=== PATIENT | male | born 1965 | race Caucasian/White ===

== ENCOUNTER 2017-12-15 12:46 | Inpatient (IN) | payer BC, OTHER ==
[~2017-12-15] VITALS: Ht 175.3 cm; Wt 80.5 kg
[2017-12-15] MEDS ORDERED: normal saline 1000ML IV soln IVB ONE (12:55)
[2017-12-15 13:22] LABS: BASOPHILS % (AUTO) 0.3 % (0-1); EOSINOPHILS # (AUTO) 0.1 X10'3 (0-0.9); EOSINOPHILS % (AUTO) 0.4 % (0-6); HEMATOCRIT 28.4 % (42.0-52.0); HEMOGLOBIN 8.7 g/dl (14.0-17.9); LYMPHOCYTES # (AUTO) 1.5 X10'3 (1.1-4.8); LYMPHOCYTES % (AUTO) 10.7 % (21-51); MEAN CORPUSCULAR HEMOGLOBIN 21.9 PG (27.0-31.0); MEAN CORPUSCULAR HGB CONC 30.7 % (33.0-36.5); MEAN CORPUSCULAR VOLUME 71.3 FL (78-98); MEAN PLATELET VOLUME 7.3 FL (7.4-10.4); MONOCYTES # (AUTO) 1.6 X10'3 (0-0.9); MONOCYTES % (AUTO) 10.9 % (2-12); NEUTROPHILS # (AUTO) 11.2 X10'3 (1.8-7.7); NEUTROPHILS % (AUTO) 77.7 % (42-75); PLATELET COUNT 629 X10'3 (140-440); RED BLOOD COUNT 3.97 X10'6 (4.70-6.10); RED CELL DISTRIBUTION WIDTH 18.8 % (11.5-14.5); WHITE BLOOD COUNT 14.4 X10'3 (4.5-11.0)
[2017-12-15 13:37] LABS: ANION GAP 10 (8-16); BLOOD UREA NITROGEN 12 MG/DL (7-18); BUN/CREATININE RATIO 13.2 (5.4-32.0); CHLORIDE 100 MMOL/L (99-107); CREATININE 0.91 MG/DL (0.60-1.10); D-DIMER 1.39 MG/L FEU (0-0.50); GLUCOSE 118 MG/DL (70-104); POTASSIUM 3.6 MMOL/L (3.5-5.1); SODIUM 135 MMOL/L (135-145); TOTAL CARBON DIOXIDE 25.3 MMOL/L (24-32)
[2017-12-15 13:38] LABS: ALANINE AMINOTRANSFERASE 16 U/L (12-78); ALBUMIN 2.3 G/DL (3.4-5.0); ALBUMIN/GLOBULIN RATIO 0.5 (1.1-1.5); ALKALINE PHOSPHATASE 87 IU/L (46-116); ASPARTATE AMINO TRANSFERASE 18 U/L (10-37); BILIRUBIN,TOTAL 0.4 MG/DL (0.1-1.0); CALCIUM 8.7 MG/DL (8.5-10.1); LIPASE 109 U/L (73-393); TOTAL PROTEIN 6.9 G/DL (6.4-8.2); eGFR 87 ML/MIN
[2017-12-15 13:54] LABS: CLARITY,URINE SLIGHTLY CLOUDY (Clear); COLOR,URINE YELLOW (Yellow); GLUCOSE, URINE NEGATIVE (Neg); KETONES,URINE TRACE mg/dl (Neg); LEUKOCYTE ESTERASE ,URINE NEGATIVE (Neg); NITRITES, URINE NEGATIVE (Neg); OCCULT BLOOD,URINE SMALL (Neg); PROTEIN,URINE TRACE mg/dl (Neg); UROBILINOGEN,URINE 0.2 E.U/dL (0.2-1.0)
[2017-12-15 13:59] LABS: UA COLLECTION TYPE CLN CATCH MIDSTREAM
[2017-12-15 14:00] LABS: AMORPHOUS URATES 1+; BACTERIA,URINE NONE SEEN /HPF (Neg); MUCUS STRANDS MODERATE /LPF (Neg); RBC,URINE 0-2 /HPF (0-2); SQUAMOUS EPITHELIAL CELL,UR FEW /LPF (FEW); WBC,URINE 0-4 /HPF (0-4)
[2017-12-15] MEDS ORDERED: morphine 4 MG/ML inj SYRINge IV ONE (14:20)
[2017-12-15] MEDS: MORPHINE 2MG in 2ml NS syringe IV PRN ×3 (14:56→17:28)
[2017-12-15] MEDS ORDERED: levoFLOXACIN-Levaquin 750MG/D5 150 ML IV STA (17:06)
[2017-12-15] MEDS ORDERED: magnesium Cl slow-release 64mg tablet PO PRN (17:10)
[2017-12-15] MEDS ORDERED: HYDROcodone/acetaminophen 5mg/325mg tablet PO PRN (17:10)
[2017-12-15] MEDS ORDERED: potassium Cl 40MEQ/NS 500ml 500 ML IV PRN ×2 (17:10)
[2017-12-15] MEDS ORDERED: morphine 4 MG/ML inj SYRINge IV PRN (17:10)
[2017-12-15] MEDS: K and/or MAG REPLACEMENT MC SCH (17:10)
[2017-12-15] MEDS ORDERED: acetaminophen 325mg tablet PO PRN ×2 (17:10)
[2017-12-15] MEDS ORDERED: magnesium 2GM in 50ml NS 50 ML IV PRN (17:10)
[2017-12-15] MEDS ORDERED: diphenhydrAMINE 50 mg/ml inj IV PRN (17:10)
[2017-12-15] MEDS ORDERED: ondansetron/PF 4mg/2ml inj IV PRN (17:10)
[2017-12-15] MEDS ORDERED: magnesium 4gm in 100ml NS 100 ML IV PRN (17:10)
[2017-12-15] MEDS ORDERED: potassium Cl 20 mEq SR tablet PO PRN (17:10)
[2017-12-15] MEDS ORDERED: mag hydrox/Alum hydrox/simeth 30ml oral suspension PO PRN (17:10)
[2017-12-15] MEDS ORDERED: HYDROcodone/acetaminophen 10/325mg tab PO PRN (17:10)
[2017-12-15] MEDS ORDERED: magnesium hydroxide 30ml (MOM) UD suspension PO PRN (17:10)
[2017-12-15] MEDS: normal saline 1000ml 1,000 ML IV SCH (17:22)
[2017-12-15] MEDS ORDERED: iohexol 350MG/ML 100ml bottle IV ONE (17:25)
[2017-12-15 17:33] LABS: HEMOGLOBIN A1C 5.2 % (4.5-6.2)
[2017-12-15] MEDS ORDERED: heparin 10,000 units/1 ML INJ IV PRN (17:40)
[2017-12-15] MEDS ORDERED: heparin 10,000 units/1 ML INJ IV ONE ×2 (17:40)
[2017-12-15 18:01] LABS: HEMATOCRIT 22.8 % (42.0-52.0); HEMOGLOBIN 7.2 g/dl (14.0-17.9); MEAN CORPUSCULAR HEMOGLOBIN 22.3 PG (27.0-31.0); MEAN CORPUSCULAR HGB CONC 31.4 % (33.0-36.5); MEAN CORPUSCULAR VOLUME 71.2 FL (78-98); PLATELET COUNT 549 X10'3 (140-440); RED CELL DISTRIBUTION WIDTH 18.8 % (11.5-14.5); WHITE BLOOD COUNT 11.8 X10'3 (4.5-11.0)
[2017-12-15 18:02] LABS: BASOPHILS % (AUTO) 0.2 % (0-1); EOSINOPHILS # (AUTO) 0.1 X10'3 (0-0.9); EOSINOPHILS % (AUTO) 1.2 % (0-6); HEMATOCRIT 22.1 % (42.0-52.0); HEMOGLOBIN 7.1 g/dl (14.0-17.9); LYMPHOCYTES # (AUTO) 1.6 X10'3 (1.1-4.8); LYMPHOCYTES % (AUTO) 13.2 % (21-51); MEAN CORPUSCULAR HEMOGLOBIN 22.5 PG (27.0-31.0); MEAN CORPUSCULAR HGB CONC 31.9 % (33.0-36.5); MEAN CORPUSCULAR VOLUME 70.5 FL (78-98); MEAN PLATELET VOLUME 6.8 FL (7.4-10.4); MONOCYTES # (AUTO) 1.4 X10'3 (0-0.9); MONOCYTES % (AUTO) 11.6 % (2-12); NEUTROPHILS # (AUTO) 8.8 X10'3 (1.8-7.7); NEUTROPHILS % (AUTO) 73.8 % (42-75); PLATELET COUNT 528 X10'3 (140-440); RED BLOOD COUNT 3.14 X10'6 (4.70-6.10); RED CELL DISTRIBUTION WIDTH 18.6 % (11.5-14.5); WHITE BLOOD COUNT 11.9 X10'3 (4.5-11.0)
[2017-12-15] MEDS ORDERED: NO HOME MEDS (18:10)
[2017-12-15 18:14] LABS: NEUTROPHILS % (MANUAL) 66 % (42-75); PROTHROMBIN TIME 10.1 SECONDS (9.0-12.0); TOTAL CELLS COUNTED 100
[2017-12-15 18:15] LABS: ANISOCYTOSIS 2+; BANDS% (MANUAL) 10 % (0-10); BASOPHILS % (MANUAL) 1 % (0-1); HYPOCHROMASIA 1+; LYMPHOCYTES % (MANUAL) 17 % (21-51); MONOCYTES % (MANUAL) 6 % (2-12); NUCLEATED RED BLOOD CELLS 3 /100WBC (0-0); PLATELET ESTIMATE INCREASED
[2017-12-15] MEDS: morphine 4 MG/ML inj SYRINge IV PRN ×2 (18:33→22:37)
[2017-12-15] MEDS ORDERED: iohexol 300mg/ml 100ml inj. ONE (19:26)
[2017-12-15] MEDS ORDERED: heparin 1,000 UNITS/NS 500ml 500 ML ONE ×2 (19:30→20:17)
[2017-12-15] MEDS ORDERED: fentaNYL/PF 50MCG/1 ML 2ML syringe IV PRN (19:30)
[2017-12-15] MEDS ORDERED: LIDOcaine 1%/PF (10mg/ml) 5ml vial SQ ONE (19:30)
[2017-12-15] MEDS ORDERED: midazolam 2 mg/2 ml injection ONE (19:30)
[2017-12-15] MEDS ORDERED: fentaNYL/PF 50MCG/1 ML 2ML syringe ONE (19:30)
[2017-12-15] MEDS ORDERED: midazolam 2 mg/2 ml injection IV PRN (19:30)
[2017-12-15] MEDS ORDERED: tPA-cathflo 2mg/2ml IV flush 4 MG in normal saline 100ml IV soln 100 ML ICATH ONE (20:06)
[2017-12-15] MEDS ORDERED: heparin 1,000 UNITS/NS 500ml 500 ML IV SCH (20:10)
[2017-12-15 20:30] VITALS: BP 108/71
[2017-12-15] MEDS ORDERED: heparin 1,000 UNITS/NS 500ml 500 ML IV ONE (20:42)
[2017-12-15 21:00] VITALS: BP 119/74
[2017-12-15] MEDS ORDERED: temazepam 15mg capsule PO PRN (21:00)
[2017-12-15] MEDS: heparin 1,000 UNITS/NS 500ml 500 ML IV SCH (21:17)
[2017-12-15 22:00] VITALS: BP 132/87
[2017-12-15] MEDS: HYDROmorphone/NS 1 mg/ml CADD 50 ML IV SCH (22:11)
[2017-12-15 23:00] VITALS: BP 157/94
[2017-12-16] VITALS (32 sets, daily range): BP systolic 122–174; BP diastolic 80–105
[2017-12-16] MEDS: metroNIDAZOLE-Flagyl 500mg/NS 100 ML IV SCH ×3 (01:55→16:00)
[2017-12-16 02:18] LABS: BASOPHILS % (AUTO) 0 % (0-1); EOSINOPHILS # (AUTO) 0.4 X10'3 (0-0.9); EOSINOPHILS % (AUTO) 1.8 % (0-6); HEMOGLOBIN 7.4 g/dl (14.0-17.9); LYMPHOCYTES # (AUTO) 0.7 X10'3 (1.1-4.8); LYMPHOCYTES % (AUTO) 3.3 % (21-51); MEAN CORPUSCULAR HEMOGLOBIN 22.2 PG (27.0-31.0); MEAN CORPUSCULAR HGB CONC 30.9 % (33.0-36.5); MEAN CORPUSCULAR VOLUME 71.9 FL (78-98); MEAN PLATELET VOLUME 6.9 FL (7.4-10.4); MONOCYTES # (AUTO) 1.9 X10'3 (0-0.9); MONOCYTES % (AUTO) 8.6 % (2-12); NEUTROPHILS # (AUTO) 18.7 X10'3 (1.8-7.7); NEUTROPHILS % (AUTO) 86.3 % (42-75); PLATELET COUNT 494 X10'3 (140-440); RED BLOOD COUNT 3.33 X10'6 (4.70-6.10); RED CELL DISTRIBUTION WIDTH 18.6 % (11.5-14.5); WHITE BLOOD COUNT 21.6 X10'3 (4.5-11.0)
[2017-12-16 02:22] LABS: PROTHROMBIN TIME 10.8 SECONDS (9.0-12.0)
[2017-12-16] MEDS: HYDROmorphone/NS 1 mg/ml CADD 50 ML IV SCH ×4 (02:28→22:07)
[2017-12-16 03:05] LABS: RHEUM FACTOR QUAL REFLEX TITER NEGATIVE (Neg)
[2017-12-16] MEDS: normal saline 1000ml 1,000 ML IV SCH ×3 (03:43→23:06)
[2017-12-16 04:07] LABS: ALANINE AMINOTRANSFERASE 12 U/L (12-78); ALBUMIN 1.9 G/DL (3.4-5.0); ALBUMIN/GLOBULIN RATIO 0.5 (1.1-1.5); ALKALINE PHOSPHATASE 82 IU/L (46-116); ANION GAP 12 (8-16); ASPARTATE AMINO TRANSFERASE 21 U/L (10-37); BILIRUBIN,TOTAL 0.3 MG/DL (0.1-1.0); BLOOD UREA NITROGEN 11 MG/DL (7-18); BUN/CREATININE RATIO 14.3 (5.4-32.0); CHLORIDE 104 MMOL/L (99-107); CHOL/HDL RATIO 2.4 (0.00-4.99); CHOLESTEROL 140 MG/DL (0-200); CREATININE 0.77 MG/DL (0.60-1.10); GLUCOSE 123 MG/DL (70-104); HDL CHOLESTEROL 58 MG/DL (35-60); LDL CHOLESTEROL 62 MG/DL (50-100); PHOSPHORUS 3.5 MG/DL (2.3-4.5); POTASSIUM 3.2 MMOL/L (3.5-5.1); SODIUM 137 MMOL/L (135-145); TOTAL CARBON DIOXIDE 20.9 MMOL/L (24-32); TOTAL PROTEIN 5.9 G/DL (6.4-8.2); TRIGLYCERIDES 60 MG/DL (20-135); eGFR > 90 ML/MIN
[2017-12-16] MEDS: potassium Cl 20 mEq SR tablet PO PRN (04:58)
[2017-12-16] MEDS: K and/or MAG REPLACEMENT MC SCH (08:00)
[2017-12-16] MEDS ORDERED: tPA-cathflo 2mg/2ml IV flush 4 MG in normal saline 100ml IV soln 100 ML ICATH ONE (08:10)
[2017-12-16 08:21] LABS: HEMATOCRIT 24.1 % (42.0-52.0); HEMOGLOBIN 7.5 g/dl (14.0-17.9); MEAN CORPUSCULAR HEMOGLOBIN 22.4 PG (27.0-31.0); MEAN CORPUSCULAR HGB CONC 31.1 % (33.0-36.5); MEAN CORPUSCULAR VOLUME 72.1 FL (78-98); PLATELET COUNT 461 X10'3 (140-440); RED BLOOD COUNT 3.34 X10'6 (4.70-6.10); RED CELL DISTRIBUTION WIDTH 18.3 % (11.5-14.5); WHITE BLOOD COUNT 17.2 X10'3 (4.5-11.0)
[2017-12-16 08:36] LABS: ALANINE AMINOTRANSFERASE 16 U/L (12-78); ALBUMIN 1.9 G/DL (3.4-5.0); ALBUMIN/GLOBULIN RATIO 0.5 (1.1-1.5); ALKALINE PHOSPHATASE 77 IU/L (46-116); ANION GAP 11 (8-16); ASPARTATE AMINO TRANSFERASE 20 U/L (10-37); BILIRUBIN,TOTAL 0.2 MG/DL (0.1-1.0); BLOOD UREA NITROGEN 12 MG/DL (7-18); CALCIUM 8.1 MG/DL (8.5-10.1); CHLORIDE 106 MMOL/L (99-107); GLUCOSE 132 MG/DL (70-104); POTASSIUM 3.5 MMOL/L (3.5-5.1); SODIUM 141 MMOL/L (135-145); TOTAL CARBON DIOXIDE 23.6 MMOL/L (24-32); TOTAL PROTEIN 5.9 G/DL (6.4-8.2); eGFR > 90 ML/MIN
[2017-12-16] MEDS ORDERED: iohexol 300 MG/1 ML 50ml polymer ONE (11:25)
[2017-12-16 11:34] LABS: OCCULT BLOOD STOOL POSITIVE (Neg)
[2017-12-16 11:49] LABS: C DIFF ANTIGEN NEGATIVE (NEGATIVE); C DIFF SPECIMEN=DIARRHEA? ACCEPTABLE; C DIFFICILE TOXINS A&B NEGATIVE (Neg)
[2017-12-16 11:59] LABS: CRYPTOSPORIDIUM AG NEGATIVE (Neg); GIARDIA LAMBLIA AG NEGATIVE (Neg)
[2017-12-16] MEDS ORDERED: ceFAZolin 1000mg inj ONE (12:43)
[2017-12-16] MEDS ORDERED: heparin 10,000 units/1 ML INJ ONE (12:43)
[2017-12-16] MEDS ORDERED: midazolam 2 mg/2 ml injection ONE (13:18)
[2017-12-16] MEDS ORDERED: fentaNYL /PF 50mcg/ml 5ml ampule ONE (13:18)
[2017-12-16] MEDS ORDERED: rocuronium 10mg/ml inj IV ONE (13:20)
[2017-12-16] MEDS ORDERED: propofol inj 20 ML IV ONE (13:20)
[2017-12-16] MEDS ORDERED: sevoflurane 250ml liquid IH ONE (13:28)
[2017-12-16] MEDS ORDERED: dexamethasone sod phosphate 4mg/ml inj. ONE (13:42)
[2017-12-16] MEDS ORDERED: heparin 1,000unit/ml 10ml vial 10 ML ONE (14:40)
[2017-12-16 16:06] LABS: ISTAT ANION GAP 8 (8-12); ISTAT BUN 10 mg/dL (6-19); ISTAT CL 108 mmol/L (99-107); ISTAT CREATININE 0.8 mg/dL (0.8-1.3); ISTAT GLUCOSE 126 mg/dL (70-104); ISTAT HGB 8.5 g/dl (14.0-18.0); ISTAT Hct 25 %PCV (42-52); ISTAT IONIZED CALCIUM 1.16 mmol/L (1.03-1.32); ISTAT K 3.7 mmol/L (3.5-5.1); ISTAT NA 138 mmol/L (135-145); ISTAT TOTAL CO2 22 mmol/L (24-32); ISTAT eGFR > 90 ML/MIN; POC BUN/CREATININE RATIO 12.5 (5.4-32.0)
[2017-12-16] MEDS ORDERED: glycopyrrolate 0.2mg/ml inj ONE (16:54)
[2017-12-16] MEDS ORDERED: ondansetron/PF 4mg/2ml inj ONE (16:54)
[2017-12-16] MEDS ORDERED: neostigmine methylsulfate 1 MG/ML 10ml vial ONE (16:54)
[2017-12-16] MEDS ORDERED: morphine 10mg/ml inj. ONE (16:55)
[2017-12-16 17:42] LABS: BASOPHILS % (AUTO) 0.1 % (0-1); EOSINOPHILS % (AUTO) 0 % (0-6); HEMATOCRIT 28.8 % (42.0-52.0); HEMOGLOBIN 9.2 g/dl (14.0-17.9); LYMPHOCYTES # (AUTO) 0.7 X10'3 (1.1-4.8); LYMPHOCYTES % (AUTO) 4.4 % (21-51); MEAN CORPUSCULAR HEMOGLOBIN 24.3 PG (27.0-31.0); MEAN CORPUSCULAR HGB CONC 31.9 % (33.0-36.5); MEAN CORPUSCULAR VOLUME 76.2 FL (78-98); MEAN PLATELET VOLUME 6.9 FL (7.4-10.4); MONOCYTES # (AUTO) 0.9 X10'3 (0-0.9); MONOCYTES % (AUTO) 5.6 % (2-12); NEUTROPHILS # (AUTO) 14.1 X10'3 (1.8-7.7); NEUTROPHILS % (AUTO) 89.9 % (42-75); PLATELET COUNT 377 X10'3 (140-440); RED BLOOD COUNT 3.78 X10'6 (4.70-6.10); RED CELL DISTRIBUTION WIDTH 19.2 % (11.5-14.5); WHITE BLOOD COUNT 15.7 X10'3 (4.5-11.0)
[2017-12-16 17:59] LABS: ALANINE AMINOTRANSFERASE 36 U/L (12-78); ALBUMIN 1.6 G/DL (3.4-5.0); ALBUMIN/GLOBULIN RATIO 0.5 (1.1-1.5); ALKALINE PHOSPHATASE 69 IU/L (46-116); ANION GAP 9 (8-16); ASPARTATE AMINO TRANSFERASE 137 U/L (10-37); BILIRUBIN,TOTAL 0.6 MG/DL (0.1-1.0); BLOOD UREA NITROGEN 10 MG/DL (7-18); CALCIUM 7.4 MG/DL (8.5-10.1); CHLORIDE 111 MMOL/L (99-107); CREATININE 0.77 MG/DL (0.60-1.10); GLUCOSE 154 MG/DL (70-104); SODIUM 141 MMOL/L (135-145); TOTAL CARBON DIOXIDE 21.4 MMOL/L (24-32); TOTAL PROTEIN 5.1 G/DL (6.4-8.2); eGFR > 90 ML/MIN
[2017-12-16] MEDS: heparin 1,000 UNITS/NS 500ml 500 ML IV SCH (22:17)
[2017-12-16 22:56] LABS: HEMATOCRIT 27.4 % (42.0-52.0); HEMOGLOBIN 8.9 g/dl (14.0-17.9); MEAN CORPUSCULAR HEMOGLOBIN 24.5 PG (27.0-31.0); MEAN CORPUSCULAR HGB CONC 32.4 % (33.0-36.5); MEAN CORPUSCULAR VOLUME 75.8 FL (78-98); MEAN PLATELET VOLUME 7.3 FL (7.4-10.4); PLATELET COUNT 383 X10'3 (140-440); RED BLOOD COUNT 3.62 X10'6 (4.70-6.10); RED CELL DISTRIBUTION WIDTH 19.3 % (11.5-14.5)
[2017-12-17] VITALS (24 sets, daily range): BP systolic 103–160; BP diastolic 77–98
[2017-12-17] MEDS: metroNIDAZOLE-Flagyl 500mg/NS 100 ML IV SCH ×4 (00:12→23:46)
[2017-12-17 02:22] LABS: BASOPHILS % (AUTO) 0.1 % (0-1); EOSINOPHILS % (AUTO) 0.1 % (0-6); HEMATOCRIT 26.3 % (42.0-52.0); HEMOGLOBIN 8.5 g/dl (14.0-17.9); LYMPHOCYTES # (AUTO) 0.8 X10'3 (1.1-4.8); MEAN CORPUSCULAR HEMOGLOBIN 24.6 PG (27.0-31.0); MEAN CORPUSCULAR HGB CONC 32.2 % (33.0-36.5); MEAN CORPUSCULAR VOLUME 76.4 FL (78-98); MEAN PLATELET VOLUME 7.4 FL (7.4-10.4); MONOCYTES # (AUTO) 1.6 X10'3 (0-0.9); MONOCYTES % (AUTO) 10.4 % (2-12); NEUTROPHILS # (AUTO) 12.9 X10'3 (1.8-7.7); NEUTROPHILS % (AUTO) 84.4 % (42-75); PLATELET COUNT 390 X10'3 (140-440); RED BLOOD COUNT 3.44 X10'6 (4.70-6.10); RED CELL DISTRIBUTION WIDTH 19.6 % (11.5-14.5); WHITE BLOOD COUNT 15.3 X10'3 (4.5-11.0)
[2017-12-17 02:42] LABS: ALANINE AMINOTRANSFERASE 45 U/L (12-78); ALBUMIN 1.6 G/DL (3.4-5.0); ALBUMIN/GLOBULIN RATIO 0.5 (1.1-1.5); ALKALINE PHOSPHATASE 70 IU/L (46-116); ANION GAP 9 (8-16); ASPARTATE AMINO TRANSFERASE 156 U/L (10-37); BILIRUBIN,TOTAL 0.4 MG/DL (0.1-1.0); BLOOD UREA NITROGEN 9 MG/DL (7-18); BUN/CREATININE RATIO 12.7 (5.4-32.0); CALCIUM 7.6 MG/DL (8.5-10.1); CHLORIDE 104 MMOL/L (99-107); CREATININE 0.71 MG/DL (0.60-1.10); GLUCOSE 131 MG/DL (70-104); SODIUM 135 MMOL/L (135-145); TOTAL CARBON DIOXIDE 22.4 MMOL/L (24-32); eGFR > 90 ML/MIN
[2017-12-17] MEDS: HYDROmorphone/NS 1 mg/ml CADD 50 ML IV SCH ×7 (03:01→22:56)
[2017-12-17] MEDS: normal saline 1000ml 1,000 ML IV SCH ×3 (03:07→19:06)
[2017-12-17] MEDS: K and/or MAG REPLACEMENT MC SCH (08:23)
[2017-12-17] MEDS: heparin 1,000 UNITS/NS 500ml 500 ML IV SCH (10:33)
[2017-12-17] MEDS: apixaban 5mg tablet PO SCH ×2 (16:34→19:58)
[2017-12-17 19:41] LABS: RED BLOOD COUNT 3.44 X10'6 (4.70-6.10); WHITE BLOOD COUNT 15.3 X10'3 (4.5-11.0)
[2017-12-17 19:42] LABS: HEMATOCRIT 25.9 % (42.0-52.0); HEMOGLOBIN 8.4 g/dl (14.0-17.9); MEAN CORPUSCULAR HEMOGLOBIN 24.4 PG (27.0-31.0); MEAN CORPUSCULAR HGB CONC 32.4 % (33.0-36.5); MEAN CORPUSCULAR VOLUME 75.3 FL (78-98); MEAN PLATELET VOLUME 7.9 FL (7.4-10.4); PLATELET COUNT 403 X10'3 (140-440); RED CELL DISTRIBUTION WIDTH 19.1 % (11.5-14.5)
[2017-12-17] MEDS: CADD PCA waste documentation MC SCH (22:57)
[2017-12-18] VITALS (16 sets, daily range): BP systolic 118–140; BP diastolic 74–92
[2017-12-18] MEDS: HYDROmorphone/NS 1 mg/ml CADD 50 ML IV SCH ×6 (02:49→23:00)
[2017-12-18] MEDS: normal saline 1000ml 1,000 ML IV SCH ×2 (05:06→16:19)
[2017-12-18 05:13] LABS: BASOPHILS % (AUTO) 0.2 % (0-1); EOSINOPHILS # (AUTO) 0.2 X10'3 (0-0.9); EOSINOPHILS % (AUTO) 1.4 % (0-6); HEMATOCRIT 26.5 % (42.0-52.0); HEMOGLOBIN 8.5 g/dl (14.0-17.9); LYMPHOCYTES # (AUTO) 1.5 X10'3 (1.1-4.8); LYMPHOCYTES % (AUTO) 11.2 % (21-51); MEAN CORPUSCULAR HEMOGLOBIN 24.4 PG (27.0-31.0); MEAN CORPUSCULAR HGB CONC 32.1 % (33.0-36.5); MEAN PLATELET VOLUME 7.4 FL (7.4-10.4); MONOCYTES # (AUTO) 1.9 X10'3 (0-0.9); MONOCYTES % (AUTO) 13.9 % (2-12); NEUTROPHILS # (AUTO) 10.1 X10'3 (1.8-7.7); NEUTROPHILS % (AUTO) 73.3 % (42-75); PLATELET COUNT 431 X10'3 (140-440); RED BLOOD COUNT 3.49 X10'6 (4.70-6.10); RED CELL DISTRIBUTION WIDTH 19.9 % (11.5-14.5); WHITE BLOOD COUNT 13.8 X10'3 (4.5-11.0)
[2017-12-18 05:51] LABS: ALANINE AMINOTRANSFERASE 69 U/L (12-78); ALBUMIN 1.7 G/DL (3.4-5.0); ALBUMIN/GLOBULIN RATIO 0.4 (1.1-1.5); ALKALINE PHOSPHATASE 104 IU/L (46-116); ANION GAP 9 (8-16); ASPARTATE AMINO TRANSFERASE 187 U/L (10-37); BILIRUBIN,TOTAL 0.4 MG/DL (0.1-1.0); BLOOD UREA NITROGEN 4 MG/DL (7-18); CALCIUM 7.9 MG/DL (8.5-10.1); CHLORIDE 99 MMOL/L (99-107); GLUCOSE 125 MG/DL (70-104); MAGNESIUM 2.2 MG/DL (1.5-2.4); PHOSPHORUS 2.2 MG/DL (2.3-4.5); POTASSIUM 3.3 MMOL/L (3.5-5.1); SODIUM 133 MMOL/L (135-145); TOTAL CARBON DIOXIDE 24.8 MMOL/L (24-32); TOTAL PROTEIN 5.6 G/DL (6.4-8.2); eGFR > 90 ML/MIN
[2017-12-18 06:00] LABS: ANISOCYTOSIS 2+; BANDS% (MANUAL) 15 % (0-10); BASOPHILS % (MANUAL) 2 % (0-1); EOSINOPHILS % (MANUAL) 1 % (0-6); LYMPHOCYTES % (MANUAL) 11 % (21-51); MONOCYTES % (MANUAL) 8 % (2-12); NEUTROPHILS % (MANUAL) 63 % (42-75); PLATELET ESTIMATE NORMAL; TOTAL CELLS COUNTED 100
[2017-12-18 06:01] LABS: HYPOCHROMASIA 1+; POLYCHROMASIA 1+
[2017-12-18] MEDS ORDERED: sodium phosphate inj. 30 MMOL in dextrose 5%-water 250 ML IV PRN (06:46)
[2017-12-18] MEDS ORDERED: sodium phosphate inj. 15 MMOL in dextrose 5%-water 150 ML IV PRN (06:46)
[2017-12-18] MEDS: metroNIDAZOLE-Flagyl 500mg/NS 100 ML IV SCH (07:58)
[2017-12-18] MEDS: potassium Cl 20 mEq SR tablet PO PRN ×3 (07:59→19:49)
[2017-12-18] MEDS: apixaban 5mg tablet PO SCH ×2 (07:59→19:49)
[2017-12-18] MEDS: Neutra Phos packet PO PRN ×2 (07:59→12:35)
[2017-12-18] MEDS: K and/or MAG REPLACEMENT MC SCH (08:12)
[2017-12-18] MEDS ORDERED: heparin 10,000 units/1 ML INJ IV PRN (09:25)
[2017-12-18] MEDS: metroNIDAZOLE 500mg tablet PO SCH (16:19)
[2017-12-18] MEDS ORDERED: potassium Cl 20 mEq SR tablet PO PRN (19:15)
[2017-12-18] MEDS ORDERED: potassium Cl 40MEQ/NS 500ml 500 ML IV PRN ×2 (19:15)
[2017-12-19] VITALS: BP 121/75
[2017-12-19] MEDS: metroNIDAZOLE 500mg tablet PO SCH ×3 (00:09→15:19)
[2017-12-19] MEDS: HYDROmorphone/NS 1 mg/ml CADD 50 ML IV SCH ×12 (01:00→23:00)
[2017-12-19 05:41] LABS: BASOPHILS % (AUTO) 0.2 % (0-1); EOSINOPHILS # (AUTO) 0.1 X10'3 (0-0.9); EOSINOPHILS % (AUTO) 0.5 % (0-6); HEMATOCRIT 22.9 % (42.0-52.0); HEMOGLOBIN 7.4 g/dl (14.0-17.9); LYMPHOCYTES % (AUTO) 8.5 % (21-51); MEAN CORPUSCULAR HEMOGLOBIN 24.4 PG (27.0-31.0); MEAN CORPUSCULAR HGB CONC 32.1 % (33.0-36.5); MEAN CORPUSCULAR VOLUME 76.1 FL (78-98); MEAN PLATELET VOLUME 7.7 FL (7.4-10.4); MONOCYTES # (AUTO) 2.1 X10'3 (0-0.9); NEUTROPHILS # (AUTO) 8.6 X10'3 (1.8-7.7); NEUTROPHILS % (AUTO) 72.8 % (42-75); PLATELET COUNT 394 X10'3 (140-440); RED BLOOD COUNT 3.01 X10'6 (4.70-6.10); RED CELL DISTRIBUTION WIDTH 20.2 % (11.5-14.5); WHITE BLOOD COUNT 11.8 X10'3 (4.5-11.0)
[2017-12-19 06:15] LABS: ALANINE AMINOTRANSFERASE 68 U/L (12-78); ALBUMIN 1.4 G/DL (3.4-5.0); ALBUMIN/GLOBULIN RATIO 0.4 (1.1-1.5); ALKALINE PHOSPHATASE 118 IU/L (46-116); ANION GAP 5 (8-16); ASPARTATE AMINO TRANSFERASE 127 U/L (10-37); BILIRUBIN,TOTAL 0.3 MG/DL (0.1-1.0); BLOOD UREA NITROGEN 5 MG/DL (7-18); BUN/CREATININE RATIO 7.9 (5.4-32.0); CALCIUM 7.7 MG/DL (8.5-10.1); CHLORIDE 99 MMOL/L (99-107); CREATININE 0.63 MG/DL (0.60-1.10); GLUCOSE 113 MG/DL (70-104); PHOSPHORUS 1.9 MG/DL (2.3-4.5); POTASSIUM 3.5 MMOL/L (3.5-5.1); SODIUM 134 MMOL/L (135-145); TOTAL CARBON DIOXIDE 30.3 MMOL/L (24-32); eGFR > 90 ML/MIN
[2017-12-19 06:16] LABS: CREATINE KINASE 2769 U/L (39-308)
[2017-12-19 06:48] LABS: TOTAL CELLS COUNTED 100
[2017-12-19 06:49] LABS: ANISOCYTOSIS 2+; HYPOCHROMASIA 1+; PLATELET ESTIMATE NORMAL
[2017-12-19 07:25] VITALS: BP 127/80
[2017-12-19] MEDS: apixaban 5mg tablet PO SCH ×2 (07:35→20:00)
[2017-12-19] MEDS: pantoprazole 40mg Tablet.DR PO SCH (07:35)
[2017-12-19] MEDS: K and/or MAG REPLACEMENT MC SCH (08:00)
[2017-12-19 11:22] VITALS: BP 123/76
[2017-12-19] MEDS: normal saline 1000ml 1,000 ML IV SCH ×2 (11:33→18:19)
[2017-12-19 12:13] VITALS: BP 118/80
[2017-12-19] MEDS: CADD PCA waste documentation MC SCH (18:01)
[2017-12-19 20:00] VITALS: BP 129/81
[2017-12-20] VITALS (18 sets, daily range): BP systolic 104–160; BP diastolic 54–107
[2017-12-20] MEDS: HYDROmorphone/NS 1 mg/ml CADD 50 ML IV SCH ×13 (01:00→23:00)
[2017-12-20 05:22] LABS: HEMATOCRIT 24.1 % (42.0-52.0); HEMOGLOBIN 7.6 g/dl (14.0-17.9); MEAN CORPUSCULAR HEMOGLOBIN 24.1 PG (27.0-31.0); MEAN CORPUSCULAR HGB CONC 31.4 % (33.0-36.5); MEAN CORPUSCULAR VOLUME 76.6 FL (78-98); MEAN PLATELET VOLUME 7.7 FL (7.4-10.4); PLATELET COUNT 490 X10'3 (140-440); RED BLOOD COUNT 3.15 X10'6 (4.70-6.10); RED CELL DISTRIBUTION WIDTH 20.8 % (11.5-14.5); WHITE BLOOD COUNT 13.8 X10'3 (4.5-11.0)
[2017-12-20 06:06] LABS: ALANINE AMINOTRANSFERASE 64 U/L (12-78); ALBUMIN 1.3 G/DL (3.4-5.0); ALBUMIN/GLOBULIN RATIO 0.3 (1.1-1.5); ALKALINE PHOSPHATASE 119 IU/L (46-116); ANION GAP 6 (8-16); ASPARTATE AMINO TRANSFERASE 114 U/L (10-37); BILIRUBIN,TOTAL 0.3 MG/DL (0.1-1.0); BLOOD UREA NITROGEN 5 MG/DL (7-18); BUN/CREATININE RATIO 8.5 (5.4-32.0); CALCIUM 7.9 MG/DL (8.5-10.1); CHLORIDE 98 MMOL/L (99-107); CREATININE 0.59 MG/DL (0.60-1.10); GLUCOSE 97 MG/DL (70-104); PHOSPHORUS 2.5 MG/DL (2.3-4.5); POTASSIUM 3.1 MMOL/L (3.5-5.1); SODIUM 134 MMOL/L (135-145); TOTAL CARBON DIOXIDE 30.1 MMOL/L (24-32); TOTAL PROTEIN 5.3 G/DL (6.4-8.2); eGFR > 90 ML/MIN
[2017-12-20 06:12] LABS: TOTAL CELLS COUNTED 100
[2017-12-20 06:13] LABS: ANISOCYTOSIS 3+; PLATELET ESTIMATE INCREASED; POLYCHROMASIA 1+
[2017-12-20 06:14] LABS: HYPOCHROMASIA 1+; LARGE PLATELETS FEW
[2017-12-20] MEDS: apixaban 5mg tablet PO SCH ×2 (06:51→20:14)
[2017-12-20] MEDS: metroNIDAZOLE 500mg tablet PO SCH ×3 (06:59→16:10)
[2017-12-20] MEDS: pantoprazole 40mg Tablet.DR PO SCH (06:59)
[2017-12-20] MEDS: potassium Cl 20 mEq SR tablet PO PRN (07:00)
[2017-12-20] MEDS: K and/or MAG REPLACEMENT MC SCH (08:00)
[2017-12-20 09:49] LABS: PROTHROMBIN TIME 10.7 SECONDS (9.0-12.0)
[2017-12-20] MEDS ORDERED: ceFAZolin 1000mg inj ONE (10:18)
[2017-12-20] MEDS ORDERED: bacitracin 15gm ointment TP ONE (10:19)
[2017-12-20] MEDS ORDERED: midazolam 2 mg/2 ml injection ONE ×2 (11:01→13:33)
[2017-12-20] MEDS ORDERED: sevoflurane 250ml liquid IH ONE (11:02)
[2017-12-20] MEDS ORDERED: LIDOcaine 2% (20mg/ml) 5ml vial ONE (11:11)
[2017-12-20] MEDS ORDERED: fentaNYL /PF 50mcg/ml 5ml ampule ONE (11:11)
[2017-12-20] MEDS ORDERED: propofol inj 20 ML IV ONE (11:11)
[2017-12-20] MEDS ORDERED: ringers solution, lacted 1,000 ML IV SCH (13:31)
[2017-12-20] MEDS ORDERED: meperidine/PF 25mg/ml syringe ONE (13:32)
[2017-12-20] MEDS ORDERED: morphine 4 MG/ML inj SYRINge IV PRN ×2 (13:35)
[2017-12-20] MEDS ORDERED: proCHLORperazine 10 MG/2 ml inj IV PRN (13:35)
[2017-12-20] MEDS ORDERED: ondansetron/PF 4mg/2ml inj IV PRN (13:35)
[2017-12-20] MEDS ORDERED: meperidine/PF 50mg/ml syringe IV PRN ×3 (13:35)
[2017-12-20 15:46] LABS: ISTAT ANION GAP 9 (8-12); ISTAT BUN 4 mg/dL (6-19); ISTAT CL 97 mmol/L (99-107); ISTAT CREATININE 0.6 mg/dL (0.8-1.3); ISTAT GLUCOSE 119 mg/dL (70-104); ISTAT HGB 8.8 g/dl (14.0-18.0); ISTAT Hct 26 %PCV (42-52); ISTAT IONIZED CALCIUM 1.05 mmol/L (1.03-1.32); ISTAT K 3.6 mmol/L (3.5-5.1); ISTAT NA 133 mmol/L (135-145); ISTAT TOTAL CO2 27 mmol/L (24-32); ISTAT eGFR > 90 ML/MIN; POC BUN/CREATININE RATIO 6.7 (5.4-32.0)
[2017-12-20] MEDS: ceFAZolin 1GM/D5W- ADD-VANTAGE 50 ML IV SCH (16:10)
[2017-12-20] MEDS: normal saline 1000ml 1,000 ML IV SCH (20:14)
[2017-12-20] MEDS: vancomycin/NS 1 GM ADD-VANTAGE 250 ML IV SCH (20:14)
[2017-12-20] MEDS: lactobacillus rhamnosus 10,000 MMU CELLS/CAPSULE PO SCH (20:14)
[2017-12-21] MEDS: ceFAZolin 1GM/D5W- ADD-VANTAGE 50 ML IV SCH ×3 (00:08→17:35)
[2017-12-21] MEDS: metroNIDAZOLE 500mg tablet PO SCH ×3 (00:08→17:35)
[2017-12-21] MEDS: HYDROmorphone/NS 1 mg/ml CADD 50 ML IV SCH ×9 (01:00→17:00)
[2017-12-21 02:00] VITALS: BP 108/64
[2017-12-21 06:00] VITALS: BP 116/67
[2017-12-21 06:49] LABS: BASOPHILS % (AUTO) 0.2 % (0-1); EOSINOPHILS # (AUTO) 0.1 X10'3 (0-0.9); EOSINOPHILS % (AUTO) 0.9 % (0-6); HEMATOCRIT 23.9 % (42.0-52.0); HEMOGLOBIN 7.9 g/dl (14.0-17.9); LYMPHOCYTES % (AUTO) 8.3 % (21-51); MEAN CORPUSCULAR HEMOGLOBIN 25.3 PG (27.0-31.0); MEAN CORPUSCULAR HGB CONC 33.2 % (33.0-36.5); MEAN CORPUSCULAR VOLUME 76.4 FL (78-98); MEAN PLATELET VOLUME 7.5 FL (7.4-10.4); MONOCYTES # (AUTO) 2.2 X10'3 (0-0.9); MONOCYTES % (AUTO) 18.1 % (2-12); NEUTROPHILS # (AUTO) 8.8 X10'3 (1.8-7.7); NEUTROPHILS % (AUTO) 72.5 % (42-75); PLATELET COUNT 498 X10'3 (140-440); RED BLOOD COUNT 3.12 X10'6 (4.70-6.10); RED CELL DISTRIBUTION WIDTH 20.9 % (11.5-14.5); WHITE BLOOD COUNT 12.2 X10'3 (4.5-11.0)
[2017-12-21 07:12] LABS: % IRON SATURATION 6 % (11-46); IRON 8 UG/DL (53-167); TOTAL IRON BINDING CAPACITY 144 UG/DL (259-388)
[2017-12-21 07:27] LABS: TOTAL CELLS COUNTED 100
[2017-12-21 07:28] LABS: ANISOCYTOSIS 3+; BANDS% (MANUAL) 12 % (0-10); HYPOCHROMASIA 1+; LYMPHOCYTES % (MANUAL) 7 % (21-51); MONOCYTES % (MANUAL) 16 % (2-12); NEUTROPHILS % (MANUAL) 65 % (42-75); NUCLEATED RED BLOOD CELLS 1 /100WBC (0-0); PLATELET ESTIMATE INCREASED; POLYCHROMASIA 1+; TARGET CELLS FEW; TOXIC GRANULATION 1+; TOXIC VACUOLATION 1+
[2017-12-21 07:31] LABS: ALANINE AMINOTRANSFERASE 53 U/L (12-78); ALBUMIN 1.2 G/DL (3.4-5.0); ALBUMIN/GLOBULIN RATIO 0.3 (1.1-1.5); ALKALINE PHOSPHATASE 114 IU/L (46-116); ANION GAP 8 (8-16); ASPARTATE AMINO TRANSFERASE 85 U/L (10-37); BILIRUBIN,TOTAL 0.3 MG/DL (0.1-1.0); BLOOD UREA NITROGEN 5 MG/DL (7-18); BUN/CREATININE RATIO 6.9 (5.4-32.0); CALCIUM 7.5 MG/DL (8.5-10.1); CHLORIDE 97 MMOL/L (99-107); CREATININE 0.72 MG/DL (0.60-1.10); GLUCOSE 97 MG/DL (70-104); MAGNESIUM 1.8 MG/DL (1.5-2.4); POTASSIUM 3.5 MMOL/L (3.5-5.1); SODIUM 134 MMOL/L (135-145); TOTAL CARBON DIOXIDE 28.7 MMOL/L (24-32); TOTAL PROTEIN 5.1 G/DL (6.4-8.2); eGFR > 90 ML/MIN
[2017-12-21 07:32] LABS: FERRITIN 40 NG/ML (26-388)
[2017-12-21] MEDS: K and/or MAG REPLACEMENT MC SCH (08:00)
[2017-12-21] MEDS: lactobacillus rhamnosus 10,000 MMU CELLS/CAPSULE PO SCH ×2 (08:24→19:24)
[2017-12-21] MEDS: pantoprazole 40mg Tablet.DR PO SCH (08:24)
[2017-12-21] MEDS: vancomycin/NS 1 GM ADD-VANTAGE 250 ML IV SCH ×2 (08:24→19:24)
[2017-12-21] MEDS: gabapentin 300mg capsule PO SCH ×2 (08:25→17:34)
[2017-12-21] MEDS: apixaban 5mg tablet PO SCH ×2 (08:26→17:34)
[2017-12-21 10:00] VITALS: BP 118/60
[2017-12-21 14:00] VITALS: BP 116/55
[2017-12-21 17:00] VITALS: BP 125/62
[2017-12-21] MEDS: Protein Shake (high protein) 240ml (8oz) cup PO SCH (18:00)
[2017-12-21] MEDS: normal saline 1000ml 1,000 ML IV SCH (19:05)
[2017-12-21] MEDS ORDERED: MORPHINE 2MG in 2ml NS syringe IV PRN (19:20)
[2017-12-21] MEDS ORDERED: morphine 4 MG/ML inj SYRINge IV PRN (19:20)
[2017-12-21] MEDS: oxyCODONE/APAP 10/325mg tablet PO PRN (19:25)
[2017-12-21] MEDS: CADD PCA waste documentation MC SCH (19:38)
[2017-12-21] MEDS: sodium ferric gluc complex inj 125 MG in normal saline 100ml IV soln 100 ML IV SCH (21:38)
[2017-12-21 22:00] VITALS: BP 130/64
[2017-12-22] MEDS: metroNIDAZOLE 500mg tablet PO SCH ×4 (00:22→23:55)
[2017-12-22] MEDS: ceFAZolin 1GM/D5W- ADD-VANTAGE 50 ML IV SCH ×2 (00:22→07:20)
[2017-12-22] MEDS: oxyCODONE/APAP 10/325mg tablet PO PRN ×4 (00:22→22:37)
[2017-12-22] MEDS: gabapentin 300mg capsule PO SCH ×4 (00:22→23:55)
[2017-12-22 06:00] VITALS: BP 104/65
[2017-12-22 07:05] LABS: BASOPHILS # (AUTO) 0.1 X10'3 (0-0.2); BASOPHILS % (AUTO) 0.5 % (0-1); EOSINOPHILS # (AUTO) 0.2 X10'3 (0-0.9); EOSINOPHILS % (AUTO) 1.4 % (0-6); HEMATOCRIT 25.9 % (42.0-52.0); HEMOGLOBIN 8.4 g/dl (14.0-17.9); LYMPHOCYTES # (AUTO) 1.2 X10'3 (1.1-4.8); LYMPHOCYTES % (AUTO) 10.2 % (21-51); MEAN CORPUSCULAR HGB CONC 32.3 % (33.0-36.5); MEAN CORPUSCULAR VOLUME 77.4 FL (78-98); MEAN PLATELET VOLUME 6.9 FL (7.4-10.4); MONOCYTES # (AUTO) 1.8 X10'3 (0-0.9); MONOCYTES % (AUTO) 15.9 % (2-12); NEUTROPHILS # (AUTO) 8.2 X10'3 (1.8-7.7); PLATELET COUNT 608 X10'3 (140-440); RED BLOOD COUNT 3.35 X10'6 (4.70-6.10); RED CELL DISTRIBUTION WIDTH 21.2 % (11.5-14.5); WHITE BLOOD COUNT 11.4 X10'3 (4.5-11.0)
[2017-12-22] MEDS: apixaban 5mg tablet PO SCH ×2 (07:18→19:29)
[2017-12-22] MEDS: lactobacillus rhamnosus 10,000 MMU CELLS/CAPSULE PO SCH ×2 (07:18→19:29)
[2017-12-22] MEDS: pantoprazole 40mg Tablet.DR PO SCH (07:18)
[2017-12-22 07:28] LABS: ALANINE AMINOTRANSFERASE 50 U/L (12-78); ALBUMIN 1.2 G/DL (3.4-5.0); ALBUMIN/GLOBULIN RATIO 0.3 (1.1-1.5); ALKALINE PHOSPHATASE 132 IU/L (46-116); ANION GAP 8 (8-16); ANISOCYTOSIS 3+; ASPARTATE AMINO TRANSFERASE 74 U/L (10-37); BILIRUBIN,TOTAL 0.2 MG/DL (0.1-1.0); BLOOD UREA NITROGEN 5 MG/DL (7-18); BUN/CREATININE RATIO 7.5 (5.4-32.0); CALCIUM 7.9 MG/DL (8.5-10.1); CHLORIDE 101 MMOL/L (99-107); CREATININE 0.67 MG/DL (0.60-1.10); GLUCOSE 107 MG/DL (70-104); MICROCYTOSIS 2+; PLATELET ESTIMATE INCREASED; POTASSIUM 3.2 MMOL/L (3.5-5.1); SODIUM 136 MMOL/L (135-145); TOTAL CARBON DIOXIDE 27.4 MMOL/L (24-32); TOTAL CELLS COUNTED 100; TOTAL PROTEIN 5.7 G/DL (6.4-8.2); eGFR > 90 ML/MIN
[2017-12-22 07:29] LABS: HYPOCHROMASIA 1+; POLYCHROMASIA 1+; TARGET CELLS FEW; TOXIC GRANULATION 1+; TOXIC VACUOLATION 1+
[2017-12-22] MEDS: Protein Shake (high protein) 240ml (8oz) cup PO SCH ×3 (08:00→18:11)
[2017-12-22] MEDS ORDERED: sodium ferric gluc complex inj 125 MG in normal saline 100ml IV soln 100 ML IV SCH (08:00)
[2017-12-22] MEDS: K and/or MAG REPLACEMENT MC SCH (08:00)
[2017-12-22] MEDS: vancomycin/NS 1 GM ADD-VANTAGE 250 ML IV SCH (08:10)
[2017-12-22] MEDS: potassium Cl 20 mEq SR tablet PO PRN ×3 (08:10→19:29)
[2017-12-22 10:08] VITALS: BP 112/77
[2017-12-22] MEDS: sodium ferric gluc complex inj 125 MG in normal saline 100ml IV soln 100 ML IV SCH (10:20)
[2017-12-22 18:00] VITALS: BP 112/57
[2017-12-22] MEDS: normal saline 1000ml 1,000 ML IV SCH (19:33)
[2017-12-22 22:00] VITALS: BP 115/68
[2017-12-23] VITALS (13 sets, daily range): BP systolic 110–136; BP diastolic 61–89
[2017-12-23 06:04] LABS: BASOPHILS % (AUTO) 0.2 % (0-1); EOSINOPHILS # (AUTO) 0.2 X10'3 (0-0.9); EOSINOPHILS % (AUTO) 1.5 % (0-6); HEMATOCRIT 23.9 % (42.0-52.0); HEMOGLOBIN 7.7 g/dl (14.0-17.9); LYMPHOCYTES # (AUTO) 1.1 X10'3 (1.1-4.8); MEAN CORPUSCULAR HEMOGLOBIN 25.2 PG (27.0-31.0); MEAN CORPUSCULAR HGB CONC 32.4 % (33.0-36.5); MEAN CORPUSCULAR VOLUME 77.9 FL (78-98); MEAN PLATELET VOLUME 7.1 FL (7.4-10.4); MONOCYTES # (AUTO) 1.8 X10'3 (0-0.9); MONOCYTES % (AUTO) 16.4 % (2-12); NEUTROPHILS % (AUTO) 71.9 % (42-75); PLATELET COUNT 636 X10'3 (140-440); RED BLOOD COUNT 3.07 X10'6 (4.70-6.10); RED CELL DISTRIBUTION WIDTH 21.6 % (11.5-14.5); WHITE BLOOD COUNT 11.1 X10'3 (4.5-11.0)
[2017-12-23 06:18] LABS: ALANINE AMINOTRANSFERASE 36 U/L (12-78); ALBUMIN 1.1 G/DL (3.4-5.0); ALBUMIN/GLOBULIN RATIO 0.3 (1.1-1.5); ALKALINE PHOSPHATASE 137 IU/L (46-116); ANION GAP 7 (8-16); ASPARTATE AMINO TRANSFERASE 51 U/L (10-37); BILIRUBIN,TOTAL 0.2 MG/DL (0.1-1.0); BLOOD UREA NITROGEN 4 MG/DL (7-18); BUN/CREATININE RATIO 6.8 (5.4-32.0); CALCIUM 7.7 MG/DL (8.5-10.1); CHLORIDE 105 MMOL/L (99-107); CREATININE 0.59 MG/DL (0.60-1.10); GLUCOSE 102 MG/DL (70-104); POTASSIUM 3.2 MMOL/L (3.5-5.1); SODIUM 138 MMOL/L (135-145); TOTAL CARBON DIOXIDE 26.4 MMOL/L (24-32); TOTAL PROTEIN 5.3 G/DL (6.4-8.2); eGFR > 90 ML/MIN
[2017-12-23 07:08] LABS: HYPOCHROMASIA 1+; MICROCYTOSIS 2+; PLATELET ESTIMATE INCREASED; POLYCHROMASIA 2+; TARGET CELLS FEW; TOTAL CELLS COUNTED 100; TOXIC GRANULATION 2+; TOXIC VACUOLATION 1+
[2017-12-23] MEDS: K and/or MAG REPLACEMENT MC SCH (07:10)
[2017-12-23] MEDS: potassium Cl 20 mEq SR tablet PO PRN ×3 (07:17→21:07)
[2017-12-23] MEDS: apixaban 5mg tablet PO SCH ×2 (07:17→21:07)
[2017-12-23] MEDS: pantoprazole 40mg Tablet.DR PO SCH (07:17)
[2017-12-23] MEDS: lactobacillus rhamnosus 10,000 MMU CELLS/CAPSULE PO SCH ×2 (07:17→21:07)
[2017-12-23] MEDS: metroNIDAZOLE 500mg tablet PO SCH (07:17)
[2017-12-23] MEDS: gabapentin 300mg capsule PO SCH ×3 (07:17→23:13)
[2017-12-23] MEDS: Protein Shake (high protein) 240ml (8oz) cup PO SCH ×3 (08:14→21:07)
[2017-12-23] MEDS: sodium ferric gluc complex inj 125 MG in normal saline 100ml IV soln 100 ML IV SCH (08:16)
[2017-12-23] MEDS: oxyCODONE/APAP 10/325mg tablet PO PRN (13:13)
[2017-12-23] MEDS: normal saline 1000ml 1,000 ML IV SCH (17:25)
[2017-12-24] MEDS: normal saline 1000ml 1,000 ML IV SCH (02:42)
[2017-12-24 06:00] VITALS: BP 139/86
[2017-12-24 07:22] LABS: BASOPHILS # (AUTO) 0.1 X10'3 (0-0.2); BASOPHILS % (AUTO) 0.7 % (0-1); EOSINOPHILS # (AUTO) 0.2 X10'3 (0-0.9); EOSINOPHILS % (AUTO) 1.3 % (0-6); HEMATOCRIT 30.8 % (42.0-52.0); LYMPHOCYTES # (AUTO) 1.2 X10'3 (1.1-4.8); MEAN CORPUSCULAR HEMOGLOBIN 26.1 PG (27.0-31.0); MEAN CORPUSCULAR HGB CONC 32.4 % (33.0-36.5); MEAN CORPUSCULAR VOLUME 80.5 FL (78-98); MEAN PLATELET VOLUME 6.9 FL (7.4-10.4); MONOCYTES # (AUTO) 1.1 X10'3 (0-0.9); MONOCYTES % (AUTO) 8.7 % (2-12); NEUTROPHILS # (AUTO) 10.3 X10'3 (1.8-7.7); NEUTROPHILS % (AUTO) 80.3 % (42-75); PLATELET COUNT 664 X10'3 (140-440); RED BLOOD COUNT 3.82 X10'6 (4.70-6.10); RED CELL DISTRIBUTION WIDTH 21.8 % (11.5-14.5); WHITE BLOOD COUNT 12.8 X10'3 (4.5-11.0)
[2017-12-24] MEDS: lactobacillus rhamnosus 10,000 MMU CELLS/CAPSULE PO SCH ×2 (07:28→20:31)
[2017-12-24] MEDS: gabapentin 300mg capsule PO SCH ×3 (07:28→23:33)
[2017-12-24] MEDS: pantoprazole 40mg Tablet.DR PO SCH (07:28)
[2017-12-24] MEDS: apixaban 5mg tablet PO SCH ×2 (07:29→20:31)
[2017-12-24 07:45] LABS: ALANINE AMINOTRANSFERASE 49 U/L (12-78); ALBUMIN 1.1 G/DL (3.4-5.0); ALBUMIN/GLOBULIN RATIO 0.2 (1.1-1.5); ALKALINE PHOSPHATASE 220 IU/L (46-116); ANION GAP 7 (8-16); ASPARTATE AMINO TRANSFERASE 62 U/L (10-37); BILIRUBIN,TOTAL 0.3 MG/DL (0.1-1.0); BLOOD UREA NITROGEN 4 MG/DL (7-18); BUN/CREATININE RATIO 5.6 (5.4-32.0); CALCIUM 7.9 MG/DL (8.5-10.1); CHLORIDE 107 MMOL/L (99-107); CREATININE 0.71 MG/DL (0.60-1.10); GLUCOSE 112 MG/DL (70-104); POTASSIUM 3.6 MMOL/L (3.5-5.1); SODIUM 140 MMOL/L (135-145); TOTAL CARBON DIOXIDE 25.8 MMOL/L (24-32); TOTAL PROTEIN 5.7 G/DL (6.4-8.2); eGFR > 90 ML/MIN
[2017-12-24] MEDS: K and/or MAG REPLACEMENT MC SCH (08:00)
[2017-12-24] MEDS: Protein Shake (high protein) 240ml (8oz) cup PO SCH ×3 (08:06→18:43)
[2017-12-24 10:00] VITALS: BP 125/80
[2017-12-24] MEDS: sodium ferric gluc complex inj 125 MG in normal saline 100ml IV soln 100 ML IV SCH (10:23)
[2017-12-24] MEDS: oxyCODONE/APAP 10/325mg tablet PO PRN ×3 (11:27→23:51)
[2017-12-24 18:00] VITALS: BP 135/85
[2017-12-24 18:06] LABS: C-REACTIVE PROTEIN 6.81 MG/DL (0.0-0.5)
[2017-12-24 22:00] VITALS: BP 128/87
[2017-12-25] MEDS: normal saline 1000ml 1,000 ML IV SCH (03:01)
[2017-12-25] MEDS: oxyCODONE/APAP 10/325mg tablet PO PRN ×4 (05:24→19:42)
[2017-12-25 06:00] VITALS: BP 135/87
[2017-12-25] MEDS: K and/or MAG REPLACEMENT MC SCH (07:37)
[2017-12-25] MEDS: pantoprazole 40mg Tablet.DR PO SCH (07:51)
[2017-12-25] MEDS: lactobacillus rhamnosus 10,000 MMU CELLS/CAPSULE PO SCH ×2 (07:52→19:39)
[2017-12-25] MEDS: sodium ferric gluc complex inj 125 MG in normal saline 100ml IV soln 100 ML IV SCH (07:52)
[2017-12-25] MEDS: apixaban 5mg tablet PO SCH ×2 (07:53→19:40)
[2017-12-25] MEDS: gabapentin 300mg capsule PO SCH ×2 (07:54→16:18)
[2017-12-25] MEDS: Protein Shake (high protein) 240ml (8oz) cup PO SCH ×3 (07:58→18:00)
[2017-12-25 09:04] LABS: BASOPHILS % (AUTO) 0.2 % (0-1); EOSINOPHILS # (AUTO) 0.3 X10'3 (0-0.9); EOSINOPHILS % (AUTO) 1.6 % (0-6); HEMATOCRIT 30.8 % (42.0-52.0); HEMOGLOBIN 9.8 g/dl (14.0-17.9); LYMPHOCYTES # (AUTO) 1.6 X10'3 (1.1-4.8); LYMPHOCYTES % (AUTO) 10.5 % (21-51); MEAN CORPUSCULAR HEMOGLOBIN 26.1 PG (27.0-31.0); MEAN CORPUSCULAR HGB CONC 31.9 % (33.0-36.5); MEAN CORPUSCULAR VOLUME 81.9 FL (78-98); MONOCYTES # (AUTO) 1.5 X10'3 (0-0.9); MONOCYTES % (AUTO) 9.8 % (2-12); NEUTROPHILS # (AUTO) 12.1 X10'3 (1.8-7.7); NEUTROPHILS % (AUTO) 77.9 % (42-75); PLATELET COUNT 708 X10'3 (140-440); RED BLOOD COUNT 3.75 X10'6 (4.70-6.10); RED CELL DISTRIBUTION WIDTH 22.3 % (11.5-14.5); WHITE BLOOD COUNT 15.5 X10'3 (4.5-11.0)
[2017-12-25 09:10] LABS: ALBUMIN 1.3 G/DL (3.4-5.0); ANION GAP 6 (8-16); BLOOD UREA NITROGEN 7 MG/DL (7-18); BUN/CREATININE RATIO 9.7 (5.4-32.0); CALCIUM 8.3 MG/DL (8.5-10.1); CHLORIDE 103 MMOL/L (99-107); CREATININE 0.72 MG/DL (0.60-1.10); GLUCOSE 125 MG/DL (70-104); SODIUM 136 MMOL/L (135-145); TOTAL CARBON DIOXIDE 27.3 MMOL/L (24-32); eGFR > 90 ML/MIN
[2017-12-25 10:00] VITALS: BP 130/81
[2017-12-25 10:00] LABS: C-REACTIVE PROTEIN 3.02 MG/DL (0.0-0.5)
[2017-12-25 18:00] VITALS: BP 113/63
[2017-12-25 22:00] VITALS: BP 125/74
[2017-12-26] MEDS: oxyCODONE/APAP 10/325mg tablet PO PRN ×5 (01:36→16:51)
[2017-12-26] MEDS: normal saline 1000ml 1,000 ML IV SCH (03:37)
[2017-12-26 05:50] LABS: BASOPHILS # (AUTO) 0.1 X10'3 (0-0.2); BASOPHILS % (AUTO) 0.4 % (0-1); EOSINOPHILS # (AUTO) 0.2 X10'3 (0-0.9); EOSINOPHILS % (AUTO) 1.6 % (0-6); HEMATOCRIT 30.3 % (42.0-52.0); HEMOGLOBIN 9.9 g/dl (14.0-17.9); LYMPHOCYTES # (AUTO) 1.7 X10'3 (1.1-4.8); MEAN CORPUSCULAR HEMOGLOBIN 26.9 PG (27.0-31.0); MEAN CORPUSCULAR HGB CONC 32.7 % (33.0-36.5); MEAN CORPUSCULAR VOLUME 82.4 FL (78-98); MEAN PLATELET VOLUME 7.3 FL (7.4-10.4); MONOCYTES # (AUTO) 1.4 X10'3 (0-0.9); MONOCYTES % (AUTO) 8.9 % (2-12); NEUTROPHILS # (AUTO) 12.2 X10'3 (1.8-7.7); NEUTROPHILS % (AUTO) 78.1 % (42-75); PLATELET COUNT 757 X10'3 (140-440); RED BLOOD COUNT 3.68 X10'6 (4.70-6.10); RED CELL DISTRIBUTION WIDTH 23.5 % (11.5-14.5); WHITE BLOOD COUNT 15.6 X10'3 (4.5-11.0)
[2017-12-26 06:00] VITALS: BP 114/70
[2017-12-26 06:21] LABS: ALBUMIN 1.3 G/DL (3.4-5.0); ANION GAP 7 (8-16); BLOOD UREA NITROGEN 8 MG/DL (7-18); BUN/CREATININE RATIO 10.8 (5.4-32.0); CALCIUM 8.3 MG/DL (8.5-10.1); CHLORIDE 100 MMOL/L (99-107); CREATININE 0.74 MG/DL (0.60-1.10); GLUCOSE 91 MG/DL (70-104); MAGNESIUM 2.1 MG/DL (1.5-2.4); PHOSPHORUS 4.3 MG/DL (2.3-4.5); POTASSIUM 4.1 MMOL/L (3.5-5.1); SODIUM 134 MMOL/L (135-145); TOTAL CARBON DIOXIDE 27.3 MMOL/L (24-32); eGFR > 90 ML/MIN
[2017-12-26] MEDS: K and/or MAG REPLACEMENT MC SCH (07:14)
[2017-12-26 07:18] LABS: PLATELET ESTIMATE INCREASED
[2017-12-26 07:19] LABS: ANISOCYTOSIS 3+
[2017-12-26] MEDS: pantoprazole 40mg Tablet.DR PO SCH (07:24)
[2017-12-26] MEDS: lactobacillus rhamnosus 10,000 MMU CELLS/CAPSULE PO SCH ×2 (07:25→20:01)
[2017-12-26] MEDS: apixaban 5mg tablet PO SCH ×2 (07:25→20:01)
[2017-12-26] MEDS: gabapentin 300mg capsule PO SCH ×3 (07:26→16:00)
[2017-12-26] MEDS: Protein Shake (high protein) 240ml (8oz) cup PO SCH ×3 (08:50→18:00)
[2017-12-26] MEDS: sodium ferric gluc complex inj 125 MG in normal saline 100ml IV soln 100 ML IV SCH (09:08)
[2017-12-26 10:00] VITALS: BP 115/72
[2017-12-26 18:00] VITALS: BP 105/68
[2017-12-26 22:00] VITALS: BP 120/72
[2017-12-27] MEDS: normal saline 1000ml 1,000 ML IV SCH (00:34)
[2017-12-27] MEDS: oxyCODONE/APAP 10/325mg tablet PO PRN ×5 (00:35→21:39)
[2017-12-27 05:00] VITALS: BP 96/57
[2017-12-27 06:24] LABS: BASOPHILS # (AUTO) 0.1 X10'3 (0-0.2); BASOPHILS % (AUTO) 0.6 % (0-1); EOSINOPHILS # (AUTO) 0.3 X10'3 (0-0.9); EOSINOPHILS % (AUTO) 1.9 % (0-6); HEMATOCRIT 32.5 % (42.0-52.0); HEMOGLOBIN 10.6 g/dl (14.0-17.9); LYMPHOCYTES # (AUTO) 1.7 X10'3 (1.1-4.8); LYMPHOCYTES % (AUTO) 10.9 % (21-51); MEAN CORPUSCULAR HGB CONC 32.4 % (33.0-36.5); MEAN CORPUSCULAR VOLUME 83.2 FL (78-98); MEAN PLATELET VOLUME 7.4 FL (7.4-10.4); MONOCYTES # (AUTO) 1.1 X10'3 (0-0.9); NEUTROPHILS # (AUTO) 12.6 X10'3 (1.8-7.7); NEUTROPHILS % (AUTO) 79.6 % (42-75); PLATELET COUNT 784 X10'3 (140-440); RED BLOOD COUNT 3.91 X10'6 (4.70-6.10); RED CELL DISTRIBUTION WIDTH 24.9 % (11.5-14.5); WHITE BLOOD COUNT 15.9 X10'3 (4.5-11.0)
[2017-12-27 06:36] LABS: ALBUMIN 1.5 G/DL (3.4-5.0); ANION GAP 8 (8-16); BLOOD UREA NITROGEN 12 MG/DL (7-18); BUN/CREATININE RATIO 15.6 (5.4-32.0); CHLORIDE 100 MMOL/L (99-107); CREATININE 0.77 MG/DL (0.60-1.10); GLUCOSE 109 MG/DL (70-104); MAGNESIUM 2.4 MG/DL (1.5-2.4); PHOSPHORUS 4.6 MG/DL (2.3-4.5); POTASSIUM 4.3 MMOL/L (3.5-5.1); SODIUM 135 MMOL/L (135-145); TOTAL CARBON DIOXIDE 27.5 MMOL/L (24-32); eGFR > 90 ML/MIN
[2017-12-27 06:44] LABS: ANISOCYTOSIS 3+; HYPOCHROMASIA 1+; PLATELET ESTIMATE INCREASED; POLYCHROMASIA 1+
[2017-12-27] MEDS: pantoprazole 40mg Tablet.DR PO SCH (07:12)
[2017-12-27] MEDS: apixaban 5mg tablet PO SCH ×2 (07:12→21:35)
[2017-12-27] MEDS: lactobacillus rhamnosus 10,000 MMU CELLS/CAPSULE PO SCH ×2 (07:12→21:35)
[2017-12-27] MEDS: gabapentin 300mg capsule PO SCH ×3 (07:13→16:23)
[2017-12-27] MEDS: K and/or MAG REPLACEMENT MC SCH (08:00)
[2017-12-27] MEDS: Protein Shake (high protein) 240ml (8oz) cup PO SCH ×3 (08:00→18:00)
[2017-12-27] MEDS: sodium ferric gluc complex inj 125 MG in normal saline 100ml IV soln 100 ML IV SCH (09:26)
[2017-12-27 10:00] VITALS: BP 112/65
[2017-12-27] MEDS: vancomycin/NS 1 GM ADD-VANTAGE 250 ML IV SCH ×2 (10:50→16:23)
[2017-12-27 18:00] VITALS: BP 114/82
[2017-12-27 22:00] VITALS: BP 114/74
[2017-12-28] MEDS: normal saline 1000ml 1,000 ML IV SCH (00:04)
[2017-12-28] MEDS: vancomycin/NS 1 GM ADD-VANTAGE 250 ML IV SCH ×3 (00:04→15:33)
[2017-12-28] MEDS: gabapentin 300mg capsule PO SCH ×2 (00:04→08:12)
[2017-12-28] MEDS: oxyCODONE/APAP 10/325mg tablet PO PRN ×4 (05:15→21:53)
[2017-12-28 06:00] VITALS: BP 108/74
[2017-12-28 06:03] LABS: BASOPHILS # (AUTO) 0.1 X10'3 (0-0.2); BASOPHILS % (AUTO) 0.7 % (0-1); EOSINOPHILS # (AUTO) 0.3 X10'3 (0-0.9); EOSINOPHILS % (AUTO) 2.2 % (0-6); HEMATOCRIT 27.8 % (42.0-52.0); LYMPHOCYTES # (AUTO) 1.4 X10'3 (1.1-4.8); MEAN CORPUSCULAR HEMOGLOBIN 26.9 PG (27.0-31.0); MEAN CORPUSCULAR HGB CONC 32.5 % (33.0-36.5); MEAN CORPUSCULAR VOLUME 82.8 FL (78-98); MEAN PLATELET VOLUME 7.1 FL (7.4-10.4); MONOCYTES # (AUTO) 0.9 X10'3 (0-0.9); MONOCYTES % (AUTO) 7.2 % (2-12); NEUTROPHILS # (AUTO) 9.9 X10'3 (1.8-7.7); NEUTROPHILS % (AUTO) 78.9 % (42-75); PLATELET COUNT 855 X10'3 (140-440); RED BLOOD COUNT 3.35 X10'6 (4.70-6.10); RED CELL DISTRIBUTION WIDTH 25.4 % (11.5-14.5); WHITE BLOOD COUNT 12.6 X10'3 (4.5-11.0)
[2017-12-28 06:55] LABS: ALANINE AMINOTRANSFERASE 30 U/L (12-78); ALBUMIN 1.4 G/DL (3.4-5.0); ALBUMIN/GLOBULIN RATIO 0.3 (1.1-1.5); ALKALINE PHOSPHATASE 208 IU/L (46-116); ANION GAP 8 (8-16); ASPARTATE AMINO TRANSFERASE 28 U/L (10-37); BILIRUBIN,TOTAL 0.2 MG/DL (0.1-1.0); BLOOD UREA NITROGEN 9 MG/DL (7-18); BUN/CREATININE RATIO 12.7 (5.4-32.0); CALCIUM 8.4 MG/DL (8.5-10.1); CHLORIDE 102 MMOL/L (99-107); CREATININE 0.71 MG/DL (0.60-1.10); GLUCOSE 111 MG/DL (70-104); MAGNESIUM 2.3 MG/DL (1.5-2.4); PHOSPHORUS 3.7 MG/DL (2.3-4.5); POTASSIUM 4.4 MMOL/L (3.5-5.1); SODIUM 136 MMOL/L (135-145); TOTAL CARBON DIOXIDE 26.5 MMOL/L (24-32); TOTAL PROTEIN 6.2 G/DL (6.4-8.2); eGFR > 90 ML/MIN
[2017-12-28 06:59] LABS: ANISOCYTOSIS 3+; HYPOCHROMASIA 1+; PLATELET ESTIMATE INCREASED; POLYCHROMASIA 1+; TARGET CELLS FEW
[2017-12-28] MEDS: K and/or MAG REPLACEMENT MC SCH (08:00)
[2017-12-28] MEDS: lactobacillus rhamnosus 10,000 MMU CELLS/CAPSULE PO SCH ×2 (08:11→21:52)
[2017-12-28] MEDS: pantoprazole 40mg Tablet.DR PO SCH (08:11)
[2017-12-28] MEDS: apixaban 5mg tablet PO SCH ×2 (08:11→21:52)
[2017-12-28] MEDS: Protein Shake (high protein) 240ml (8oz) cup PO SCH ×3 (08:11→21:54)
[2017-12-28] MEDS: sodium ferric gluc complex inj 125 MG in normal saline 100ml IV soln 100 ML IV SCH (09:59)
[2017-12-28 10:00] VITALS: BP 133/83
[2017-12-28] MEDS ORDERED: cyclobenzaprine 10mg tablet PO PRN (14:35)
[2017-12-28] MEDS: gabapentin 400mg capsule PO SCH ×2 (14:53→21:52)
[2017-12-28] MEDS ORDERED: VANCOMYCIN LEVEL IV ONE (15:30)
[2017-12-28 18:00] VITALS: BP 114/97
[2017-12-28 22:00] VITALS: BP 114/68
[2017-12-29] MEDS: vancomycin inj 1,250 MG in normal saline 250ml IV soln 250 ML IV SCH ×3 (00:22→15:36)
[2017-12-29] MEDS: normal saline 1000ml 1,000 ML IV SCH (02:01)
[2017-12-29] MEDS: oxyCODONE/APAP 10/325mg tablet PO PRN ×3 (05:19→21:03)
[2017-12-29 06:00] VITALS: BP 116/68
[2017-12-29 06:02] LABS: BASOPHILS # (AUTO) 0.1 X10'3 (0-0.2); BASOPHILS % (AUTO) 0.7 % (0-1); EOSINOPHILS # (AUTO) 0.3 X10'3 (0-0.9); EOSINOPHILS % (AUTO) 2.3 % (0-6); HEMATOCRIT 31.2 % (42.0-52.0); HEMOGLOBIN 10.1 g/dl (14.0-17.9); LYMPHOCYTES # (AUTO) 1.8 X10'3 (1.1-4.8); LYMPHOCYTES % (AUTO) 14.4 % (21-51); MEAN CORPUSCULAR HEMOGLOBIN 26.9 PG (27.0-31.0); MEAN CORPUSCULAR HGB CONC 32.5 % (33.0-36.5); MEAN CORPUSCULAR VOLUME 82.8 FL (78-98); MEAN PLATELET VOLUME 7.2 FL (7.4-10.4); MONOCYTES # (AUTO) 1.1 X10'3 (0-0.9); MONOCYTES % (AUTO) 8.4 % (2-12); NEUTROPHILS # (AUTO) 9.5 X10'3 (1.8-7.7); NEUTROPHILS % (AUTO) 74.2 % (42-75); RED BLOOD COUNT 3.76 X10'6 (4.70-6.10); RED CELL DISTRIBUTION WIDTH 25.8 % (11.5-14.5); WHITE BLOOD COUNT 12.8 X10'3 (4.5-11.0)
[2017-12-29 06:30] LABS: PLATELET COUNT 1064 X10'3 (140-440)
[2017-12-29 06:36] LABS: ALANINE AMINOTRANSFERASE 37 U/L (12-78); ALBUMIN 1.7 G/DL (3.4-5.0); ALBUMIN/GLOBULIN RATIO 0.3 (1.1-1.5); ALKALINE PHOSPHATASE 274 IU/L (46-116); ANION GAP 7 (8-16); ASPARTATE AMINO TRANSFERASE 32 U/L (10-37); BILIRUBIN,TOTAL 0.2 MG/DL (0.1-1.0); BLOOD UREA NITROGEN 12 MG/DL (7-18); BUN/CREATININE RATIO 14.1 (5.4-32.0); CALCIUM 8.8 MG/DL (8.5-10.1); CHLORIDE 101 MMOL/L (99-107); CREATININE 0.85 MG/DL (0.60-1.10); GLUCOSE 112 MG/DL (70-104); MAGNESIUM 2.3 MG/DL (1.5-2.4); PHOSPHORUS 4.3 MG/DL (2.3-4.5); POTASSIUM 4.2 MMOL/L (3.5-5.1); SODIUM 136 MMOL/L (135-145); TOTAL PROTEIN 7.2 G/DL (6.4-8.2); eGFR > 90 ML/MIN
[2017-12-29] MEDS: apixaban 5mg tablet PO SCH ×2 (07:09→21:01)
[2017-12-29] MEDS: lactobacillus rhamnosus 10,000 MMU CELLS/CAPSULE PO SCH ×2 (07:09→21:02)
[2017-12-29] MEDS: pantoprazole 40mg Tablet.DR PO SCH (07:09)
[2017-12-29] MEDS: gabapentin 300mg capsule PO SCH (07:10)
[2017-12-29] MEDS: K and/or MAG REPLACEMENT MC SCH (07:15)
[2017-12-29] MEDS: Protein Shake (high protein) 240ml (8oz) cup PO SCH ×4 (08:06→21:02)
[2017-12-29 08:16] LABS: ANISOCYTOSIS 3+; PLATELET ESTIMATE INCREASED; TOTAL CELLS COUNTED 100
[2017-12-29 08:17] LABS: GIANT PLATELET FEW; HYPOCHROMASIA 1+; LARGE PLATELETS FEW; POLYCHROMASIA FEW; SCHISTOCYTES FEW; TARGET CELLS FEW; TOXIC GRANULATION 1+
[2017-12-29] MEDS: doxycycline hyclate 100mg tablet.DR PO SCH ×2 (09:53→18:29)
[2017-12-29 10:00] VITALS: BP 104/59
[2017-12-29] MEDS ORDERED: aspirin 325mg tablet PO ONE (10:20)
[2017-12-29] MEDS: gabapentin 400mg capsule PO SCH ×2 (12:32→21:07)
[2017-12-29 18:00] VITALS: BP 129/81
[2017-12-29 22:00] VITALS: BP 113/66
[2017-12-29] MEDS ORDERED: VANCOMYCIN LEVEL IV ONE (23:30)
[2017-12-30] MEDS: vancomycin inj 1,250 MG in normal saline 250ml IV soln 250 ML IV SCH (01:15)
[2017-12-30] MEDS: normal saline 1000ml 1,000 ML IV SCH ×2 (01:16→19:34)
[2017-12-30 06:00] VITALS: BP 106/69
[2017-12-30 06:47] LABS: BASOPHILS % (AUTO) 0.4 % (0-1); EOSINOPHILS # (AUTO) 0.1 X10'3 (0-0.9); EOSINOPHILS % (AUTO) 0.6 % (0-6); HEMATOCRIT 29.1 % (42.0-52.0); HEMOGLOBIN 9.6 g/dl (14.0-17.9); LYMPHOCYTES # (AUTO) 0.9 X10'3 (1.1-4.8); LYMPHOCYTES % (AUTO) 9.3 % (21-51); MEAN CORPUSCULAR HEMOGLOBIN 27.1 PG (27.0-31.0); MEAN CORPUSCULAR HGB CONC 32.8 % (33.0-36.5); MEAN CORPUSCULAR VOLUME 82.8 FL (78-98); MEAN PLATELET VOLUME 7.2 FL (7.4-10.4); MONOCYTES # (AUTO) 0.5 X10'3 (0-0.9); MONOCYTES % (AUTO) 5.4 % (2-12); NEUTROPHILS % (AUTO) 84.3 % (42-75); RED BLOOD COUNT 3.52 X10'6 (4.70-6.10); RED CELL DISTRIBUTION WIDTH 25.2 % (11.5-14.5); WHITE BLOOD COUNT 9.5 X10'3 (4.5-11.0)
[2017-12-30 07:00] LABS: PLATELET COUNT 1034 X10'3 (140-440)
[2017-12-30 07:03] LABS: ALANINE AMINOTRANSFERASE 38 U/L (12-78); ALBUMIN 1.5 G/DL (3.4-5.0); ALBUMIN/GLOBULIN RATIO 0.3 (1.1-1.5); ALKALINE PHOSPHATASE 353 IU/L (46-116); ANION GAP 8 (8-16); ASPARTATE AMINO TRANSFERASE 28 U/L (10-37); BILIRUBIN,TOTAL 0.2 MG/DL (0.1-1.0); BLOOD UREA NITROGEN 11 MG/DL (7-18); BUN/CREATININE RATIO 15.1 (5.4-32.0); CALCIUM 8.1 MG/DL (8.5-10.1); CHLORIDE 102 MMOL/L (99-107); CREATININE 0.73 MG/DL (0.60-1.10); GLUCOSE 110 MG/DL (70-104); MAGNESIUM 1.9 MG/DL (1.5-2.4); PHOSPHORUS 3.3 MG/DL (2.3-4.5); POTASSIUM 3.6 MMOL/L (3.5-5.1); SODIUM 135 MMOL/L (135-145); TOTAL CARBON DIOXIDE 24.8 MMOL/L (24-32); TOTAL PROTEIN 6.2 G/DL (6.4-8.2); eGFR > 90 ML/MIN
[2017-12-30 07:19] LABS: TOTAL CELLS COUNTED 100
[2017-12-30 07:21] LABS: ANISOCYTOSIS 3+; HYPOCHROMASIA 1+; PLATELET ESTIMATE INCREASED; POLYCHROMASIA 2+; TARGET CELLS FEW; TOXIC GRANULATION 1+
[2017-12-30 07:22] LABS: LARGE PLATELETS FEW; ROULEAUX 1+
[2017-12-30] MEDS: K and/or MAG REPLACEMENT MC SCH (08:00)
[2017-12-30] MEDS: gabapentin 300mg capsule PO SCH (08:00)
[2017-12-30] MEDS: lactobacillus rhamnosus 10,000 MMU CELLS/CAPSULE PO SCH ×2 (08:05→19:38)
[2017-12-30] MEDS: doxycycline hyclate 100mg tablet.DR PO SCH (08:06)
[2017-12-30] MEDS: apixaban 5mg tablet PO SCH ×2 (08:06→19:38)
[2017-12-30] MEDS: pantoprazole 40mg Tablet.DR PO SCH (08:06)
[2017-12-30] MEDS: Protein Shake (high protein) 240ml (8oz) cup PO SCH ×3 (08:07→18:00)
[2017-12-30] MEDS ORDERED: aspirin 325mg tablet PO SCH (08:30)
[2017-12-30] MEDS: aspirin 81mg tablet.DR PO SCH (08:40)
[2017-12-30 10:00] VITALS: BP 127/78
[2017-12-30] MEDS: gabapentin 400mg capsule PO SCH ×2 (12:14→19:38)
[2017-12-30 18:00] VITALS: BP 120/76
[2017-12-30] MEDS: oxyCODONE/APAP 10/325mg tablet PO PRN (19:38)
[2017-12-30 22:00] VITALS: BP 116/74
[2017-12-31] MEDS: oxyCODONE/APAP 10/325mg tablet PO PRN ×5 (00:11→23:49)
[2017-12-31] MEDS: normal saline 1000ml 1,000 ML IV SCH ×2 (05:08→23:33)
[2017-12-31 06:00] VITALS: BP 104/66
[2017-12-31] MEDS ORDERED: VANCOMYCIN LEVEL IV NR (07:30)
[2017-12-31] MEDS: doxycycline hyclate 100mg tablet.DR PO SCH ×2 (07:35→17:31)
[2017-12-31] MEDS: aspirin 81mg tablet.DR PO SCH (07:36)
[2017-12-31] MEDS: apixaban 5mg tablet PO SCH ×2 (07:36→19:30)
[2017-12-31] MEDS: lactobacillus rhamnosus 10,000 MMU CELLS/CAPSULE PO SCH ×2 (07:36→19:30)
[2017-12-31] MEDS: gabapentin 300mg capsule PO SCH (07:36)
[2017-12-31] MEDS: pantoprazole 40mg Tablet.DR PO SCH (07:36)
[2017-12-31] MEDS: K and/or MAG REPLACEMENT MC SCH (07:39)
[2017-12-31 08:10] LABS: BASOPHILS % (AUTO) 0.4 % (0-1); EOSINOPHILS # (AUTO) 0.2 X10'3 (0-0.9); EOSINOPHILS % (AUTO) 1.8 % (0-6); HEMATOCRIT 30.1 % (42.0-52.0); HEMOGLOBIN 9.6 g/dl (14.0-17.9); LYMPHOCYTES # (AUTO) 1.3 X10'3 (1.1-4.8); LYMPHOCYTES % (AUTO) 13.2 % (21-51); MEAN CORPUSCULAR VOLUME 84.4 FL (78-98); MEAN PLATELET VOLUME 6.9 FL (7.4-10.4); MONOCYTES # (AUTO) 0.7 X10'3 (0-0.9); MONOCYTES % (AUTO) 7.3 % (2-12); NEUTROPHILS # (AUTO) 7.8 X10'3 (1.8-7.7); NEUTROPHILS % (AUTO) 77.3 % (42-75); RED BLOOD COUNT 3.57 X10'6 (4.70-6.10); RED CELL DISTRIBUTION WIDTH 25.4 % (11.5-14.5); WHITE BLOOD COUNT 10.1 X10'3 (4.5-11.0)
[2017-12-31 08:12] LABS: PLATELET COUNT 1177 X10'3 (140-440)
[2017-12-31] MEDS: Protein Shake (high protein) 240ml (8oz) cup PO SCH ×3 (08:23→18:00)
[2017-12-31 08:26] LABS: ANISOCYTOSIS 3+; MICROCYTOSIS 1+; PLATELET ESTIMATE INCREASED
[2017-12-31 08:27] LABS: POIKILOCYTOSIS FEW; POLYCHROMASIA 1+
[2017-12-31 08:34] LABS: ALANINE AMINOTRANSFERASE 45 U/L (12-78); ALBUMIN 1.7 G/DL (3.4-5.0); ALBUMIN/GLOBULIN RATIO 0.3 (1.1-1.5); ALKALINE PHOSPHATASE 292 IU/L (46-116); ANION GAP 8 (8-16); ASPARTATE AMINO TRANSFERASE 33 U/L (10-37); BILIRUBIN,TOTAL 0.2 MG/DL (0.1-1.0); BLOOD UREA NITROGEN 10 MG/DL (7-18); BUN/CREATININE RATIO 13.7 (5.4-32.0); CALCIUM 8.9 MG/DL (8.5-10.1); CHLORIDE 103 MMOL/L (99-107); CREATININE 0.73 MG/DL (0.60-1.10); GLUCOSE 105 MG/DL (70-104); MAGNESIUM 1.9 MG/DL (1.5-2.4); PHOSPHORUS 4.2 MG/DL (2.3-4.5); POTASSIUM 3.9 MMOL/L (3.5-5.1); SODIUM 137 MMOL/L (135-145); TOTAL CARBON DIOXIDE 26.4 MMOL/L (24-32); TOTAL PROTEIN 6.6 G/DL (6.4-8.2); eGFR > 90 ML/MIN
[2017-12-31 11:41] VITALS: BP 102/67
[2017-12-31] MEDS: gabapentin 400mg capsule PO SCH ×2 (13:17→19:30)
[2017-12-31 19:00] VITALS: BP 126/81
[2017-12-31 22:30] VITALS: BP 120/70
[2018-01-01] MEDS: oxyCODONE/APAP 10/325mg tablet PO PRN ×3 (05:58→22:18)
[2018-01-01 06:00] VITALS: BP 120/70
[2018-01-01 07:03] LABS: BASOPHILS # (AUTO) 0.1 X10'3 (0-0.2); BASOPHILS % (AUTO) 0.8 % (0-1); EOSINOPHILS # (AUTO) 0.3 X10'3 (0-0.9); HEMATOCRIT 28.8 % (42.0-52.0); HEMOGLOBIN 9.3 g/dl (14.0-17.9); LYMPHOCYTES # (AUTO) 1.6 X10'3 (1.1-4.8); MEAN CORPUSCULAR HGB CONC 32.1 % (33.0-36.5); MEAN CORPUSCULAR VOLUME 84.2 FL (78-98); MONOCYTES # (AUTO) 0.8 X10'3 (0-0.9); NEUTROPHILS # (AUTO) 6.4 X10'3 (1.8-7.7); NEUTROPHILS % (AUTO) 70.2 % (42-75); RED BLOOD COUNT 3.42 X10'6 (4.70-6.10); RED CELL DISTRIBUTION WIDTH 25.3 % (11.5-14.5); WHITE BLOOD COUNT 9.2 X10'3 (4.5-11.0)
[2018-01-01 07:04] VITALS: BP 120/70
[2018-01-01 07:11] LABS: PLATELET COUNT 1125 X10'3 (140-440)
[2018-01-01 07:21] LABS: ALANINE AMINOTRANSFERASE 44 U/L (12-78); ALBUMIN 1.8 G/DL (3.4-5.0); ALBUMIN/GLOBULIN RATIO 0.4 (1.1-1.5); ALKALINE PHOSPHATASE 282 IU/L (46-116); ANION GAP 9 (8-16); ASPARTATE AMINO TRANSFERASE 35 U/L (10-37); BILIRUBIN,TOTAL 0.2 MG/DL (0.1-1.0); BLOOD UREA NITROGEN 9 MG/DL (7-18); BUN/CREATININE RATIO 14.3 (5.4-32.0); CALCIUM 8.9 MG/DL (8.5-10.1); CHLORIDE 102 MMOL/L (99-107); CREATININE 0.63 MG/DL (0.60-1.10); GLUCOSE 94 MG/DL (70-104); MAGNESIUM 1.8 MG/DL (1.5-2.4); PHOSPHORUS 4.8 MG/DL (2.3-4.5); SODIUM 138 MMOL/L (135-145); TOTAL CARBON DIOXIDE 27.5 MMOL/L (24-32); TOTAL PROTEIN 6.7 G/DL (6.4-8.2); eGFR > 90 ML/MIN
[2018-01-01 07:45] LABS: ANISOCYTOSIS 3+; PLATELET ESTIMATE INCREASED; POLYCHROMASIA 1+
[2018-01-01 07:46] LABS: TARGET CELLS FEW
[2018-01-01] MEDS: K and/or MAG REPLACEMENT MC SCH (08:00)
[2018-01-01] MEDS: gabapentin 300mg capsule PO SCH (08:56)
[2018-01-01] MEDS: lactobacillus rhamnosus 10,000 MMU CELLS/CAPSULE PO SCH ×2 (08:56→19:40)
[2018-01-01] MEDS: apixaban 5mg tablet PO SCH ×2 (08:56→19:40)
[2018-01-01] MEDS: aspirin 81mg tablet.DR PO SCH (08:56)
[2018-01-01] MEDS: Protein Shake (high protein) 240ml (8oz) cup PO SCH ×3 (08:57→19:42)
[2018-01-01] MEDS: pantoprazole 40mg Tablet.DR PO SCH (09:06)
[2018-01-01] MEDS: doxycycline hyclate 100mg tablet.DR PO SCH ×2 (09:07→19:40)
[2018-01-01 10:00] VITALS: BP 107/63
[2018-01-01] MEDS: normal saline 1000ml 1,000 ML IV SCH (13:53)
[2018-01-01] MEDS: gabapentin 400mg capsule PO SCH ×2 (13:53→19:40)
[2018-01-01 18:30] VITALS: BP 125/82
[2018-01-01 22:00] VITALS: BP 117/72
[2018-01-02] MEDS: oxyCODONE/APAP 10/325mg tablet PO PRN ×3 (04:50→14:03)
[2018-01-02 06:00] VITALS: BP 109/72
[2018-01-02 07:10] LABS: BASOPHILS # (AUTO) 0.1 X10'3 (0-0.2); BASOPHILS % (AUTO) 0.6 % (0-1); EOSINOPHILS # (AUTO) 0.3 X10'3 (0-0.9); EOSINOPHILS % (AUTO) 3.1 % (0-6); HEMOGLOBIN 10.1 g/dl (14.0-17.9); LYMPHOCYTES # (AUTO) 1.5 X10'3 (1.1-4.8); LYMPHOCYTES % (AUTO) 14.9 % (21-51); MEAN CORPUSCULAR HEMOGLOBIN 27.5 PG (27.0-31.0); MEAN CORPUSCULAR HGB CONC 32.5 % (33.0-36.5); MEAN CORPUSCULAR VOLUME 84.5 FL (78-98); MEAN PLATELET VOLUME 6.9 FL (7.4-10.4); MONOCYTES # (AUTO) 0.8 X10'3 (0-0.9); MONOCYTES % (AUTO) 7.8 % (2-12); NEUTROPHILS # (AUTO) 7.4 X10'3 (1.8-7.7); NEUTROPHILS % (AUTO) 73.6 % (42-75); RED BLOOD COUNT 3.67 X10'6 (4.70-6.10); RED CELL DISTRIBUTION WIDTH 25.4 % (11.5-14.5); WHITE BLOOD COUNT 10.1 X10'3 (4.5-11.0)
[2018-01-02 07:12] LABS: PLATELET COUNT 1204 X10'3 (140-440)
[2018-01-02 07:27] LABS: ANISOCYTOSIS 3+; PLATELET ESTIMATE INCREASED; POLYCHROMASIA 1+; TARGET CELLS FEW
[2018-01-02] MEDS ORDERED: VANCOMYCIN LEVEL IV NR (07:30)
[2018-01-02] MEDS: K and/or MAG REPLACEMENT MC SCH (08:00)
[2018-01-02] MEDS: doxycycline hyclate 100mg tablet.DR PO SCH (09:53)
[2018-01-02] MEDS: lactobacillus rhamnosus 10,000 MMU CELLS/CAPSULE PO SCH (09:53)
[2018-01-02] MEDS: pantoprazole 40mg Tablet.DR PO SCH (09:53)
[2018-01-02] MEDS: gabapentin 300mg capsule PO SCH (09:53)
[2018-01-02] MEDS: apixaban 5mg tablet PO SCH (09:53)
[2018-01-02] MEDS: aspirin 81mg tablet.DR PO SCH (09:53)
[2018-01-02] MEDS: Protein Shake (high protein) 240ml (8oz) cup PO SCH ×2 (09:54→14:03)
[2018-01-02 10:00] VITALS: BP 106/67
[2018-01-02] MEDS ORDERED: PANT40TA4 PO (12:31)
[2018-01-02] MEDS ORDERED: DOXY-200 PO (12:31)
[2018-01-02] MEDS ORDERED: GABA300C PO (12:31)
[2018-01-02] MEDS ORDERED: GABA-534 PO (12:31)
[2018-01-02] MEDS ORDERED: LACT1CAP26 PO (12:31)
[2018-01-02] MEDS ORDERED: ASPI-1071 PO (12:31)
[2018-01-02] MEDS ORDERED: APIX5TAB3 PO (12:31)
[2018-01-02] MEDS: gabapentin 400mg capsule PO SCH (14:03)
== END 2018-01-02 17:10 | disposition home health service (06) | DRG 240 ==
LOC: ER 12:47 → ED HOLD 17:06 → ICU 2S 20:13 → SUR 3N 12-18 15:15 → ORTHO 4S 12-20 17:00
PROVIDERS: ADMIT Family Medicine; ATTEND Family Medicine
PROC: B32T1ZZ Computerized Tomography (CT Scan) of Left Pulmonary Artery using Low Osmolar Contrast (ICD-10-PCS; 2017-12-15)
PROC: B3201ZZ Computerized Tomography (CT Scan) of Thoracic Aorta using Low Osmolar Contrast (ICD-10-PCS; 2017-12-15)
PROC: B32S1ZZ Computerized Tomography (CT Scan) of Right Pulmonary Artery using Low Osmolar Contrast (ICD-10-PCS; 2017-12-15)
PROC: 06U Lower Veins, Supplement (ICD-10-PCS; 2017-12-16)
PROC: 04CU0ZZ Extirpation of Matter from Left Peroneal Artery, Open Approach (ICD-10-PCS; 2017-12-16)
PROC: 06BQ0ZZ Excision of Left Saphenous Vein, Open Approach (ICD-10-PCS; 2017-12-16)
PROC: 30233N1 Transfusion of Nonautologous Red Blood Cells into Peripheral Vein, Percutaneous Approach (ICD-10-PCS; 2017-12-16)
PROC: 04CS0ZZ Extirpation of Matter from Left Posterior Tibial Artery, Open Approach (ICD-10-PCS; principal; 2017-12-16 13:28)
PROC: 0Y6J0Z1 Detachment at Left Lower Leg, High, Open Approach (ICD-10-PCS; 2017-12-20)
DX: I82.402 Acute embolism and thrombosis of unspecified deep veins of left lower extremity (principal); D68.59 Other primary thrombophilia; R65.10 Systemic inflammatory response syndrome (SIRS) of non-infectious origin without acute organ dysfunction; K51.90 Ulcerative colitis, unspecified, without complications; D50.9 Iron deficiency anemia, unspecified; F12.90 Cannabis use, unspecified, uncomplicated; I77.1 Stricture of artery; I73.9 Peripheral vascular disease, unspecified; Z80.42 Family history of malignant neoplasm of prostate; Z86.718 Personal history of other venous thrombosis and embolism; R00.0 Tachycardia, unspecified; I25.10 Atherosclerotic heart disease of native coronary artery without angina pectoris; Z79.01 Long term (current) use of anticoagulants; Z79.82 Long term (current) use of aspirin; Z79.899 Other long term (current) drug therapy; Z91.19 Patient's noncompliance with other medical treatment and regimen
CPT/HCPCS: 36245; 37211; 93306; 96361; 96374; 99285; Z7506; 36415; 71045; 71275; 73610; 73630; 74176; 75710; 76937; 80047; 80048; 80053; 80061; 80202; 81001; 82272; 82550; 82728; 82948; 83036; 83540; 83550; 83605; 83690; 83735; 84100; 84145; 84443; 84484; 85025; 85027; 85379; 85384; 85610; 85651; 85730; 86022; 86038; 86140; 86430; 86885; 86900; 86901; 86920; 87040; 87045; 87046; 87070; 87324; 87328; 87329; 87336; 87449; 89055; 93005; 93922; 93925; 93970; 97110; 97116; 97162; 97530; 99152; 99153; A4620; A6213; A6219; A6222; A6223; A6258; A6402; A6446; A6449; A7000; C1757; C1758; C1760; C1769; C1894; J0690; J1100; J1170; J1200; J1644; J1956; J2001; J2175; J2250; J2270; J2274; J2405; J2704; J2710; J2916; J2997; J3010; J3370; J3490; J7030; J7060; J7120; P9016; Q9967

== ENCOUNTER 2018-01-05 14:03 | Outpatient (CLI) | payer BC ==
[~2018-01-05 14:03] MED LIST: APIX5TAB3 PO; ASPI-1071 PO; DOXY-200 PO; GABA-534 PO; GABA300C PO; LACT1CAP26 PO; PANT40TA4 PO
[2018-01-05 14:24] VITALS: BP 132/84
== END 2018-01-05 15:28 | disposition home or self-care (01) ==
LOC: ORTHO 14:03
PROVIDERS: ATTEND Nurse Practitioner Family
DX: I73.9 Peripheral vascular disease, unspecified (principal); K51.90 Ulcerative colitis, unspecified, without complications; Z86.718 Personal history of other venous thrombosis and embolism
CPT/HCPCS: 99214; A6446; A6449

== ENCOUNTER 2018-01-23 09:36 | Outpatient (CLI) | payer BC | END 2018-01-23 10:48 | disposition home or self-care (01) | LOC: ORTHO 09:36 | PROVIDERS: ATTEND Nurse Practitioner Family | DX: I73.9 Peripheral vascular disease, unspecified (principal) | CPT/HCPCS: 99214; A6449 ==

== ENCOUNTER 2018-01-26 08:50 | Outpatient (CLI) | payer BC ==
[2018-01-26] MEDS ORDERED: LIDOcaine 2% 5ml jelly ONE (09:37)
== END 2018-01-26 10:31 | disposition home or self-care (01) ==
LOC: WOUND CARE 08:50 → EDSTATUS 09:00 → WOUND CARE 10:31
PROVIDERS: ATTEND Surgery
DX: T87.89 Other complications of amputation stump (principal); I70.248 Atherosclerosis of native arteries of left leg with ulceration of other part of lower leg; L97.821 Non-pressure chronic ulcer of other part of left lower leg limited to breakdown of skin; Z86.718 Personal history of other venous thrombosis and embolism; I25.10 Atherosclerotic heart disease of native coronary artery without angina pectoris; F12.90 Cannabis use, unspecified, uncomplicated; Z79.01 Long term (current) use of anticoagulants; Z79.82 Long term (current) use of aspirin; Z79.899 Other long term (current) drug therapy; Y83.5 Amputation of limb(s) as the cause of abnormal reaction of the patient, or of later complication, without mention of misadventure at the time of the procedure
CPT/HCPCS: 99215; A6196; A6223; A6446

== ENCOUNTER 2018-01-30 09:44 | Day surgery (SDC) | payer BC ==
[~2018-01-30 09:44] MED LIST changes: -DOXY-200 PO; -LACT1CAP26 PO
[2018-01-30] MEDS ORDERED: LIDOcaine 2% 5ml jelly ONE (10:38)
== END 2018-01-30 11:09 | disposition home or self-care (01) ==
LOC: WOUND CARE 09:44
PROVIDERS: ATTEND Surgery
DX: T87.89 Other complications of amputation stump (principal); I70.248 Atherosclerosis of native arteries of left leg with ulceration of other part of lower leg; L97.821 Non-pressure chronic ulcer of other part of left lower leg limited to breakdown of skin; Z86.718 Personal history of other venous thrombosis and embolism; I25.10 Atherosclerotic heart disease of native coronary artery without angina pectoris; F12.90 Cannabis use, unspecified, uncomplicated; Z79.01 Long term (current) use of anticoagulants; Z79.82 Long term (current) use of aspirin; Z79.899 Other long term (current) drug therapy; Y83.5 Amputation of limb(s) as the cause of abnormal reaction of the patient, or of later complication, without mention of misadventure at the time of the procedure
CPT/HCPCS: 97597; A6206; A6446

== ENCOUNTER 2018-02-02 08:50 | Day surgery (SDC) | payer BC ==
[2018-02-02] MEDS ORDERED: LIDOcaine 2% 5ml jelly ONE (09:31)
== END 2018-02-02 10:31 | disposition home or self-care (01) ==
LOC: WOUND CARE 08:50
PROVIDERS: ATTEND Surgery
DX: T87.89 Other complications of amputation stump (principal); I70.248 Atherosclerosis of native arteries of left leg with ulceration of other part of lower leg; L97.821 Non-pressure chronic ulcer of other part of left lower leg limited to breakdown of skin; I25.10 Atherosclerotic heart disease of native coronary artery without angina pectoris; F12.90 Cannabis use, unspecified, uncomplicated; Z86.718 Personal history of other venous thrombosis and embolism; Z79.01 Long term (current) use of anticoagulants; Z79.82 Long term (current) use of aspirin; Z79.899 Other long term (current) drug therapy; Y83.5 Amputation of limb(s) as the cause of abnormal reaction of the patient, or of later complication, without mention of misadventure at the time of the procedure
CPT/HCPCS: 11042; A6021; A6206

== ENCOUNTER 2018-02-09 08:50 | Day surgery (SDC) | payer BC ==
[2018-02-09] MEDS ORDERED: LIDOcaine 2% 5ml jelly ONE ×3 (09:43→09:46)
== END 2018-02-09 10:37 | disposition home or self-care (01) ==
LOC: WOUND CARE 08:50
PROVIDERS: ATTEND Surgery
DX: T87.89 Other complications of amputation stump (principal); I70.248 Atherosclerosis of native arteries of left leg with ulceration of other part of lower leg; L97.821 Non-pressure chronic ulcer of other part of left lower leg limited to breakdown of skin; I25.10 Atherosclerotic heart disease of native coronary artery without angina pectoris; F12.90 Cannabis use, unspecified, uncomplicated; Z86.718 Personal history of other venous thrombosis and embolism; Z79.01 Long term (current) use of anticoagulants; Z79.82 Long term (current) use of aspirin; Z79.899 Other long term (current) drug therapy; Y83.5 Amputation of limb(s) as the cause of abnormal reaction of the patient, or of later complication, without mention of misadventure at the time of the procedure
CPT/HCPCS: 11042; A6021; A6206; A6446

== ENCOUNTER 2018-02-16 08:55 | Outpatient (CLI) | payer BC | END 2018-02-16 09:47 | disposition home or self-care (01) | LOC: WOUND CARE 08:55 → EDSTATUS 09:00 → WOUND CARE 09:47 | PROVIDERS: ATTEND Surgery | DX: T87.89 Other complications of amputation stump (principal); I70.248 Atherosclerosis of native arteries of left leg with ulceration of other part of lower leg; L97.821 Non-pressure chronic ulcer of other part of left lower leg limited to breakdown of skin; I25.10 Atherosclerotic heart disease of native coronary artery without angina pectoris; F12.90 Cannabis use, unspecified, uncomplicated; Z86.718 Personal history of other venous thrombosis and embolism; Z79.01 Long term (current) use of anticoagulants; Z79.82 Long term (current) use of aspirin; Z79.899 Other long term (current) drug therapy; Y83.5 Amputation of limb(s) as the cause of abnormal reaction of the patient, or of later complication, without mention of misadventure at the time of the procedure | CPT/HCPCS: 99211; A6021; A6206; A6212; A6446 ==

== ENCOUNTER 2018-02-23 08:58 | Day surgery (SDC) | payer BC | END 2018-02-23 10:39 | disposition home or self-care (01) | LOC: WOUND CARE 08:58 | PROVIDERS: ATTEND Surgery | DX: T87.89 Other complications of amputation stump (principal); I70.248 Atherosclerosis of native arteries of left leg with ulceration of other part of lower leg; L97.821 Non-pressure chronic ulcer of other part of left lower leg limited to breakdown of skin; I25.10 Atherosclerotic heart disease of native coronary artery without angina pectoris; F12.90 Cannabis use, unspecified, uncomplicated; Z86.718 Personal history of other venous thrombosis and embolism; Z79.01 Long term (current) use of anticoagulants; Z79.82 Long term (current) use of aspirin; Z79.899 Other long term (current) drug therapy; Y83.5 Amputation of limb(s) as the cause of abnormal reaction of the patient, or of later complication, without mention of misadventure at the time of the procedure | CPT/HCPCS: 97597; A6021; A6206; A6446 ==

== ENCOUNTER 2018-03-02 08:58 | Day surgery (SDC) | payer BC ==
[2018-03-02] MEDS ORDERED: LIDOcaine 2% 5ml jelly ONE ×2 (09:53→10:16)
== END 2018-03-02 11:00 | disposition home or self-care (01) ==
LOC: WOUND CARE 08:58
PROVIDERS: ATTEND Surgery
DX: T87.89 Other complications of amputation stump (principal); I70.248 Atherosclerosis of native arteries of left leg with ulceration of other part of lower leg; L97.821 Non-pressure chronic ulcer of other part of left lower leg limited to breakdown of skin; I25.10 Atherosclerotic heart disease of native coronary artery without angina pectoris; F12.90 Cannabis use, unspecified, uncomplicated; Z86.718 Personal history of other venous thrombosis and embolism; Z79.01 Long term (current) use of anticoagulants; Z79.82 Long term (current) use of aspirin; Z79.899 Other long term (current) drug therapy; Y83.5 Amputation of limb(s) as the cause of abnormal reaction of the patient, or of later complication, without mention of misadventure at the time of the procedure
CPT/HCPCS: 11042; A6021; A6206; A6446

== ENCOUNTER 2018-03-09 08:50 | Day surgery (SDC) | payer BC ==
[2018-03-09] MEDS ORDERED: LIDOcaine 2% 5ml jelly ONE (10:03)
[2018-03-09] MEDS ORDERED: Silvasorb gel 45gm tube TP ONE (10:28)
== END 2018-03-09 11:09 | disposition home or self-care (01) ==
LOC: WOUND CARE 08:50
PROVIDERS: ATTEND Surgery
DX: T87.89 Other complications of amputation stump (principal); I70.248 Atherosclerosis of native arteries of left leg with ulceration of other part of lower leg; L97.821 Non-pressure chronic ulcer of other part of left lower leg limited to breakdown of skin; I25.10 Atherosclerotic heart disease of native coronary artery without angina pectoris; F12.90 Cannabis use, unspecified, uncomplicated; Z86.718 Personal history of other venous thrombosis and embolism; Z79.01 Long term (current) use of anticoagulants; Z79.82 Long term (current) use of aspirin; Z79.899 Other long term (current) drug therapy; Y83.5 Amputation of limb(s) as the cause of abnormal reaction of the patient, or of later complication, without mention of misadventure at the time of the procedure
CPT/HCPCS: 97597; A6021; A6206; A6446

== ENCOUNTER 2018-03-16 08:40 | Day surgery (SDC) | payer BC ==
[2018-03-16] MEDS: LIDOcaine 2% 5ml jelly ONE (10:12)
== END 2018-03-16 11:00 | disposition home or self-care (01) ==
LOC: WOUND CARE 08:40
PROVIDERS: ATTEND Surgery
DX: T87.89 Other complications of amputation stump (principal); I70.248 Atherosclerosis of native arteries of left leg with ulceration of other part of lower leg; L97.821 Non-pressure chronic ulcer of other part of left lower leg limited to breakdown of skin; I25.10 Atherosclerotic heart disease of native coronary artery without angina pectoris; F12.90 Cannabis use, unspecified, uncomplicated; Z86.718 Personal history of other venous thrombosis and embolism; Z79.01 Long term (current) use of anticoagulants; Z79.82 Long term (current) use of aspirin; Z79.899 Other long term (current) drug therapy; Y83.5 Amputation of limb(s) as the cause of abnormal reaction of the patient, or of later complication, without mention of misadventure at the time of the procedure
CPT/HCPCS: 11042; A6021

== ENCOUNTER 2018-03-23 08:52 | Day surgery (SDC) | payer BC ==
[2018-03-23] MEDS ORDERED: LIDOcaine 2% 5ml jelly ONE ×2 (09:46→10:26)
== END 2018-03-23 11:41 | disposition home or self-care (01) ==
LOC: WOUND CARE 08:52
PROVIDERS: ATTEND Surgery
DX: T87.89 Other complications of amputation stump (principal); I70.248 Atherosclerosis of native arteries of left leg with ulceration of other part of lower leg; L97.821 Non-pressure chronic ulcer of other part of left lower leg limited to breakdown of skin; I25.10 Atherosclerotic heart disease of native coronary artery without angina pectoris; F12.90 Cannabis use, unspecified, uncomplicated; Z86.718 Personal history of other venous thrombosis and embolism; Z79.01 Long term (current) use of anticoagulants; Z79.82 Long term (current) use of aspirin; Z79.899 Other long term (current) drug therapy; Y83.5 Amputation of limb(s) as the cause of abnormal reaction of the patient, or of later complication, without mention of misadventure at the time of the procedure
CPT/HCPCS: 11042; 73590; A6021; A6206; A6446

== ENCOUNTER 2018-03-30 08:45 | Day surgery (SDC) | payer BC ==
[2018-03-30] MEDS ORDERED: LIDOcaine 2% 5ml jelly ONE ×2 (09:38→10:15)
== END 2018-03-30 10:45 | disposition home or self-care (01) ==
LOC: WOUND CARE 08:45
PROVIDERS: ATTEND Surgery
DX: T87.81 Dehiscence of amputation stump (principal); I70.248 Atherosclerosis of native arteries of left leg with ulceration of other part of lower leg; L97.821 Non-pressure chronic ulcer of other part of left lower leg limited to breakdown of skin; I25.10 Atherosclerotic heart disease of native coronary artery without angina pectoris; F12.90 Cannabis use, unspecified, uncomplicated; Z86.718 Personal history of other venous thrombosis and embolism; Z79.01 Long term (current) use of anticoagulants; Z79.82 Long term (current) use of aspirin; Z79.899 Other long term (current) drug therapy; Y83.5 Amputation of limb(s) as the cause of abnormal reaction of the patient, or of later complication, without mention of misadventure at the time of the procedure
CPT/HCPCS: 11042; 87070; 87075; 87102; 87176; A6021; A6206; A6209

== ENCOUNTER 2018-04-06 09:09 | Day surgery (SDC) | payer BC ==
[2018-04-06] MEDS ORDERED: LIDOcaine 2% 5ml jelly ONE (10:17)
[2018-04-06] MEDS ORDERED: Silvasorb gel 45gm tube TP ONE (11:00)
== END 2018-04-06 11:29 | disposition home or self-care (01) ==
LOC: WOUND CARE 09:09
PROVIDERS: ATTEND Surgery
DX: T87.89 Other complications of amputation stump (principal); I70.248 Atherosclerosis of native arteries of left leg with ulceration of other part of lower leg; L97.821 Non-pressure chronic ulcer of other part of left lower leg limited to breakdown of skin; I25.10 Atherosclerotic heart disease of native coronary artery without angina pectoris; F12.90 Cannabis use, unspecified, uncomplicated; Z86.718 Personal history of other venous thrombosis and embolism; Z79.01 Long term (current) use of anticoagulants; Z79.82 Long term (current) use of aspirin; Z79.899 Other long term (current) drug therapy; Y83.5 Amputation of limb(s) as the cause of abnormal reaction of the patient, or of later complication, without mention of misadventure at the time of the procedure
CPT/HCPCS: 97597; A6446

== ENCOUNTER 2018-04-13 09:00 | Day surgery (SDC) | payer BC ==
[2018-04-13] MEDS ORDERED: LIDOcaine/PRILOcaine 5gm cream TP ONE (10:36)
== END 2018-04-13 11:05 | disposition home or self-care (01) ==
LOC: WOUND CARE 09:00
PROVIDERS: ATTEND Surgery
DX: T87.89 Other complications of amputation stump (principal); I70.248 Atherosclerosis of native arteries of left leg with ulceration of other part of lower leg; L97.821 Non-pressure chronic ulcer of other part of left lower leg limited to breakdown of skin; I25.10 Atherosclerotic heart disease of native coronary artery without angina pectoris; F12.90 Cannabis use, unspecified, uncomplicated; Z86.718 Personal history of other venous thrombosis and embolism; Z79.01 Long term (current) use of anticoagulants; Z79.82 Long term (current) use of aspirin; Z79.899 Other long term (current) drug therapy; Y83.5 Amputation of limb(s) as the cause of abnormal reaction of the patient, or of later complication, without mention of misadventure at the time of the procedure
CPT/HCPCS: 97597; A6212; A6222; A6446

== ENCOUNTER 2018-04-27 09:03 | Outpatient (CLI) | payer BC | END 2018-04-27 10:22 | disposition home or self-care (01) | LOC: WOUND CARE 09:03 | PROVIDERS: ATTEND Surgery | DX: T87.89 Other complications of amputation stump (principal); I70.248 Atherosclerosis of native arteries of left leg with ulceration of other part of lower leg; L97.821 Non-pressure chronic ulcer of other part of left lower leg limited to breakdown of skin; I25.10 Atherosclerotic heart disease of native coronary artery without angina pectoris; F12.90 Cannabis use, unspecified, uncomplicated; Z86.718 Personal history of other venous thrombosis and embolism; Z79.01 Long term (current) use of anticoagulants; Z79.82 Long term (current) use of aspirin; Z79.899 Other long term (current) drug therapy; Y83.5 Amputation of limb(s) as the cause of abnormal reaction of the patient, or of later complication, without mention of misadventure at the time of the procedure | CPT/HCPCS: 99215 ==

== ENCOUNTER 2019-05-13 10:18 | Inpatient (IN) | payer BC ==
[~2019-05-13] VITALS: Ht 175.3 cm; Wt 78.6 kg
[2019-05-13] MEDS ORDERED: normal saline 1000ML IV soln IV ONE (10:45)
[2019-05-13] MEDS ORDERED: vancomycin/NS 1 GM ADD-VANTAGE 250 ML IV ONE (10:45)
[2019-05-13] MEDS ORDERED: piperacillin/tazo 3.375gm/50ml 50 ML IV ONE (10:45)
[2019-05-13] MEDS ORDERED: morphine 4 MG/ML inj SYRINge IV ONE (10:50)
[2019-05-13] MEDS ORDERED: iohexol 300mg/ml 100ml inj. ONE (11:04)
--- NOTE | 2019-05-13 11:05 | NUR ---
pt to ct
[2019-05-13 11:07] LABS: BASOPHILS # (AUTO) 0.1 X10'3 (0-0.2); HEMOGLOBIN 12.1 g/dl (14.0-17.9); MEAN PLATELET VOLUME 8.2 FL (7.4-10.4); NEUTROPHILS # (AUTO) 14.6 X10'3 (1.8-7.7); WHITE BLOOD COUNT 17.9 X10'3 (4.5-11.0)
[2019-05-13 11:08] LABS: BASOPHILS % (AUTO) 0.5 % (0-1); EOSINOPHILS % (AUTO) 0.2 % (0-6); HEMATOCRIT 36.2 % (42.0-52.0); LYMPHOCYTES # (AUTO) 1.6 X10'3 (1.1-4.8); LYMPHOCYTES % (AUTO) 9.2 % (21-51); MEAN CORPUSCULAR HEMOGLOBIN 28.1 PG (27.0-31.0); MEAN CORPUSCULAR HGB CONC 33.4 g/dL (33.0-36.5); MEAN CORPUSCULAR VOLUME 84.2 FL (78-98); MONOCYTES # (AUTO) 1.5 X10'3 (0-0.9); MONOCYTES % (AUTO) 8.2 % (2-12); NEUTROPHILS % (AUTO) 81.9 % (42-75); PLATELET COUNT 796 X10'3 (140-440)
[2019-05-13 11:16] LABS: ALANINE AMINOTRANSFERASE 174 U/L (12-78); ALBUMIN 2.3 G/DL (3.4-5.0); ALBUMIN/GLOBULIN RATIO 0.3 (1.1-1.5); ALKALINE PHOSPHATASE 646 IU/L (46-116); ANION GAP 14 (8-16); ASPARTATE AMINO TRANSFERASE 71 U/L (10-37); BILIRUBIN,TOTAL 0.3 MG/DL (0.1-1.0); BLOOD UREA NITROGEN 5 MG/DL (7-18); BUN/CREATININE RATIO 6.6 (5.4-32.0); CALCIUM 9.4 MG/DL (8.5-10.1); CHLORIDE 95 MMOL/L (99-107); CREATININE 0.76 MG/DL (0.60-1.10); GLUCOSE 130 MG/DL (70-104); SODIUM 135 MMOL/L (135-145); TOTAL CARBON DIOXIDE 26.5 MMOL/L (24-32); TOTAL PROTEIN 9.1 G/DL (6.4-8.2); eGFR > 90 ML/MIN
[2019-05-13 11:26] LABS: POTASSIUM 2.8 MMOL/L (3.5-5.1)
[2019-05-13] MEDS ORDERED: potassium Cl 10 mEq/100mL bag IV ONE (11:30)
[2019-05-13 11:35] LABS: LARGE PLATELETS FEW; PLATELET ESTIMATE INCREASED; TOTAL CELLS COUNTED 100
[2019-05-13 11:36] LABS: ANISOCYTOSIS 2+; TOXIC GRANULATION 1+
[2019-05-13] MEDS: dextrose 5%-1/2 normal saline 1,000 ML IV SCH ×2 (11:43→16:49)
[2019-05-13] MEDS ORDERED: HYDROcodone/acetaminophen 5mg/325mg tablet PO PRN (11:45)
[2019-05-13] MEDS ORDERED: ondansetron/PF 4mg/2ml inj IV PRN (11:45)
[2019-05-13] MEDS ORDERED: acetaminophen 325mg tablet PO PRN (11:45)
[2019-05-13] MEDS ORDERED: magnesium hydroxide 30ml (MOM) UD suspension PO PRN (11:45)
[2019-05-13] MEDS ORDERED: mag hydrox/Alum hydrox/simeth 30ml oral suspension PO PRN (11:45)
[2019-05-13] MEDS ORDERED: morphine 2 MG/ML inj. syringe IV PRN (11:45)
[2019-05-13] MEDS ORDERED: potassium chloride 10mEq CAPSULE.SA PO ONE (11:50)
[2019-05-13] MEDS ORDERED: potassium Cl 20 mEq SR tablet PO ONE (11:55)
[2019-05-13] MEDS ORDERED: MULT-933 PO (12:10)
[2019-05-13] MEDS ORDERED: HYDR-3972 PO (12:10)
[2019-05-13] MEDS ORDERED: ASCO500C15 PO (12:10)
[2019-05-13] MEDS ORDERED: AMOX1TAB15 PO (12:11)
[2019-05-13 12:51] LABS: CLARITY,URINE SLIGHTLY CLOUDY (Clear); COLOR,URINE YELLOW (Yellow); GLUCOSE, URINE NEGATIVE (Neg); KETONES,URINE NEGATIVE (Neg); LEUKOCYTE ESTERASE ,URINE NEGATIVE (Neg); NITRITES, URINE NEGATIVE (Neg); OCCULT BLOOD,URINE TRACE-INTACT (Neg); PROTEIN,URINE NEGATIVE (Neg); UROBILINOGEN,URINE 0.2 E.U/dL (0.2-1.0)
[2019-05-13 13:00] LABS: UA COLLECTION TYPE URINAL
[2019-05-13 13:02] LABS: SQUAMOUS EPITHELIAL CELL,UR FEW /LPF (FEW)
[2019-05-13 13:03] LABS: BACTERIA,URINE FEW /HPF (Neg); WBC,URINE 0-4 /HPF (0-4)
[2019-05-13 13:08] LABS: URINE AMPHETAMINE SCREEN NEGATIVE (Neg); URINE BARBITUATE SCREEN NEGATIVE (Neg); URINE BENZODIAZEPINES SCREEN NEGATIVE (Neg); URINE CANNABINOID SCREEN POSITIVE (Neg); URINE COCAINE SCREEN NEGATIVE (Neg); URINE METHADONE SCREEN NEGATIVE (Neg); URINE OPIATE SCREEN POSITIVE (Neg); URINE PHENCYCLIDINE SCREEN NEGATIVE (Neg)
[2019-05-13] MEDS: HYDROcodone/acetaminophen 10/325mg tab PO PRN ×2 (14:14→20:23)
[2019-05-13] MEDS: K and/or MAG REPLACEMENT MC SCH (19:20)
[2019-05-13] MEDS ORDERED: potassium CL 10mEq/100ml bag 100 ML IV PRN ×2 (19:20)
[2019-05-13] MEDS ORDERED: magnesium 2GM in 50ml NS 50 ML IV PRN (19:20)
[2019-05-13] MEDS ORDERED: magnesium 4gm in 100ml NS 100 ML IV PRN (19:20)
[2019-05-13 20:00] VITALS: BP 116/76
[2019-05-13] MEDS ORDERED: vancomycin/NS 1 GM ADD-VANTAGE 250 ML IV SCH (20:00)
[2019-05-13] MEDS: ascorbic acid 500mg tablet PO SCH (20:23)
[2019-05-13] MEDS: potassium Cl 20 mEq SR tablet PO PRN (20:23)
[2019-05-13] MEDS: vancomycin/NS 1 GM ADD-VANTAGE 250 ML IV SCH (20:23)
[2019-05-13] MEDS: morphine 2 MG/ML inj. syringe IV PRN (23:09)
[2019-05-14] VITALS: BP 121/70
[2019-05-14] MEDS: dextrose 5%-1/2 normal saline 1,000 ML IV SCH ×2 (03:44→18:50)
--- NOTE | 2019-05-14 04:00 | NUR ---
Student documentation: I have reviewed and agree with all interventions, assessments performed and documented by ABRIL .Student Medication Administration: For this medication-pass time frame, all medication were reviewed, dispensed, administered and documented per hospital policy by ABRIL.
[2019-05-14] MEDS: vancomycin/NS 1 GM ADD-VANTAGE 250 ML IV SCH ×2 (04:55→13:15)
[2019-05-14] MEDS: potassium Cl 20 mEq SR tablet PO PRN ×4 (04:56→18:46)
[2019-05-14 06:08] LABS: BASOPHILS # (AUTO) 0.1 X10'3 (0-0.2); BASOPHILS % (AUTO) 0.7 % (0-1); EOSINOPHILS # (AUTO) 0.1 X10'3 (0-0.9); HEMOGLOBIN 10.1 g/dl (14.0-17.9); LYMPHOCYTES # (AUTO) 2.4 X10'3 (1.1-4.8); PLATELET COUNT 713 X10'3 (140-440); WHITE BLOOD COUNT 15.8 X10'3 (4.5-11.0)
[2019-05-14 06:09] LABS: EOSINOPHILS % (AUTO) 0.7 % (0-6); HEMATOCRIT 30.6 % (42.0-52.0); LYMPHOCYTES % (AUTO) 15.1 % (21-51); MEAN CORPUSCULAR HEMOGLOBIN 28.2 PG (27.0-31.0); MEAN CORPUSCULAR HGB CONC 33.1 g/dL (33.0-36.5); MEAN CORPUSCULAR VOLUME 85.4 FL (78-98); MEAN PLATELET VOLUME 8.1 FL (7.4-10.4); MONOCYTES # (AUTO) 1.5 X10'3 (0-0.9); MONOCYTES % (AUTO) 9.5 % (2-12); NEUTROPHILS # (AUTO) 11.7 X10'3 (1.8-7.7); RED BLOOD COUNT 3.59 X10'6 (4.70-6.10); RED CELL DISTRIBUTION WIDTH 19.1 % (11.5-14.5)
--- NOTE | 2019-05-14 06:10 | NUR ---
Problems reprioritized. Patient report given, questions answered & plan of care reviewed with JF Florence.
--- NOTE | 2019-05-14 06:20 | NUR ---
Patient in room XAVIER 360. I have received report from Madelyn RHOADES and had the opportunity to ask questions and assume patient care. Patient resting in bed, observed clean, dry, dressing. Will continue to monitor.
[2019-05-14 06:46] LABS: ALANINE AMINOTRANSFERASE 98 U/L (12-78); ALBUMIN 1.7 G/DL (3.4-5.0); ALBUMIN/GLOBULIN RATIO 0.3 (1.1-1.5); ALKALINE PHOSPHATASE 420 IU/L (46-116); ANION GAP 10 (8-16); ASPARTATE AMINO TRANSFERASE 32 U/L (10-37); BILIRUBIN,TOTAL 0.2 MG/DL (0.1-1.0); BLOOD UREA NITROGEN 5 MG/DL (7-18); BUN/CREATININE RATIO 7.6 (5.4-32.0); CALCIUM 9.6 MG/DL (8.5-10.1); CHLORIDE 106 MMOL/L (99-107); CREATININE 0.66 MG/DL (0.60-1.10); GLUCOSE 115 MG/DL (70-104); MAGNESIUM 2.3 MG/DL (1.5-2.4); POTASSIUM 3.2 MMOL/L (3.5-5.1); SODIUM 140 MMOL/L (135-145); TOTAL CARBON DIOXIDE 24.4 MMOL/L (24-32); eGFR > 90 ML/MIN
[2019-05-14] MEDS: morphine 2 MG/ML inj. syringe IV PRN (07:30)
[2019-05-14 07:31] LABS: TOTAL CELLS COUNTED 100
[2019-05-14] MEDS: multivitamins, therapeutics tablet PO SCH (07:31)
[2019-05-14] MEDS: ascorbic acid 500mg tablet PO SCH ×2 (07:31→20:29)
[2019-05-14 07:32] LABS: ANISOCYTOSIS 2+; PLATELET ESTIMATE INCREASED
[2019-05-14 07:33] LABS: TOXIC GRANULATION 1+
[2019-05-14 07:45] VITALS: BP 122/80
[2019-05-14] MEDS: K and/or MAG REPLACEMENT MC SCH (09:46)
[2019-05-14] MEDS: HYDROcodone/acetaminophen 10/325mg tab PO PRN ×4 (09:48→22:46)
[2019-05-14 11:08] VITALS: BP 110/61
[2019-05-14] MEDS ORDERED: VANCOMYCIN LEVEL IV ONE (12:30)
--- NOTE | 2019-05-14 16:00 | NUR ---
Wound care provided due to drainage noted to high forearm and wrist area, cleansed with wound cleanser, rinsed with normal saline, pat dry, applied INZO to intact skin from elbow to wrist, applied therahoney to wound bed, applied alginate, gauze and wrapped with gauze roll and secured with medipore. Will continue to monitor.
--- NOTE | 2019-05-14 18:47 | NUR ---
Problems reprioritized. Patient report given, questions answered & plan of care reviewed with Gayathri RHOADES.
[2019-05-14 20:00] VITALS: BP 116/69
[2019-05-14] MEDS: lactobacillus rhamnosus 10,000 MMU CELLS/CAPSULE PO SCH (20:30)
[2019-05-15] VITALS: BP 122/79
[2019-05-15] MEDS: dextrose 5%-1/2 normal saline 1,000 ML IV SCH ×3 (04:50→19:44)
[2019-05-15 05:50] LABS: BASOPHILS # (AUTO) 0.1 X10'3 (0-0.2); EOSINOPHILS # (AUTO) 0.1 X10'3 (0-0.9); EOSINOPHILS % (AUTO) 0.6 % (0-6); HEMOGLOBIN 9.7 g/dl (14.0-17.9); MEAN PLATELET VOLUME 7.7 FL (7.4-10.4)
[2019-05-15 05:52] LABS: BASOPHILS % (AUTO) 0.6 % (0-1); HEMATOCRIT 30.1 % (42.0-52.0); LYMPHOCYTES # (AUTO) 2.3 X10'3 (1.1-4.8); LYMPHOCYTES % (AUTO) 17.7 % (21-51); MEAN CORPUSCULAR HEMOGLOBIN 27.8 PG (27.0-31.0); MEAN CORPUSCULAR HGB CONC 32.4 g/dL (33.0-36.5); MEAN CORPUSCULAR VOLUME 85.8 FL (78-98); MONOCYTES % (AUTO) 7.9 % (2-12); NEUTROPHILS # (AUTO) 9.4 X10'3 (1.8-7.7); NEUTROPHILS % (AUTO) 73.2 % (42-75); PLATELET COUNT 738 X10'3 (140-440); RED CELL DISTRIBUTION WIDTH 19.1 % (11.5-14.5); WHITE BLOOD COUNT 12.8 X10'3 (4.5-11.0)
[2019-05-15 06:08] LABS: ALANINE AMINOTRANSFERASE 64 U/L (12-78); ALBUMIN 1.6 G/DL (3.4-5.0); ALBUMIN/GLOBULIN RATIO 0.3 (1.1-1.5); ALKALINE PHOSPHATASE 332 IU/L (46-116); ANION GAP 5 (8-16); ASPARTATE AMINO TRANSFERASE 14 U/L (10-37); BILIRUBIN,TOTAL 0.2 MG/DL (0.1-1.0); BLOOD UREA NITROGEN 4 MG/DL (7-18); BUN/CREATININE RATIO 6.2 (5.4-32.0); CALCIUM 8.5 MG/DL (8.5-10.1); CHLORIDE 108 MMOL/L (99-107); CREATININE 0.65 MG/DL (0.60-1.10); GLUCOSE 108 MG/DL (70-104); MAGNESIUM 1.9 MG/DL (1.5-2.4); POTASSIUM 3.8 MMOL/L (3.5-5.1); SODIUM 140 MMOL/L (135-145); TOTAL CARBON DIOXIDE 27.1 MMOL/L (24-32); TOTAL PROTEIN 6.3 G/DL (6.4-8.2); eGFR > 90 ML/MIN
--- NOTE | 2019-05-15 06:24 | NUR ---
Problems reprioritized. Patient report given, questions answered & plan of care reviewed with Rossy RHOADES.
[2019-05-15 06:44] LABS: TOTAL CELLS COUNTED 100
[2019-05-15 06:45] LABS: ANISOCYTOSIS 2+; PLATELET ESTIMATE INCREASED; TOXIC GRANULATION 1+
[2019-05-15 07:20] VITALS: BP 118/79
[2019-05-15] MEDS: K and/or MAG REPLACEMENT MC SCH (08:00)
[2019-05-15] MEDS: multivitamins, therapeutics tablet PO SCH (08:02)
[2019-05-15] MEDS: lactobacillus rhamnosus 10,000 MMU CELLS/CAPSULE PO SCH ×2 (08:02→19:26)
[2019-05-15] MEDS: ascorbic acid 500mg tablet PO SCH ×2 (08:02→19:26)
[2019-05-15] MEDS: HYDROcodone/acetaminophen 10/325mg tab PO PRN ×2 (08:05→14:04)
--- NOTE | 2019-05-15 10:44 | NUR ---
wound care nurse at bedside. also visualized open wound.
[2019-05-15 11:30] VITALS: BP 123/84
--- NOTE | 2019-05-15 12:00 | NUR ---
Received report, assumed pt care. Pt in bed resting well, no s/s of distress at this time. Call light within reach, bed locked and in low position. Will continue to monitor.
[2019-05-15] MEDS ORDERED: HYDROmorphone inj. 0.5 MG/0.5 ML DISP.SYRIN IV PRN (12:25)
[2019-05-15 13:27] VITALS: BP 124/74
[2019-05-15] MEDS: HYDROmorphone 1 mg/ml syringe IV PRN (17:33)
--- NOTE | 2019-05-15 17:57 | NUR ---
Reporting off to primary RN Rossy, pt in bed resting, no s/s of distress at this time. Call light within reach, bed in low position and locked.
[2019-05-15 18:00] VITALS: BP 124/75
--- NOTE | 2019-05-15 18:04 | NUR ---
Student documentation: I have reviewed interventions, assessments performed and documented by Cherri Student Nurse.
--- NOTE | 2019-05-15 18:04 | NUR ---
Received report from JF Diana. Patient is awake and alert on room air, in no apparent distress. Call light and items of frequent use within reach. Will continue to monitor.
--- NOTE | 2019-05-15 18:18 | NUR ---
Problems reprioritized. Patient report given, questions answered & plan of care reviewed with JF Joshi.
[2019-05-15] MEDS ORDERED: VANCOMYCIN LEVEL IV ONE (20:30)
[2019-05-16] VITALS (15 sets, daily range): BP systolic 122–151; BP diastolic 77–93
[2019-05-16 05:47] LABS: EOSINOPHILS # (AUTO) 0.1 X10'3 (0-0.9); HEMATOCRIT 29.2 % (42.0-52.0); HEMOGLOBIN 9.5 g/dl (14.0-17.9); MEAN PLATELET VOLUME 7.5 FL (7.4-10.4); MONOCYTES # (AUTO) 0.9 X10'3 (0-0.9)
[2019-05-16 05:50] LABS: BASOPHILS # (AUTO) 0.1 X10'3 (0-0.2); BASOPHILS % (AUTO) 0.5 % (0-1); EOSINOPHILS % (AUTO) 0.6 % (0-6); LYMPHOCYTES # (AUTO) 1.8 X10'3 (1.1-4.8); LYMPHOCYTES % (AUTO) 14.8 % (21-51); MEAN CORPUSCULAR HEMOGLOBIN 27.9 PG (27.0-31.0); MEAN CORPUSCULAR HGB CONC 32.4 g/dL (33.0-36.5); MEAN CORPUSCULAR VOLUME 85.9 FL (78-98); MONOCYTES % (AUTO) 7.2 % (2-12); NEUTROPHILS # (AUTO) 9.4 X10'3 (1.8-7.7); NEUTROPHILS % (AUTO) 76.9 % (42-75); PLATELET COUNT 829 X10'3 (140-440); RED BLOOD COUNT 3.39 X10'6 (4.70-6.10); RED CELL DISTRIBUTION WIDTH 19.3 % (11.5-14.5); WHITE BLOOD COUNT 12.2 X10'3 (4.5-11.0)
[2019-05-16 06:10] LABS: ALANINE AMINOTRANSFERASE 50 U/L (12-78); ALBUMIN 1.7 G/DL (3.4-5.0); ALBUMIN/GLOBULIN RATIO 0.4 (1.1-1.5); ALKALINE PHOSPHATASE 304 IU/L (46-116); ANION GAP 9 (8-16); ASPARTATE AMINO TRANSFERASE 16 U/L (10-37); BILIRUBIN,TOTAL 0.2 MG/DL (0.1-1.0); BLOOD UREA NITROGEN 6 MG/DL (7-18); BUN/CREATININE RATIO 9.4 (5.4-32.0); CALCIUM 8.3 MG/DL (8.5-10.1); CHLORIDE 107 MMOL/L (99-107); CREATININE 0.64 MG/DL (0.60-1.10); GLUCOSE 116 MG/DL (70-104); MAGNESIUM 1.9 MG/DL (1.5-2.4); POTASSIUM 3.9 MMOL/L (3.5-5.1); SODIUM 141 MMOL/L (135-145); TOTAL CARBON DIOXIDE 24.7 MMOL/L (24-32); TOTAL PROTEIN 6.4 G/DL (6.4-8.2); eGFR > 90 ML/MIN
--- NOTE | 2019-05-16 06:32 | NUR ---
Problems reprioritized. Patient report given, questions answered & plan of care reviewed with JF Hernandez.
[2019-05-16] MEDS: K and/or MAG REPLACEMENT MC SCH (07:07)
[2019-05-16 07:21] LABS: ANISOCYTOSIS 2+; PLATELET ESTIMATE INCREASED; TOTAL CELLS COUNTED 100
[2019-05-16 07:26] LABS: TOXIC GRANULATION 1+
[2019-05-16] MEDS: HYDROcodone/acetaminophen 10/325mg tab PO PRN ×2 (07:49→19:24)
[2019-05-16] MEDS: lactobacillus rhamnosus 10,000 MMU CELLS/CAPSULE PO SCH ×2 (07:51→19:24)
[2019-05-16] MEDS: ascorbic acid 500mg tablet PO SCH ×2 (07:51→19:24)
[2019-05-16] MEDS: multivitamins, therapeutics tablet PO SCH (07:51)
[2019-05-16] MEDS: dextrose 5%-1/2 normal saline 1,000 ML IV SCH ×2 (09:43→20:24)
[2019-05-16] MEDS ORDERED: sevoflurane 250ml liquid IH ONE (13:11)
[2019-05-16] MEDS ORDERED: midazolam 2 mg/2 ml injection ONE (13:15)
[2019-05-16] MEDS ORDERED: fentaNYL/PF 50MCG/1 ML 2ML syringe ONE (13:15)
[2019-05-16] MEDS ORDERED: propofol inj 20 ML IV ONE (13:16)
[2019-05-16] MEDS ORDERED: ringers solution, lacted 1,000 ML IV SCH (13:26)
[2019-05-16] MEDS ORDERED: meperidine/PF 25mg/ml syringe IV PRN ×3 (13:30)
[2019-05-16] MEDS ORDERED: ondansetron/PF 4mg/2ml inj IV PRN (13:30)
[2019-05-16] MEDS ORDERED: proCHLORperazine 10 MG/2 ml inj IV PRN (13:30)
[2019-05-16] MEDS ORDERED: morphine 4 MG/ML inj SYRINge IV PRN ×2 (13:30)
--- NOTE | 2019-05-16 13:52 | NUR ---
Received from OR via SURGICAL BED , accompanied by Anesthesiologist SHEILA and report given by Anesthesiolgist. PATIENT WITH 22G PIV IN LEFT UE RUNNING LR AT 100. RIGHT FOREARM IN SPLINT. 10L MASK ON WITH 100% SATURATIONS. VSS. Addendum: 05/16/19 at 1357 by Abdiel Castro RN, RN Amended: Links added.
[2019-05-16] MEDS ORDERED: HYDROmorphone inj. 0.5 MG/0.5 ML DISP.SYRIN IV PRN ×2 (14:15)
[2019-05-16] MEDS ORDERED: HYDROmorphone 1 mg/ml syringe ONE (14:23)
--- NOTE | 2019-05-16 14:47 | NUR ---
ALL CRITERIA FOR TRANSFER TO THE FLOOR HAS BEEN ACHIEVED. VSS. BED LOW, CALL LIGHT AND VS. SET IN PLACE. RN PRESENT TO ACCEPT CARE. PATIENT RESTING COMFORTABLY IN BED. BELONGINGS SENT WITH PATIENT. DRESSINGS CDI. RIGHT ARM ELEVATED WITH WRIST ABOVE ELBOW, ELBOW ABOVE HEART. Addendum: 05/16/19 at 1506 by Abdiel Castro RN, RN Amended: Links added.
[2019-05-16] MEDS: HYDROmorphone 1 mg/ml syringe IV PRN (15:38)
--- NOTE | 2019-05-16 17:21 | NUR ---
Student documentation: I have reviewed all interventions, assessments performed and documented by Cherri LATIF
--- NOTE | 2019-05-16 18:24 | NUR ---
Problems reprioritized. Patient report given, questions answered & plan of care reviewed with GARETH RHOADES.
--- NOTE | 2019-05-16 18:25 | NUR ---
Patient in room XAVIER 360. I have received report from JF Hernandez and had the opportunity to ask questions and assume patient care.
[2019-05-17] VITALS: BP 115/70
[2019-05-17] MEDS: dextrose 5%-1/2 normal saline 1,000 ML IV SCH ×2 (04:58→08:35)
--- NOTE | 2019-05-17 06:25 | NUR ---
Problems reprioritized. Patient report given, questions answered & plan of care reviewed with JF Hernandez.
[2019-05-17 06:28] LABS: EOSINOPHILS # (AUTO) 0.1 X10'3 (0-0.9); EOSINOPHILS % (AUTO) 0.8 % (0-6); HEMOGLOBIN 9.5 g/dl (14.0-17.9); MEAN CORPUSCULAR HEMOGLOBIN 28.1 PG (27.0-31.0); RED CELL DISTRIBUTION WIDTH 19.3 % (11.5-14.5)
[2019-05-17 06:30] LABS: BASOPHILS # (AUTO) 0.1 X10'3 (0-0.2); BASOPHILS % (AUTO) 0.6 % (0-1); HEMATOCRIT 29.1 % (42.0-52.0); LYMPHOCYTES # (AUTO) 1.7 X10'3 (1.1-4.8); LYMPHOCYTES % (AUTO) 16.6 % (21-51); MEAN CORPUSCULAR HGB CONC 32.7 g/dL (33.0-36.5); MEAN CORPUSCULAR VOLUME 86.1 FL (78-98); MEAN PLATELET VOLUME 7.4 FL (7.4-10.4); MONOCYTES # (AUTO) 0.8 X10'3 (0-0.9); MONOCYTES % (AUTO) 8.2 % (2-12); NEUTROPHILS # (AUTO) 7.4 X10'3 (1.8-7.7); NEUTROPHILS % (AUTO) 73.8 % (42-75); PLATELET COUNT 819 X10'3 (140-440); RED BLOOD COUNT 3.37 X10'6 (4.70-6.10)
[2019-05-17 06:33] LABS: ALANINE AMINOTRANSFERASE 40 U/L (12-78); ALBUMIN 1.7 G/DL (3.4-5.0); ALBUMIN/GLOBULIN RATIO 0.4 (1.1-1.5); ALKALINE PHOSPHATASE 273 IU/L (46-116); ANION GAP 10 (8-16); ASPARTATE AMINO TRANSFERASE 16 U/L (10-37); BILIRUBIN,TOTAL 0.2 MG/DL (0.1-1.0); BLOOD UREA NITROGEN 8 MG/DL (7-18); BUN/CREATININE RATIO 11.9 (5.4-32.0); CALCIUM 8.2 MG/DL (8.5-10.1); CHLORIDE 106 MMOL/L (99-107); CREATININE 0.67 MG/DL (0.60-1.10); GLUCOSE 103 MG/DL (70-104); MAGNESIUM 1.8 MG/DL (1.5-2.4); POTASSIUM 4.5 MMOL/L (3.5-5.1); SODIUM 140 MMOL/L (135-145); TOTAL CARBON DIOXIDE 24.5 MMOL/L (24-32); TOTAL PROTEIN 6.4 G/DL (6.4-8.2); eGFR > 90 ML/MIN
[2019-05-17 07:06] VITALS: BP 130/79
[2019-05-17] MEDS: K and/or MAG REPLACEMENT MC SCH (07:19)
[2019-05-17] MEDS: lactobacillus rhamnosus 10,000 MMU CELLS/CAPSULE PO SCH ×2 (07:27→20:02)
[2019-05-17] MEDS: multivitamins, therapeutics tablet PO SCH (07:27)
[2019-05-17] MEDS: ascorbic acid 500mg tablet PO SCH ×2 (07:27→20:02)
[2019-05-17] MEDS: HYDROcodone/acetaminophen 10/325mg tab PO PRN ×3 (07:29→20:02)
[2019-05-17 11:19] LABS: ANISOCYTOSIS 2+; PLATELET ESTIMATE INCREASED; TOTAL CELLS COUNTED 100
[2019-05-17 11:20] LABS: HYPOCHROMASIA 1+; POLYCHROMASIA 1+; TOXIC GRANULATION 2+
--- NOTE | 2019-05-17 11:33 | NUR ---
Initial: Pt admit with cellulitis and infected wound on right wrist now s/p I&D. Pt currently on regular diet documented with 100% PO intake meeting nutrient needs. Recommend double protein TID to provide satiety and additional protein for skin integrity. LBM 05/15 with PRN bowel care. No nutrition diagnosis at this time. Will continue to follow. Recommendations: 1) Continue regular diet 2) Double protein TID 3) Bowel care 4) Wt per rx Addendum: 05/17/19 at [address] Amended: Links added.
[2019-05-17 11:41] VITALS: BP 106/74
[2019-05-17 18:00] VITALS: BP 131/88
--- NOTE | 2019-05-17 18:37 | NUR ---
Problems reprioritized. Patient report given, questions answered & plan of care reviewed with ruben gerard.
--- NOTE | 2019-05-17 18:38 | NUR ---
Patient in room XAVIER 360. I have received report from JF Hernandez and had the opportunity to ask questions and assume patient care.
[2019-05-17] MEDS: HYDROmorphone 1 mg/ml syringe IV PRN (22:25)
[2019-05-18] VITALS: BP 110/63
[2019-05-18 05:34] LABS: BASOPHILS # (AUTO) 0.1 X10'3 (0-0.2); EOSINOPHILS # (AUTO) 0.1 X10'3 (0-0.9); PLATELET COUNT 842 X10'3 (140-440)
[2019-05-18 05:37] LABS: BASOPHILS % (AUTO) 1.1 % (0-1); EOSINOPHILS % (AUTO) 1.3 % (0-6); HEMATOCRIT 29.6 % (42.0-52.0); HEMOGLOBIN 9.9 g/dl (14.0-17.9); LYMPHOCYTES # (AUTO) 1.9 X10'3 (1.1-4.8); MEAN CORPUSCULAR HEMOGLOBIN 28.4 PG (27.0-31.0); MEAN CORPUSCULAR HGB CONC 33.3 g/dL (33.0-36.5); MEAN CORPUSCULAR VOLUME 85.2 FL (78-98); MEAN PLATELET VOLUME 7.1 FL (7.4-10.4); MONOCYTES # (AUTO) 0.7 X10'3 (0-0.9); MONOCYTES % (AUTO) 8.5 % (2-12); NEUTROPHILS # (AUTO) 5.7 X10'3 (1.8-7.7); NEUTROPHILS % (AUTO) 67.1 % (42-75); RED BLOOD COUNT 3.47 X10'6 (4.70-6.10); RED CELL DISTRIBUTION WIDTH 19.4 % (11.5-14.5); WHITE BLOOD COUNT 8.4 X10'3 (4.5-11.0)
[2019-05-18 05:55] LABS: ALANINE AMINOTRANSFERASE 36 U/L (12-78); ALBUMIN/GLOBULIN RATIO 0.4 (1.1-1.5); ALKALINE PHOSPHATASE 264 IU/L (46-116); ANION GAP 8 (8-16); ASPARTATE AMINO TRANSFERASE 13 U/L (10-37); BILIRUBIN,TOTAL 0.2 MG/DL (0.1-1.0); BLOOD UREA NITROGEN 11 MG/DL (7-18); BUN/CREATININE RATIO 16.2 (5.4-32.0); CALCIUM 9.1 MG/DL (8.5-10.1); CHLORIDE 106 MMOL/L (99-107); CREATININE 0.68 MG/DL (0.60-1.10); GLUCOSE 97 MG/DL (70-104); MAGNESIUM 2.1 MG/DL (1.5-2.4); POTASSIUM 4.3 MMOL/L (3.5-5.1); SODIUM 139 MMOL/L (135-145); TOTAL CARBON DIOXIDE 24.8 MMOL/L (24-32); eGFR > 90 ML/MIN
--- NOTE | 2019-05-18 06:30 | NUR ---
Patient in room XAVIER 360. I have received report from Mateo RHOADES and had the opportunity to ask questions and assume patient care.
[2019-05-18 06:34] LABS: ANISOCYTOSIS 2+; HYPOCHROMASIA 1+; PLATELET ESTIMATE INCREASED; POLYCHROMASIA FEW; TOTAL CELLS COUNTED 100; TOXIC GRANULATION 1+
--- NOTE | 2019-05-18 06:43 | NUR ---
Problems reprioritized. Patient report given, questions answered & plan of care reviewed with JF Cruz.
[2019-05-18 07:40] VITALS: BP 81/50
[2019-05-18] MEDS: K and/or MAG REPLACEMENT MC SCH (08:00)
[2019-05-18] MEDS: ascorbic acid 500mg tablet PO SCH ×2 (08:29→20:07)
[2019-05-18] MEDS: lactobacillus rhamnosus 10,000 MMU CELLS/CAPSULE PO SCH ×2 (08:30→20:07)
[2019-05-18] MEDS: HYDROcodone/acetaminophen 10/325mg tab PO PRN (08:30)
[2019-05-18] MEDS: multivitamins, therapeutics tablet PO SCH (08:30)
[2019-05-18 11:00] VITALS: BP 115/78
[2019-05-18] MEDS: HYDROmorphone 1 mg/ml syringe IV PRN (15:51)
[2019-05-18 18:00] VITALS: BP 117/69
--- NOTE | 2019-05-18 18:31 | NUR ---
Problems reprioritized. Patient report given, questions answered & plan of care reviewed with Mateo RHAODES.
--- NOTE | 2019-05-18 19:02 | NUR ---
Patient in room XAVIER 360. I have received report from JF Cruz and had the opportunity to ask questions and assume patient care.
[2019-05-19] MEDS: HYDROmorphone 1 mg/ml syringe IV PRN ×3 (00:07→22:09)
[2019-05-19 00:38] VITALS: BP 119/75
--- NOTE | 2019-05-19 06:16 | NUR ---
Problems reprioritized. Patient report given, questions answered & plan of care reviewed with JF Cruz.
--- NOTE | 2019-05-19 06:30 | NUR ---
Patient in room XAVIER 360. I have received report from Mateo RHOADES and had the opportunity to ask questions and assume patient care.
[2019-05-19 07:00] VITALS: BP 111/71
[2019-05-19] MEDS: K and/or MAG REPLACEMENT MC SCH (08:00)
[2019-05-19] MEDS: ascorbic acid 500mg tablet PO SCH ×2 (09:44→20:40)
[2019-05-19] MEDS: multivitamins, therapeutics tablet PO SCH (09:44)
[2019-05-19] MEDS: lactobacillus rhamnosus 10,000 MMU CELLS/CAPSULE PO SCH ×2 (09:45→20:40)
[2019-05-19 11:00] VITALS: BP 118/73
[2019-05-19 18:00] VITALS: BP 124/72
--- NOTE | 2019-05-19 18:30 | NUR ---
Problems reprioritized. Patient report given, questions answered & plan of care reviewed with Mateo RHOADES.
--- NOTE | 2019-05-19 18:30 | NUR ---
Patient in room XAVIER 360. I have received report from JF Cruz and had the opportunity to ask questions and assume patient care.
[2019-05-20 00:27] VITALS: BP 110/72
--- NOTE | 2019-05-20 06:10 | NUR ---
Problems reprioritized. Patient report given, questions answered & plan of care reviewed with JF Cruz.
--- NOTE | 2019-05-20 06:30 | NUR ---
Patient in room XAVIER 360. I have received report from Mateo RHOADES and had the opportunity to ask questions and assume patient care.
--- NOTE | 2019-05-20 06:56 | NUR ---
Patient in room XAVIER 360. I have received report from Mateo RHOADES and had the opportunity to ask questions and assume patient care.
[2019-05-20 08:00] VITALS: BP 117/73
[2019-05-20] MEDS: K and/or MAG REPLACEMENT MC SCH (08:00)
[2019-05-20] MEDS: lactobacillus rhamnosus 10,000 MMU CELLS/CAPSULE PO SCH ×2 (08:05→21:47)
[2019-05-20] MEDS: ascorbic acid 500mg tablet PO SCH ×2 (08:06→21:47)
[2019-05-20] MEDS: multivitamins, therapeutics tablet PO SCH (08:06)
[2019-05-20 11:00] VITALS: BP 113/79
--- NOTE | 2019-05-20 11:58 | NUR ---
Problems reprioritized. Patient report given, questions answered & plan of care reviewed with Iraj and Lucila Nursing Students.
--- NOTE | 2019-05-20 11:59 | NUR ---
Student Medication Administration: For this medication-pass time frame, all medication were reviewed, dispensed, administered and documented per hospital policy by Tom Jaffe.
--- NOTE | 2019-05-20 12:02 | NUR ---
Problems reprioritized. Patient report given, questions answered & plan of care reviewed with Iraj and Lucila nursing students.
--- NOTE | 2019-05-20 12:05 | NUR ---
Received report from nursing students Grayson.
--- NOTE | 2019-05-20 12:06 | NUR ---
Received report from Mar, nursing students
--- NOTE | 2019-05-20 14:15 | NUR ---
reviewed nursing students physical assessment of pt
[2019-05-20] MEDS: HYDROmorphone 1 mg/ml syringe IV PRN ×2 (14:17→21:49)
[2019-05-20 18:00] VITALS: BP 127/79
--- NOTE | 2019-05-20 18:08 | NUR ---
Problems reprioritized. Patient report given, questions answered & plan of care reviewed with Mateo RHOADES.
--- NOTE | 2019-05-20 18:10 | NUR ---
Patient in room XAVIER 360. I have received report from JF Cruz and had the opportunity to ask questions and assume patient care.
[2019-05-20] MEDS ORDERED: SULF1TAB49 PO (19:49)
[2019-05-21] VITALS: BP 116/70
--- NOTE | 2019-05-21 06:25 | NUR ---
Problems reprioritized. Patient report given, questions answered & plan of care reviewed with Bony Calderón and BONY Rausch.
[2019-05-21 07:10] VITALS: BP 113/78
[2019-05-21] MEDS: K and/or MAG REPLACEMENT MC SCH (08:00)
[2019-05-21] MEDS: ascorbic acid 500mg tablet PO SCH (09:07)
[2019-05-21] MEDS: lactobacillus rhamnosus 10,000 MMU CELLS/CAPSULE PO SCH (09:07)
[2019-05-21] MEDS: multivitamins, therapeutics tablet PO SCH (09:07)
--- NOTE | 2019-05-21 11:31 | NUR ---
PATIENT STABLE AND APPROPRIATE FOR DISCHARGED, IV TAKEN OUT, ALL BELONGINGS SENT WITH PATIENT, TAKEN DOWN TO LOBBY IN WHEEL CHAIR WHERE PATIENT LEFT IN PERSONAL CAR
[2019-05-21] MEDS ORDERED: VANCOMYCIN LEVEL IV ONE (20:30)
== END 2019-05-21 10:00 | disposition home or self-care (01) | DRG 854 ==
LOC: ER 10:19 → ED HOLD 12:27 → EDBEDREQ 13:00 → SUR 3N 14:00 → PAS IN 05-16 13:00 → SUR 3N 05-16 15:29
PROVIDERS: ADMIT Internal Medicine; ATTEND Internal Medicine
PROC: 0JBG0ZZ Excision of Right Lower Arm Subcutaneous Tissue and Fascia, Open Approach (ICD-10-PCS; 2019-05-16)
PROC: 0JBG0ZZ Excision of Right Lower Arm Subcutaneous Tissue and Fascia, Open Approach (ICD-10-PCS; 2019-05-16)
PROC: 0JBG0ZZ Excision of Right Lower Arm Subcutaneous Tissue and Fascia, Open Approach (ICD-10-PCS; principal; 2019-05-16 13:11)
DX: A41.9 Sepsis, unspecified organism (principal); L03.113 Cellulitis of right upper limb; K51.90 Ulcerative colitis, unspecified, without complications; L02.511 Cutaneous abscess of right hand; R74.0 Nonspecific elevation of levels of transaminase and lactic acid dehydrogenase [LDH]; B95.8 Unspecified staphylococcus as the cause of diseases classified elsewhere; I73.9 Peripheral vascular disease, unspecified; D64.9 Anemia, unspecified; I80.8 Phlebitis and thrombophlebitis of other sites; E87.6 Hypokalemia; Z89.512 Acquired absence of left leg below knee; Z86.718 Personal history of other venous thrombosis and embolism; Z79.899 Other long term (current) drug therapy
CPT/HCPCS: 96365; 96375; 99285; Z7506; 36415; 73200; 80053; 80202; 80305; 81001; 83605; 83735; 84132; 84145; 85025; 87040; 87070; 87075; 87077; 87081; 87102; 87186; 93971; A4618; A6223; A6446; A6449; A7000; G0378; J1170; J2175; J2250; J2270; J2543; J2704; J3010; J3370; J3480; J7120; Q9967

== ENCOUNTER 2019-05-22 08:30 | Day surgery (SDC) | payer BC ==
[~2019-05-22 08:30] MED LIST changes: -APIX5TAB3 PO; +ASCO500C15 PO; -ASPI-1071 PO; -GABA-534 PO; -GABA300C PO; +HYDR-3972 PO; +MULT-933 PO; -PANT40TA4 PO; +SULF1TAB49 PO
[2019-05-22] MEDS ORDERED: LIDOcaine 2% 5ml jelly ONE (09:56)
== END 2019-05-22 11:14 | disposition home or self-care (01) ==
LOC: WOUND CARE 08:30
PROVIDERS: ATTEND Surgery
DX: T81.89XA Other complications of procedures, not elsewhere classified, initial encounter (principal); S61.501A Unspecified open wound of right wrist, initial encounter; S61.502A Unspecified open wound of left wrist, initial encounter; S89.81XA Other specified injuries of right lower leg, initial encounter; L98.492 Non-pressure chronic ulcer of skin of other sites with fat layer exposed; I73.9 Peripheral vascular disease, unspecified; Z89.512 Acquired absence of left leg below knee; Z79.899 Other long term (current) drug therapy; Z86.718 Personal history of other venous thrombosis and embolism; X58.XXXA Exposure to other specified factors, initial encounter; Y83.8 Other surgical procedures as the cause of abnormal reaction of the patient, or of later complication, without mention of misadventure at the time of the procedure; Y93.89 Activity, other specified; Y92.89 Other specified places as the place of occurrence of the external cause; Y99.8 Other external cause status
CPT/HCPCS: 97597; A4663; A6021; A6196; A6446

== ENCOUNTER 2019-05-27 08:42 | Day surgery (SDC) | payer BC ==
[~2019-05-27 08:42] MED LIST changes: -SULF1TAB49 PO
[2019-05-27] MEDS ORDERED: LIDOcaine 2% 5ml jelly ONE (09:10)
== END 2019-05-27 10:38 | disposition home or self-care (01) ==
LOC: WOUND CARE 08:42
PROVIDERS: ATTEND Surgery
DX: T81.89XD Other complications of procedures, not elsewhere classified, subsequent encounter (principal); L98.492 Non-pressure chronic ulcer of skin of other sites with fat layer exposed; S61.501D Unspecified open wound of right wrist, subsequent encounter; S61.502D Unspecified open wound of left wrist, subsequent encounter; S89.81XD Other specified injuries of right lower leg, subsequent encounter; I73.9 Peripheral vascular disease, unspecified; Z89.512 Acquired absence of left leg below knee; Z79.899 Other long term (current) drug therapy; Z86.718 Personal history of other venous thrombosis and embolism; X58.XXXD Exposure to other specified factors, subsequent encounter; Y83.8 Other surgical procedures as the cause of abnormal reaction of the patient, or of later complication, without mention of misadventure at the time of the procedure
CPT/HCPCS: 97597; 97598; A4663; A6021; A6154; A6446

== ENCOUNTER 2019-06-03 09:00 | Day surgery (SDC) | payer BC | END 2019-06-03 10:44 | disposition home or self-care (01) | LOC: WOUND CARE 09:00 | PROVIDERS: ATTEND Surgery | DX: T81.89XD Other complications of procedures, not elsewhere classified, subsequent encounter (principal); L98.492 Non-pressure chronic ulcer of skin of other sites with fat layer exposed; S61.501D Unspecified open wound of right wrist, subsequent encounter; S61.502D Unspecified open wound of left wrist, subsequent encounter; S89.81XD Other specified injuries of right lower leg, subsequent encounter; I73.9 Peripheral vascular disease, unspecified; Z89.512 Acquired absence of left leg below knee; Z79.899 Other long term (current) drug therapy; Z86.718 Personal history of other venous thrombosis and embolism; X58.XXXD Exposure to other specified factors, subsequent encounter; Y83.8 Other surgical procedures as the cause of abnormal reaction of the patient, or of later complication, without mention of misadventure at the time of the procedure | CPT/HCPCS: 97597; 97598; A4663; A6154; A6196; A6446 ==

== ENCOUNTER 2019-06-10 09:00 | Day surgery (SDC) | payer BC ==
[2019-06-10] MEDS ORDERED: LIDOcaine 2% 5ml jelly ONE (09:38)
== END 2019-06-10 11:33 | disposition home or self-care (01) ==
LOC: WOUND CARE 09:00
PROVIDERS: ATTEND Surgery
DX: T81.89XD Other complications of procedures, not elsewhere classified, subsequent encounter (principal); L98.492 Non-pressure chronic ulcer of skin of other sites with fat layer exposed; S61.501D Unspecified open wound of right wrist, subsequent encounter; S61.502D Unspecified open wound of left wrist, subsequent encounter; S89.81XD Other specified injuries of right lower leg, subsequent encounter; I73.9 Peripheral vascular disease, unspecified; Z89.512 Acquired absence of left leg below knee; Z79.899 Other long term (current) drug therapy; Z86.718 Personal history of other venous thrombosis and embolism; X58.XXXD Exposure to other specified factors, subsequent encounter; Y83.8 Other surgical procedures as the cause of abnormal reaction of the patient, or of later complication, without mention of misadventure at the time of the procedure
CPT/HCPCS: 97597; A4663; A6021; A6154; A6446

== ENCOUNTER 2019-06-17 08:50 | Day surgery (SDC) | payer BC ==
[2019-06-17] MEDS ORDERED: LIDOcaine 2% 5ml jelly ONE (09:24)
== END 2019-06-17 10:36 | disposition home or self-care (01) ==
LOC: WOUND CARE 08:50
PROVIDERS: ATTEND Surgery
DX: T81.89XD Other complications of procedures, not elsewhere classified, subsequent encounter (principal); L98.492 Non-pressure chronic ulcer of skin of other sites with fat layer exposed; S61.501D Unspecified open wound of right wrist, subsequent encounter; S61.502D Unspecified open wound of left wrist, subsequent encounter; S89.81XD Other specified injuries of right lower leg, subsequent encounter; I73.9 Peripheral vascular disease, unspecified; Z89.512 Acquired absence of left leg below knee; Z79.899 Other long term (current) drug therapy; Z86.718 Personal history of other venous thrombosis and embolism; X58.XXXD Exposure to other specified factors, subsequent encounter; Y83.8 Other surgical procedures as the cause of abnormal reaction of the patient, or of later complication, without mention of misadventure at the time of the procedure
CPT/HCPCS: 97597; A4663; A6021; A6154; A6212

== ENCOUNTER 2019-06-24 08:50 | Day surgery (SDC) | payer BC ==
[2019-06-24] MEDS ORDERED: LIDOcaine/PRILOcaine 5gm cream TP ONE (09:28)
== END 2019-06-24 11:05 | disposition home or self-care (01) ==
LOC: WOUND CARE 08:50
PROVIDERS: ATTEND Surgery
DX: T81.89XD Other complications of procedures, not elsewhere classified, subsequent encounter (principal); L98.492 Non-pressure chronic ulcer of skin of other sites with fat layer exposed; I73.9 Peripheral vascular disease, unspecified; Z89.512 Acquired absence of left leg below knee; Z79.899 Other long term (current) drug therapy; Z86.718 Personal history of other venous thrombosis and embolism; Y83.8 Other surgical procedures as the cause of abnormal reaction of the patient, or of later complication, without mention of misadventure at the time of the procedure
CPT/HCPCS: 73090; 97597; A4663; A6021; A6154; A6212

== ENCOUNTER 2019-07-01 09:30 | Day surgery (SDC) | payer BC ==
[2019-07-01] MEDS ORDERED: LIDOcaine 2% 5ml jelly ONE (10:51)
== END 2019-07-01 11:25 | disposition home or self-care (01) ==
LOC: WOUND CARE 09:30
PROVIDERS: ATTEND Surgery
DX: T81.89XD Other complications of procedures, not elsewhere classified, subsequent encounter (principal); L98.492 Non-pressure chronic ulcer of skin of other sites with fat layer exposed; I73.9 Peripheral vascular disease, unspecified; Z89.512 Acquired absence of left leg below knee; Z79.899 Other long term (current) drug therapy; Z86.718 Personal history of other venous thrombosis and embolism; Y83.8 Other surgical procedures as the cause of abnormal reaction of the patient, or of later complication, without mention of misadventure at the time of the procedure
CPT/HCPCS: 97597; A4663; A6212

== ENCOUNTER 2020-06-01 13:21 | Outpatient (CLI) | payer BC ==
[~2020-06-01 13:21] MED LIST changes: -ASCO500C15 PO; +ASCO500C18 PO
[2020-06-01 15:28] LABS: ALANINE AMINOTRANSFERASE 24 U/L (12-78); ALBUMIN 3.2 G/DL (3.4-5.0); ALBUMIN/GLOBULIN RATIO 0.6 (1.1-1.5); ALKALINE PHOSPHATASE 190 IU/L (46-116); ANION GAP 13 (8-16); ASPARTATE AMINO TRANSFERASE 22 U/L (10-37); BILIRUBIN,TOTAL 0.5 MG/DL (0.1-1.0); BLOOD UREA NITROGEN 10 MG/DL (7-18); BUN/CREATININE RATIO 14.3 (5.4-32.0); CALCIUM 8.9 MG/DL (8.5-10.1); CHLORIDE 104 MMOL/L (99-107); GLUCOSE 94 MG/DL (70-104); POTASSIUM 3.8 MMOL/L (3.5-5.1); SODIUM 142 MMOL/L (135-145); TOTAL CARBON DIOXIDE 24.6 MMOL/L (24-32); TOTAL PROTEIN 8.5 G/DL (6.4-8.2); eGFR > 90 ML/MIN
== END 2020-06-01 23:59 | disposition home or self-care (01) ==
LOC: WOUND CARE 13:21
PROVIDERS: ATTEND Nurse Practitioner Family
DX: T87.89 Other complications of amputation stump (principal); L89.894 Pressure ulcer of other site, stage 4; L89.890 Pressure ulcer of other site, unstageable; I73.9 Peripheral vascular disease, unspecified; Z89.512 Acquired absence of left leg below knee; Z79.899 Other long term (current) drug therapy; Z87.442 Personal history of urinary calculi; Z86.718 Personal history of other venous thrombosis and embolism; Y83.5 Amputation of limb(s) as the cause of abnormal reaction of the patient, or of later complication, without mention of misadventure at the time of the procedure
CPT/HCPCS: 36415; 73560; 80053; G0463

== ENCOUNTER 2020-06-08 10:33 | Outpatient (CLI) | payer BC ==
[2020-06-08] MEDS ORDERED: LIDOcaine 2% 5ml jelly ONE (10:54)
[2020-06-08] MEDS ORDERED: iohexol 350MG/ML 100ml bottle IV ONE (12:12)
== END 2020-06-08 23:59 | disposition home or self-care (01) ==
LOC: WOUND CARE 10:33
PROVIDERS: ATTEND Nurse Practitioner Family
DX: T87.89 Other complications of amputation stump (principal); L89.894 Pressure ulcer of other site, stage 4; L89.890 Pressure ulcer of other site, unstageable; I73.9 Peripheral vascular disease, unspecified; Z89.512 Acquired absence of left leg below knee; Z79.899 Other long term (current) drug therapy; Z87.442 Personal history of urinary calculi; Z86.718 Personal history of other venous thrombosis and embolism; Y83.5 Amputation of limb(s) as the cause of abnormal reaction of the patient, or of later complication, without mention of misadventure at the time of the procedure
CPT/HCPCS: 75635; G0463; Q9967

== ENCOUNTER 2020-06-10 08:44 | Inpatient (IN) | payer BC ==
[~2020-06-10] VITALS: Ht 175.3 cm; Wt 78.4 kg
[2020-06-10] MEDS ORDERED: morphine 4 MG/ML inj SYRINge IV ONE ×2 (10:25→12:45)
[2020-06-10 10:44] LABS: BASOPHILS # (AUTO) 0.1 X10'3 (0-0.2); EOSINOPHILS # (AUTO) 0.1 X10'3 (0-0.9); EOSINOPHILS % (AUTO) 0.8 % (0-6); MEAN PLATELET VOLUME 7.3 FL (7.4-10.4)
[2020-06-10 10:45] LABS: BASOPHILS % (AUTO) 1.4 % (0-1); HEMATOCRIT 26.7 % (42.0-52.0); HEMOGLOBIN 7.9 g/dl (14.0-17.9); LYMPHOCYTES # (AUTO) 1.7 X10'3 (1.1-4.8); LYMPHOCYTES % (AUTO) 21.2 % (21-51); MEAN CORPUSCULAR HEMOGLOBIN 19.1 PG (27.0-31.0); MEAN CORPUSCULAR HGB CONC 29.7 g/dL (33.0-36.5); MEAN CORPUSCULAR VOLUME 64.3 FL (78-98); MONOCYTES # (AUTO) 0.9 X10'3 (0-0.9); MONOCYTES % (AUTO) 11.4 % (2-12); NEUTROPHILS # (AUTO) 5.2 X10'3 (1.8-7.7); NEUTROPHILS % (AUTO) 65.2 % (42-75); PLATELET COUNT 680 X10'3 (140-440); RED BLOOD COUNT 4.16 X10'6 (4.70-6.10); RED CELL DISTRIBUTION WIDTH 22.5 % (11.5-14.5)
[2020-06-10 10:53] LABS: PARTIAL THROMBOPLASTIN TIME 22 SECONDS (22-32)
[2020-06-10 10:54] LABS: ALANINE AMINOTRANSFERASE 24 U/L (12-78); ALBUMIN 3.1 G/DL (3.4-5.0); ALBUMIN/GLOBULIN RATIO 0.6 (1.1-1.5); ALKALINE PHOSPHATASE 184 IU/L (46-116); ANION GAP 8 (8-16); ASPARTATE AMINO TRANSFERASE 14 U/L (10-37); BILIRUBIN,TOTAL 0.5 MG/DL (0.1-1.0); BLOOD UREA NITROGEN 12 MG/DL (7-18); BUN/CREATININE RATIO 17.4 (5.4-32.0); CHLORIDE 101 MMOL/L (99-107); CREATININE 0.69 MG/DL (0.60-1.10); GLUCOSE 93 MG/DL (70-104); POTASSIUM 3.7 MMOL/L (3.5-5.1); SODIUM 135 MMOL/L (135-145); TOTAL CARBON DIOXIDE 25.9 MMOL/L (24-32); TOTAL PROTEIN 8.3 G/DL (6.4-8.2); eGFR > 90 ML/MIN
[2020-06-10 11:12] LABS: ANISOCYTOSIS 3+; LARGE PLATELETS FEW; MICROCYTOSIS 2+; PLATELET ESTIMATE INCREASED
[2020-06-10 11:13] LABS: HYPOCHROMASIA 2+; STOMATOCYTES FEW
--- NOTE | 2020-06-10 12:40 | NUR ---
PT C/O LEFT LEG PAIN ON SCALE 8/10. INFORMED DR. PORTILLO, PLEASE SEE NEW ORDERS.
[2020-06-10] MEDS ORDERED: heparin 10,000 units/1 ML INJ IV ONE ×2 (15:00→15:20)
[2020-06-10] MEDS: heparin 25,000 UNIT/250ml bag 250 ML IV SCH (16:03)
[2020-06-10] MEDS ORDERED: morphine 2 MG/ML inj. syringe IV PRN ×2 (16:10)
[2020-06-10] MEDS ORDERED: magnesium Cl slow-release 64mg tablet PO PRN (16:10)
[2020-06-10] MEDS ORDERED: ondansetron/PF 4mg/2ml inj IV PRN (16:10)
[2020-06-10] MEDS ORDERED: bisacodyl 10mg suppository rectal RC PRN (16:10)
[2020-06-10] MEDS ORDERED: acetaminophen 650mg rectal suppository RC PRN (16:10)
[2020-06-10] MEDS ORDERED: potassium CL 10mEq/100ml bag 100 ML IV PRN ×2 (16:10)
[2020-06-10] MEDS ORDERED: metoclopramide 5 mg/ml inj IV PRN (16:10)
[2020-06-10] MEDS ORDERED: magnesium 4gm in 100ml NS 100 ML IV PRN (16:10)
[2020-06-10] MEDS ORDERED: mag hydrox/Alum hydrox/simeth 30ml oral suspension PO PRN (16:10)
[2020-06-10] MEDS ORDERED: potassium Cl 20 mEq SR tablet PO PRN (16:10)
[2020-06-10] MEDS ORDERED: magnesium hydroxide 30ml (MOM) UD suspension PO PRN (16:10)
[2020-06-10] MEDS ORDERED: HYDROcodone/acetaminophen 5mg/325mg tablet PO PRN (16:10)
[2020-06-10] MEDS ORDERED: diphenhydrAMINE 50 mg/ml inj IV PRN (16:10)
[2020-06-10] MEDS ORDERED: magnesium 2GM in 50ml NS 50 ML IV PRN (16:10)
[2020-06-10] MEDS ORDERED: acetaminophen 325mg tablet PO PRN (16:10)
[2020-06-10] MEDS ORDERED: HYDROcodone/acetaminophen 10/325mg tab PO PRN (16:10)
[2020-06-10] MEDS ORDERED: NO HOME MEDS (16:47)
[2020-06-10 17:27] LABS: HEMOGLOBIN A1C 5.1 % (4.5-6.2)
[2020-06-10 17:29] LABS: % IRON SATURATION 4 % (11-46); IRON 21 UG/DL (53-167); TOTAL IRON BINDING CAPACITY 517 UG/DL (259-388)
[2020-06-10] MEDS: pantoprazole 40 MG vial IV SCH ×2 (17:38→19:12)
[2020-06-10] MEDS: sodium ferric gluc complex inj 125 MG in normal saline 100ml IV soln 90 ML IV SCH (18:16)
--- NOTE | 2020-06-10 18:30 | NUR ---
IPA 317B. PT REPORTS HE IS HUNGRY. DINNER TRAY REQUESTED AND PT UPDATED OF THIS. CNTINUES ON HEPARIN GTT AND IRON GTT. PTS PAIN IS 6 OUT OF 10.
--- NOTE | 2020-06-10 18:35 | NUR ---
Patient arrived via gurney and slid himself over to the other bed. On room air. In no apparent distress. Requesting pain medications and dinner. Will assess, admit and orient.
[2020-06-10 19:00] VITALS: BP 157/94
[2020-06-10] MEDS: normal saline 1000ml 1,000 ML IV SCH (19:13)
[2020-06-10] MEDS: K and/or MAG REPLACEMENT MC SCH (19:32)
[2020-06-10] MEDS ORDERED: CADD PCA waste documentation MC PRN (19:35)
[2020-06-10] MEDS ORDERED: naloxone 0.4 mg/ml inj IV PRN (19:35)
[2020-06-10] MEDS: HYDROmorphone/NS 1 mg/ml CADD 50 ML IV SCH ×3 (20:30→23:00)
[2020-06-10] MEDS ORDERED: temazepam 15mg capsule PO PRN (21:00)
[2020-06-10 22:00] VITALS: BP 141/90
[2020-06-11] MEDS: HYDROmorphone/NS 1 mg/ml CADD 50 ML IV SCH ×12 (01:00→22:52)
[2020-06-11 02:00] VITALS: BP 127/77
[2020-06-11 02:15] LABS: WHITE BLOOD COUNT 8.1 X10'3 (4.5-11.0)
[2020-06-11 02:17] LABS: HEMATOCRIT 23.4 % (42.0-52.0); MEAN CORPUSCULAR HGB CONC 29.8 g/dL (33.0-36.5); MEAN CORPUSCULAR VOLUME 63.8 FL (78-98); MEAN PLATELET VOLUME 7.6 FL (7.4-10.4); PLATELET COUNT 570 X10'3 (140-440); RED BLOOD COUNT 3.67 X10'6 (4.70-6.10); RED CELL DISTRIBUTION WIDTH 21.9 % (11.5-14.5)
[2020-06-11 02:19] LABS: ALANINE AMINOTRANSFERASE 19 U/L (12-78); ALBUMIN 2.6 G/DL (3.4-5.0); ALBUMIN/GLOBULIN RATIO 0.6 (1.1-1.5); ALKALINE PHOSPHATASE 163 IU/L (46-116); ANION GAP 10 (8-16); ASPARTATE AMINO TRANSFERASE 10 U/L (10-37); BILIRUBIN,TOTAL 0.3 MG/DL (0.1-1.0); BLOOD UREA NITROGEN 14 MG/DL (7-18); BUN/CREATININE RATIO 19.7 (5.4-32.0); CALCIUM 8.8 MG/DL (8.5-10.1); CHLORIDE 102 MMOL/L (99-107); CHOL/HDL RATIO 2.1 (0.00-4.99); CHOLESTEROL 156 MG/DL (0-200); CREATININE 0.71 MG/DL (0.60-1.10); GLUCOSE 99 MG/DL (70-104); HDL CHOLESTEROL 75 MG/DL (35-60); LDL CHOLESTEROL 68 MG/DL (50-100); MAGNESIUM 2.2 MG/DL (1.5-2.4); PHOSPHORUS 4.2 MG/DL (2.3-4.5); POTASSIUM 3.4 MMOL/L (3.5-5.1); SODIUM 136 MMOL/L (135-145); TOTAL CARBON DIOXIDE 23.8 MMOL/L (24-32); TOTAL PROTEIN 7.1 G/DL (6.4-8.2); TRIGLYCERIDES 62 MG/DL (20-135); eGFR > 90 ML/MIN
[2020-06-11 02:32] LABS: PLATELET ESTIMATE INCREASED; TOTAL CELLS COUNTED 100
[2020-06-11 02:33] LABS: ANISOCYTOSIS 3+; HYPOCHROMASIA 2+; MICROCYTOSIS 2+; STOMATOCYTES 1+
[2020-06-11] MEDS: heparin 10,000 units/1 ML INJ IV PRN (02:46)
[2020-06-11] MEDS: normal saline 1000ml 1,000 ML IV SCH ×3 (04:58→15:43)
[2020-06-11 06:00] VITALS: BP 133/63
--- NOTE | 2020-06-11 06:29 | NUR ---
Reported off to Michell RHOADES. Patient is resting with relaxed and unlabored respirations on RA. Call light and items of frequent use within reach.
--- NOTE | 2020-06-11 06:30 | NUR ---
Patient in room MED 317. I have received report from Beth RHOADES and had the opportunity to ask questions and assume patient care.
[2020-06-11] MEDS: K and/or MAG REPLACEMENT MC SCH ×2 (08:00→20:00)
[2020-06-11] MEDS: pantoprazole 40 MG vial IV SCH (09:08)
[2020-06-11] MEDS: potassium Cl 20 mEq SR tablet PO PRN ×3 (09:08→20:59)
[2020-06-11] MEDS: heparin 25,000 UNIT/250ml bag 250 ML IV SCH (09:57)
[2020-06-11] MEDS ORDERED: FLU VACC QS2020-21(6MOS UP)/PF 60 MCG/0.5 ML SYRINGE IMVAC ONE (10:00)
[2020-06-11 11:00] VITALS: BP 127/79
[2020-06-11] MEDS: sodium ferric gluc complex inj 125 MG in normal saline 100ml IV soln 90 ML IV SCH (11:06)
[2020-06-11 15:00] VITALS: BP 126/79
[2020-06-11 15:00] LABS: CLARITY,URINE SLIGHTLY CLOUDY (Clear); COLOR,URINE YELLOW (Yellow); GLUCOSE, URINE NEGATIVE (Neg); KETONES,URINE NEGATIVE (Neg); LEUKOCYTE ESTERASE ,URINE NEGATIVE (Neg); NITRITES, URINE NEGATIVE (Neg); OCCULT BLOOD,URINE SMALL (Neg); PH,URINE 5.5 (4.8-8.0); PROTEIN,URINE NEGATIVE (Neg); URINE AMPHETAMINE SCREEN NEGATIVE (Neg); URINE BARBITUATE SCREEN NEGATIVE (Neg); URINE BENZODIAZEPINES SCREEN NEGATIVE (Neg); URINE CANNABINOID SCREEN POSITIVE (Neg); URINE COCAINE SCREEN NEGATIVE (Neg); URINE METHADONE SCREEN NEGATIVE (Neg); URINE OPIATE SCREEN POSITIVE (Neg); URINE PHENCYCLIDINE SCREEN NEGATIVE (Neg)
[2020-06-11 15:29] LABS: MUCUS STRANDS MANY /LPF (Neg); SQUAMOUS EPITHELIAL CELL,UR FEW /LPF (FEW); UA COLLECTION TYPE NON-SPECIFIED
[2020-06-11 15:30] LABS: BACTERIA,URINE FEW /HPF (Neg); RBC,URINE 0-2 /HPF (0-2)
--- NOTE | 2020-06-11 18:30 | NUR ---
Problems reprioritized. Patient report given, questions answered & plan of care reviewed with Zulema RHOADES.
[2020-06-11] MEDS: pantoprazole 40mg Tablet.DR PO SCH (20:59)
[2020-06-11 22:30] VITALS: BP 138/84
[2020-06-12] VITALS (15 sets, daily range): BP systolic 121–158; BP diastolic 66–93
[2020-06-12] MEDS: heparin 10,000 units/1 ML INJ IV PRN ×2 (00:05→21:18)
[2020-06-12] MEDS: HYDROmorphone/NS 1 mg/ml CADD 50 ML IV SCH ×11 (01:00→23:00)
[2020-06-12] MEDS: heparin 25,000 UNIT/250ml bag 250 ML IV SCH ×3 (01:46→21:23)
--- NOTE | 2020-06-12 06:30 | NUR ---
Patient in room MED 317. I have received report from Zulema RHOADES and had the opportunity to ask questions and assume patient care.
--- NOTE | 2020-06-12 06:34 | NUR ---
Problems reprioritized. Patient report given, questions answered & plan of care reviewed with Michell RHOADES.
[2020-06-12 06:47] LABS: BASOPHILS # (AUTO) 0.1 X10'3 (0-0.2); BASOPHILS % (AUTO) 0.8 % (0-1); EOSINOPHILS # (AUTO) 0.2 X10'3 (0-0.9); HEMATOCRIT 23.6 % (42.0-52.0); LYMPHOCYTES # (AUTO) 1.8 X10'3 (1.1-4.8); LYMPHOCYTES % (AUTO) 21.3 % (21-51); MEAN CORPUSCULAR HEMOGLOBIN 18.4 PG (27.0-31.0); MEAN CORPUSCULAR HGB CONC 28.6 g/dL (33.0-36.5); MEAN CORPUSCULAR VOLUME 64.3 FL (78-98); MONOCYTES # (AUTO) 0.8 X10'3 (0-0.9); MONOCYTES % (AUTO) 9.6 % (2-12); NEUTROPHILS # (AUTO) 5.7 X10'3 (1.8-7.7); NEUTROPHILS % (AUTO) 66.3 % (42-75); PLATELET COUNT 586 X10'3 (140-440); RED BLOOD COUNT 3.67 X10'6 (4.70-6.10); RED CELL DISTRIBUTION WIDTH 21.9 % (11.5-14.5); WHITE BLOOD COUNT 8.6 X10'3 (4.5-11.0)
[2020-06-12 06:51] LABS: HEMOGLOBIN 6.8 g/dl (14.0-17.9)
[2020-06-12 07:02] LABS: ALANINE AMINOTRANSFERASE 20 U/L (12-78); ALBUMIN 2.5 G/DL (3.4-5.0); ALBUMIN/GLOBULIN RATIO 0.6 (1.1-1.5); ALKALINE PHOSPHATASE 144 IU/L (46-116); ANION GAP 8 (8-16); ASPARTATE AMINO TRANSFERASE 12 U/L (10-37); BILIRUBIN,TOTAL 0.2 MG/DL (0.1-1.0); BLOOD UREA NITROGEN 5 MG/DL (7-18); BUN/CREATININE RATIO 8.5 (5.4-32.0); CALCIUM 8.8 MG/DL (8.5-10.1); CHLORIDE 102 MMOL/L (99-107); CREATININE 0.59 MG/DL (0.60-1.10); GLUCOSE 95 MG/DL (70-104); MAGNESIUM 2.1 MG/DL (1.5-2.4); PHOSPHORUS 3.8 MG/DL (2.3-4.5); POTASSIUM 3.6 MMOL/L (3.5-5.1); SODIUM 135 MMOL/L (135-145); TOTAL CARBON DIOXIDE 24.9 MMOL/L (24-32); eGFR > 90 ML/MIN
--- NOTE | 2020-06-12 07:07 | NUR ---
317 L. Merry [place]. Pt has a critical Hgb at 6.8 Hct is 23.6 [id number] [facility] Thank you To Dr Marin
[2020-06-12 08:00] LABS: ANISOCYTOSIS 3+; HYPOCHROMASIA 1+; MICROCYTOSIS 2+; PLATELET ESTIMATE INCREASED; POIKILOCYTOSIS FEW; POLYCHROMASIA FEW; STOMATOCYTES 1+
[2020-06-12 09:09] LABS: MEAN CORPUSCULAR HEMOGLOBIN 18.6 PG (27.0-31.0); MEAN CORPUSCULAR HGB CONC 28.9 g/dL (33.0-36.5); MEAN CORPUSCULAR VOLUME 64.5 FL (78-98); MEAN PLATELET VOLUME 7.6 FL (7.4-10.4)
[2020-06-12 09:10] LABS: HEMATOCRIT 23.8 % (42.0-52.0); PLATELET COUNT 602 X10'3 (140-440); RED BLOOD COUNT 3.69 X10'6 (4.70-6.10); RED CELL DISTRIBUTION WIDTH 22.6 % (11.5-14.5); WHITE BLOOD COUNT 8.7 X10'3 (4.5-11.0)
[2020-06-12] MEDS: pantoprazole 40mg Tablet.DR PO SCH ×2 (09:14→20:37)
[2020-06-12 09:25] LABS: HEMOGLOBIN 6.9 g/dl (14.0-17.9)
--- NOTE | 2020-06-12 11:32 | NUR ---
317 [facility] said per hospital protocol they cannot give any other pain meds while pt is on CADD pump but we can use the titration of the Dilaulid CADD protocol while I will do. Thanks Michell [phone] Dr Marin after he stated pt could take [place] or IV Ms for breakthrough pain.
--- NOTE | 2020-06-12 11:40 | NUR ---
1140 cHARGE NURSE AND PT'S NURSE changed dose for titrating up per protocol and had technical entering it settings into Emar. Per protocol due to patients pain being greater a 7/10- 2 hours consistently dose of his demand rate up to 0.30 from 0.20. Will continue to monitor.
--- NOTE | 2020-06-12 13:55 | NUR ---
Pt has been scratching,picking and squeezing, the arterial ulcers on his L stump. He picked of the top of the necrotic skin and there is a visible hole in it. Found pt scratching L stump with a hair brush on other areas. Instructed pt to not mess with the ulcer and told him it was not a good idea to treat the skin on the stump areas harshly. He stated understanding and stated he would try but stated his L stump itches a lot. Wound care consult placed.
[2020-06-12] MEDS: diphenhydrAMINE 25mg capsule PO PRN (15:21)
[2020-06-12] MEDS: normal saline 1000ml 1,000 ML IV SCH ×2 (16:19→18:10)
[2020-06-12] MEDS: K and/or MAG REPLACEMENT MC SCH (20:00)
[2020-06-13] MEDS: normal saline 1000ml 1,000 ML IV SCH
[2020-06-13] MEDS: HYDROmorphone/NS 1 mg/ml CADD 50 ML IV SCH ×8 (01:00→23:00)
[2020-06-13 02:00] VITALS: BP 150/89
[2020-06-13 03:50] LABS: MEAN PLATELET VOLUME 7.3 FL (7.4-10.4)
[2020-06-13 03:52] LABS: BASOPHILS # (AUTO) 0.2 X10'3 (0-0.2); BASOPHILS % (AUTO) 1.7 % (0-1); EOSINOPHILS # (AUTO) 0.1 X10'3 (0-0.9); EOSINOPHILS % (AUTO) 1.4 % (0-6); HEMATOCRIT 28.7 % (42.0-52.0); HEMOGLOBIN 8.8 g/dl (14.0-17.9); LYMPHOCYTES # (AUTO) 1.9 X10'3 (1.1-4.8); LYMPHOCYTES % (AUTO) 19.7 % (21-51); MEAN CORPUSCULAR HGB CONC 30.6 g/dL (33.0-36.5); MEAN CORPUSCULAR VOLUME 68.6 FL (78-98); MONOCYTES # (AUTO) 0.9 X10'3 (0-0.9); NEUTROPHILS # (AUTO) 6.7 X10'3 (1.8-7.7); NEUTROPHILS % (AUTO) 68.2 % (42-75); PLATELET COUNT 550 X10'3 (140-440); RED BLOOD COUNT 4.19 X10'6 (4.70-6.10); RED CELL DISTRIBUTION WIDTH 26.5 % (11.5-14.5); WHITE BLOOD COUNT 9.8 X10'3 (4.5-11.0)
[2020-06-13 04:08] LABS: ALANINE AMINOTRANSFERASE 27 U/L (12-78); ALBUMIN 2.7 G/DL (3.4-5.0); ALBUMIN/GLOBULIN RATIO 0.6 (1.1-1.5); ALKALINE PHOSPHATASE 169 IU/L (46-116); ANION GAP 5 (8-16); ASPARTATE AMINO TRANSFERASE 24 U/L (10-37); BILIRUBIN,TOTAL 0.5 MG/DL (0.1-1.0); BLOOD UREA NITROGEN 4 MG/DL (7-18); BUN/CREATININE RATIO 5.2 (5.4-32.0); CALCIUM 9.5 MG/DL (8.5-10.1); CHLORIDE 102 MMOL/L (99-107); CREATININE 0.77 MG/DL (0.60-1.10); GLUCOSE 101 MG/DL (70-104); MAGNESIUM 2.1 MG/DL (1.5-2.4); PHOSPHORUS 4.3 MG/DL (2.3-4.5); POTASSIUM 3.9 MMOL/L (3.5-5.1); SODIUM 133 MMOL/L (135-145); TOTAL CARBON DIOXIDE 26.3 MMOL/L (24-32); TOTAL PROTEIN 7.3 G/DL (6.4-8.2); eGFR > 90 ML/MIN
[2020-06-13] MEDS: heparin 25,000 UNIT/250ml bag 250 ML IV SCH ×2 (05:04→20:42)
[2020-06-13] MEDS: heparin 10,000 units/1 ML INJ IV PRN (05:06)
[2020-06-13 06:00] VITALS: BP 136/87
--- NOTE | 2020-06-13 06:57 | NUR ---
Problems reprioritized. Patient report given, questions answered & plan of care reviewed with Pat RN.
[2020-06-13 07:36] LABS: PLATELET ESTIMATE INCREASED
[2020-06-13 07:37] LABS: ANISOCYTOSIS 3+; HYPOCHROMASIA 1+; MICROCYTOSIS 2+; POIKILOCYTOSIS FEW; POLYCHROMASIA 1+
[2020-06-13] MEDS: sodium ferric gluc complex inj 125 MG in normal saline 100ml IV soln 90 ML IV SCH ×2 (08:00→10:03)
[2020-06-13] MEDS: K and/or MAG REPLACEMENT MC SCH ×2 (08:00→20:00)
[2020-06-13] MEDS: pantoprazole 40mg Tablet.DR PO SCH ×2 (09:29→21:02)
--- NOTE | 2020-06-13 10:49 | NUR ---
DR. FRYE PAGED: PAGER ID: [phone] MESSAGE: 317: Gitter - tpa cancelled again, no ICU beds available. can I change him to reg diet so he can get a hamburger? nurse Yoly [phone]
[2020-06-13 12:00] VITALS: BP 137/85
--- NOTE | 2020-06-13 14:02 | NUR ---
AT 1130 PTT DRAWN WITH RESULT HIGH. TURNED OFF HEPARIN, AND REQUESTED REDRAW. NOW HEPARIN REMAINS OFF DUE TO SECOND HIGH PTT. DR. TEAGUE INTO SEE PATIENT APPRISED PATIENT PROCEDURE ON HOLD UNTIL UNIT BED BECOMES AVAILABLE. Addendum: 06/13/20 at 1412 by Mary Ellen Linares RN Amended: Links added. Addendum: 06/13/20 at 1420 by Mary Ellen Linares RN RESTARTED HEPARIN GTT NOW AT 2100 PER DVT PROTOCOL.
[2020-06-13 18:00] VITALS: BP 135/84
--- NOTE | 2020-06-13 18:23 | NUR ---
Patient in room MED 317. I have received report from Vijay RHOADES and had the opportunity to ask questions and assume patient care. Addendum: 06/13/20 at 1825 by Aga Chavez RN Amended: Links added.
--- NOTE | 2020-06-13 19:50 | NUR ---
Pt. awake, sitting up in bed watching TV. On assessment pt. A & O x 4 with c/o 5/10 to rt stump; pt. on demand dose of 0.3mg i.v dilaudid. Multiple wounds to BKA region with eschar and surrounding erythema noted. Wound care provided per pt. request but per day shift nurse report, Vijay RHOADES; wound care was going to f/u. Call light within reach. Addendum: 06/14/20 at 0050 by Aga Chavez RN Amended: Links added.
[2020-06-13 22:00] VITALS: BP 145/84
[2020-06-14] MEDS: normal saline 1000ml 1,000 ML IV SCH ×4 (00:10→21:04)
[2020-06-14] MEDS: HYDROmorphone/NS 1 mg/ml CADD 50 ML IV SCH ×12 (01:00→23:22)
[2020-06-14 02:00] VITALS: BP 129/85
--- NOTE | 2020-06-14 04:41 | NUR ---
Missed 2100 and 0100 CADD pump assessment. Addendum: 06/14/20 at 0442 by Aga Chavez RN Amended: Links added.
[2020-06-14 06:00] VITALS: BP 142/84
--- NOTE | 2020-06-14 06:00 | NUR ---
Problems reprioritized. Patient report given, questions answered & plan of care reviewed with Vijay RHOADES. Addendum: 06/14/20 at 0648 by Aga Chavez RN Amended: Links added.
[2020-06-14] MEDS: K and/or MAG REPLACEMENT MC SCH ×2 (08:00→20:00)
[2020-06-14] MEDS: pantoprazole 40mg Tablet.DR PO SCH ×2 (08:19→19:33)
[2020-06-14 08:39] LABS: BASOPHILS # (AUTO) 0.1 X10'3 (0-0.2); BASOPHILS % (AUTO) 1.1 % (0-1); EOSINOPHILS # (AUTO) 0.2 X10'3 (0-0.9); EOSINOPHILS % (AUTO) 1.9 % (0-6); HEMATOCRIT 32.4 % (42.0-52.0); HEMOGLOBIN 9.9 g/dl (14.0-17.9); LYMPHOCYTES # (AUTO) 2.1 X10'3 (1.1-4.8); LYMPHOCYTES % (AUTO) 23.3 % (21-51); MEAN CORPUSCULAR HEMOGLOBIN 21.5 PG (27.0-31.0); MEAN CORPUSCULAR HGB CONC 30.4 g/dL (33.0-36.5); MEAN CORPUSCULAR VOLUME 70.5 FL (78-98); MEAN PLATELET VOLUME 7.7 FL (7.4-10.4); MONOCYTES # (AUTO) 0.9 X10'3 (0-0.9); MONOCYTES % (AUTO) 10.4 % (2-12); NEUTROPHILS # (AUTO) 5.8 X10'3 (1.8-7.7); NEUTROPHILS % (AUTO) 63.3 % (42-75); PLATELET COUNT 549 X10'3 (140-440); RED CELL DISTRIBUTION WIDTH 27.4 % (11.5-14.5); WHITE BLOOD COUNT 9.1 X10'3 (4.5-11.0)
[2020-06-14 08:53] LABS: ALANINE AMINOTRANSFERASE 79 U/L (12-78); ALBUMIN 2.9 G/DL (3.4-5.0); ALBUMIN/GLOBULIN RATIO 0.6 (1.1-1.5); ALKALINE PHOSPHATASE 246 IU/L (46-116); ANION GAP 10 (8-16); ASPARTATE AMINO TRANSFERASE 68 U/L (10-37); BILIRUBIN,TOTAL 0.4 MG/DL (0.1-1.0); BLOOD UREA NITROGEN 7 MG/DL (7-18); BUN/CREATININE RATIO 9.9 (5.4-32.0); CALCIUM 9.3 MG/DL (8.5-10.1); CHLORIDE 99 MMOL/L (99-107); CREATININE 0.71 MG/DL (0.60-1.10); GLUCOSE 121 MG/DL (70-104); MAGNESIUM 2.1 MG/DL (1.5-2.4); PHOSPHORUS 4.3 MG/DL (2.3-4.5); POTASSIUM 3.9 MMOL/L (3.5-5.1); SODIUM 134 MMOL/L (135-145); TOTAL CARBON DIOXIDE 25.5 MMOL/L (24-32); eGFR > 90 ML/MIN
[2020-06-14 09:33] LABS: HYPOCHROMASIA 2+; PLATELET ESTIMATE INCREASED; POLYCHROMASIA 2+
[2020-06-14 09:34] LABS: ANISOCYTOSIS 3+; MICROCYTOSIS 1+; STOMATOCYTES 1+; TARGET CELLS FEW
[2020-06-14 10:00] VITALS: BP 152/105
[2020-06-14] MEDS: sodium ferric gluc complex inj 125 MG in normal saline 100ml IV soln 90 ML IV SCH (10:21)
[2020-06-14] MEDS: diphenhydrAMINE 25mg capsule PO PRN (10:48)
[2020-06-14 15:00] VITALS: BP 127/76
[2020-06-14] MEDS: LORazepam 1 MG tablet PO PRN ×2 (15:28→21:46)
--- NOTE | 2020-06-14 15:28 | NUR ---
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 Pending angiogram and possible thrombolysis at this time per EMR. Pt PO 100% avg regular diet meeting needs. LBM 06/12. No nutrition concerns at this time. Will continue to monitor for additional protein needs pending WOC. Rec: 1. continue regular diet 2. routine bowel care 3. wt per rx Addendum: 06/14/20 at [address] Amended: Links added.
[2020-06-14 18:00] VITALS: BP 133/83
--- NOTE | 2020-06-14 18:00 | NUR ---
Patient in room MED 317. I have received report from Thalia RN and had the opportunity to ask questions and assume patient care.
--- NOTE | 2020-06-14 18:05 | NUR ---
patient refuses to keep on continuous pulse oximetry probe. He will use the vital machine to allow me to get his pulse oximetry when vitals are needed for 1800, 2200, and 0200.
[2020-06-14] MEDS: heparin 25,000 UNIT/250ml bag 250 ML IV SCH (18:32)
[2020-06-14 22:00] VITALS: BP 146/86
[2020-06-15] VITALS (14 sets, daily range): BP systolic 128–156; BP diastolic 80–99
[2020-06-15] MEDS: HYDROmorphone/NS 1 mg/ml CADD 50 ML IV SCH ×10 (01:00→23:00)
[2020-06-15 03:40] LABS: BASOPHILS # (AUTO) 0.2 X10'3 (0-0.2); BASOPHILS % (AUTO) 1.8 % (0-1); EOSINOPHILS # (AUTO) 0.2 X10'3 (0-0.9); EOSINOPHILS % (AUTO) 1.9 % (0-6); HEMATOCRIT 31.7 % (42.0-52.0); HEMOGLOBIN 9.7 g/dl (14.0-17.9); LYMPHOCYTES # (AUTO) 1.8 X10'3 (1.1-4.8); LYMPHOCYTES % (AUTO) 21.4 % (21-51); MEAN CORPUSCULAR HEMOGLOBIN 21.4 PG (27.0-31.0); MEAN CORPUSCULAR HGB CONC 30.5 g/dL (33.0-36.5); MEAN CORPUSCULAR VOLUME 70.1 FL (78-98); MEAN PLATELET VOLUME 7.8 FL (7.4-10.4); MONOCYTES # (AUTO) 0.9 X10'3 (0-0.9); MONOCYTES % (AUTO) 10.1 % (2-12); NEUTROPHILS # (AUTO) 5.5 X10'3 (1.8-7.7); NEUTROPHILS % (AUTO) 64.8 % (42-75); PLATELET COUNT 552 X10'3 (140-440); RED BLOOD COUNT 4.52 X10'6 (4.70-6.10); RED CELL DISTRIBUTION WIDTH 29.8 % (11.5-14.5); WHITE BLOOD COUNT 8.5 X10'3 (4.5-11.0)
[2020-06-15 03:56] LABS: ALANINE AMINOTRANSFERASE 253 U/L (12-78); ALBUMIN 2.9 G/DL (3.4-5.0); ALBUMIN/GLOBULIN RATIO 0.6 (1.1-1.5); ALKALINE PHOSPHATASE 359 IU/L (46-116); ANION GAP 9 (8-16); ASPARTATE AMINO TRANSFERASE 284 U/L (10-37); BILIRUBIN,TOTAL 0.3 MG/DL (0.1-1.0); BLOOD UREA NITROGEN 8 MG/DL (7-18); BUN/CREATININE RATIO 9.9 (5.4-32.0); CALCIUM 9.6 MG/DL (8.5-10.1); CHLORIDE 99 MMOL/L (99-107); CREATININE 0.81 MG/DL (0.60-1.10); GLUCOSE 103 MG/DL (70-104); MAGNESIUM 2.4 MG/DL (1.5-2.4); PHOSPHORUS 4.5 MG/DL (2.3-4.5); POTASSIUM 3.9 MMOL/L (3.5-5.1); SODIUM 134 MMOL/L (135-145); TOTAL CARBON DIOXIDE 25.6 MMOL/L (24-32); TOTAL PROTEIN 7.9 G/DL (6.4-8.2); eGFR > 90 ML/MIN
--- NOTE | 2020-06-15 06:00 | NUR ---
Problems reprioritized. Patient report given, questions answered & plan of care reviewed with Ginny RHOADES.
--- NOTE | 2020-06-15 06:00 | NUR ---
Received report from from Michelle. Was able to ask questions and assume care.
--- NOTE | 2020-06-15 06:00 | NUR ---
Patient in room MED 317. I have received report from Jewels/JF Morris and had the opportunity to ask questions and assume patient care.
--- NOTE | 2020-06-15 06:19 | NUR ---
Problems reprioritized. Patient report given, questions answered & plan of care reviewed with Michell RHOADES.
--- NOTE | 2020-06-15 06:25 | NUR ---
RN- documentation: I have reviewed and agree with interventions, assessments performed and documented by Edison.
[2020-06-15 06:39] LABS: ANISOCYTOSIS 3+; HYPOCHROMASIA 1+; PLATELET ESTIMATE INCREASED
[2020-06-15 06:40] LABS: MICROCYTOSIS 2+
[2020-06-15] MEDS: normal saline 1000ml 1,000 ML IV SCH ×2 (07:00→16:10)
[2020-06-15] MEDS: K and/or MAG REPLACEMENT MC SCH ×2 (08:00→20:00)
[2020-06-15] MEDS: sodium ferric gluc complex inj 125 MG in normal saline 100ml IV soln 90 ML IV SCH (08:09)
[2020-06-15] MEDS: pantoprazole 40mg Tablet.DR PO SCH ×2 (08:09→21:00)
[2020-06-15] MEDS: heparin 25,000 UNIT/250ml bag 250 ML IV SCH (08:16)
--- NOTE | 2020-06-15 09:00 | NUR ---
Patient left for IR procedure.
[2020-06-15] MEDS ORDERED: LIDOcaine 1%/PF 5ML 10 MG/ML VIAL ONE (09:23)
[2020-06-15] MEDS ORDERED: midazolam 2 mg/2 ml injection ONE (09:23)
[2020-06-15] MEDS ORDERED: fentaNYL/PF 50MCG/1 ML 2ML syringe ONE (09:23)
[2020-06-15] MEDS ORDERED: heparin 1,000 UNITS/NS 500ml 500 ML ONE (09:23)
[2020-06-15] MEDS ORDERED: iohexol 300mg/ml 100ml inj. ONE (09:23)
--- NOTE | 2020-06-15 11:00 | NUR ---
Patient still in IR procedure. unable to assess CADD pump.
[2020-06-15] MEDS ORDERED: heparin 1,000 UNITS/NS 500ml 500 ML IV SCH (11:10)
[2020-06-15] MEDS ORDERED: heparin 25,000 UNIT/250ml bag 250 ML IV SCH (12:23)
--- NOTE | 2020-06-15 13:33 | NUR ---
Student documentation: I have reviewed and agree with interventions, assessments performed and documented by JF Blanca. Student Medication Administration: For this medication-pass time frame, medication were reviewed, dispensed, administered and documented per hospital policy by JF Blanca .
[2020-06-15] MEDS ORDERED: labetalol 20mg/4ml (5mg/ml) syringe IV PRN (16:25)
--- NOTE | 2020-06-15 18:25 | NUR ---
Patient in room CICU 2014. I have received report from JF Wilson and had the opportunity to ask questions and assume patient care. Heparin gtt running at 200U/hr per order. tPa gtt infusing at 0.25mg/hr per order. These values verified with Katie RHOADES before shift change.
--- NOTE | 2020-06-15 19:32 | NUR ---
Pt arrived on the unit near 1400 with Heparin running at 200 with orders to NOT TITRATE per protocol, and TPA .50MG/ Hr to run for 6 hours and then titrate to .25MG/Hr then let run. I notified oncoming RN and changed the rate at 1800. A corrected med order was made with the help of JF Metcalf and Feliciano.
--- NOTE | 2020-06-15 19:35 | NUR ---
Problems reprioritized. Patient report given, questions answered & plan of care reviewed with JF Metcalf.
[2020-06-15] MEDS: tPA-cathflo 2mg/2ml IV flush 4 MG in normal saline 100ml IV soln 100 ML ICATH SCH (19:59)
[2020-06-15] MEDS: LORazepam 1 MG tablet PO PRN (21:00)
[2020-06-15 21:36] LABS: HEMATOCRIT 33.2 % (42.0-52.0); HEMOGLOBIN 9.9 g/dl (14.0-17.9); MEAN CORPUSCULAR HGB CONC 29.7 g/dL (33.0-36.5); MEAN CORPUSCULAR VOLUME 70.7 FL (78-98); MEAN PLATELET VOLUME 6.8 FL (7.4-10.4); PLATELET COUNT 441 X10'3 (140-440); RED CELL DISTRIBUTION WIDTH 30.9 % (11.5-14.5); WHITE BLOOD COUNT 13.7 X10'3 (4.5-11.0)
[2020-06-16] VITALS (24 sets, daily range): BP systolic 129–166; BP diastolic 80–101
--- NOTE | 2020-06-16 00:10 | NUR ---
Patient called me into the room with the c/o mid back pain. Back is inspected and there is no tenderness noted, however a large muscle spasm is noted on palpation. [facility] contacted and an order for baclofen is received. Vitals are stable at this time. Will continue to monitor patient.
[2020-06-16] MEDS: baclofen 10mg tablet PO PRN ×3 (00:48→17:11)
[2020-06-16] MEDS: HYDROmorphone/NS 1 mg/ml CADD 50 ML IV SCH ×12 (01:00→23:00)
[2020-06-16] MEDS: normal saline 1000ml 1,000 ML IV SCH ×3 (01:40→22:10)
[2020-06-16 02:26] LABS: HEMOGLOBIN 9.7 g/dl (14.0-17.9); MEAN CORPUSCULAR VOLUME 71.2 FL (78-98)
[2020-06-16 02:27] LABS: HEMATOCRIT 33.1 % (42.0-52.0); MEAN CORPUSCULAR HGB CONC 29.4 g/dL (33.0-36.5); MEAN PLATELET VOLUME 8.6 FL (7.4-10.4); PLATELET COUNT 442 X10'3 (140-440); RED BLOOD COUNT 4.65 X10'6 (4.70-6.10); RED CELL DISTRIBUTION WIDTH 30.9 % (11.5-14.5); WHITE BLOOD COUNT 11.1 X10'3 (4.5-11.0)
[2020-06-16 02:42] LABS: ALANINE AMINOTRANSFERASE 185 U/L (12-78); ALBUMIN 2.8 G/DL (3.4-5.0); ALBUMIN/GLOBULIN RATIO 0.6 (1.1-1.5); ALKALINE PHOSPHATASE 320 IU/L (46-116); ANION GAP 10 (8-16); ASPARTATE AMINO TRANSFERASE 88 U/L (10-37); BILIRUBIN,TOTAL 0.4 MG/DL (0.1-1.0); BLOOD UREA NITROGEN 7 MG/DL (7-18); BUN/CREATININE RATIO 9.2 (5.4-32.0); CALCIUM 9.6 MG/DL (8.5-10.1); CHLORIDE 97 MMOL/L (99-107); CREATININE 0.76 MG/DL (0.60-1.10); GLUCOSE 104 MG/DL (70-104); POTASSIUM 3.8 MMOL/L (3.5-5.1); SODIUM 132 MMOL/L (135-145); TOTAL CARBON DIOXIDE 24.9 MMOL/L (24-32); TOTAL PROTEIN 7.6 G/DL (6.4-8.2); eGFR > 90 ML/MIN
[2020-06-16] MEDS: tPA-cathflo 2mg/2ml IV flush 4 MG in normal saline 100ml IV soln 100 ML ICATH SCH ×2 (03:45→13:36)
--- NOTE | 2020-06-16 06:30 | NUR ---
Patient in room CICU 2014. I have received report from moustapha villar and had the opportunity to ask questions and assume patient care.
[2020-06-16 07:48] LABS: HEMATOCRIT 32.7 % (42.0-52.0); HEMOGLOBIN 9.8 g/dl (14.0-17.9); MEAN CORPUSCULAR HEMOGLOBIN 21.4 PG (27.0-31.0); MEAN CORPUSCULAR VOLUME 71.3 FL (78-98); MEAN PLATELET VOLUME 8.2 FL (7.4-10.4); PLATELET COUNT 366 X10'3 (140-440); RED BLOOD COUNT 4.59 X10'6 (4.70-6.10); RED CELL DISTRIBUTION WIDTH 30.8 % (11.5-14.5); WHITE BLOOD COUNT 9.8 X10'3 (4.5-11.0)
[2020-06-16] MEDS: pantoprazole 40mg Tablet.DR PO SCH ×2 (07:51→19:50)
[2020-06-16] MEDS: K and/or MAG REPLACEMENT MC SCH ×2 (08:00→20:00)
[2020-06-16] MEDS: sodium ferric gluc complex inj 125 MG in normal saline 100ml IV soln 90 ML IV SCH (08:20)
--- NOTE | 2020-06-16 10:36 | NUR ---
WOC RN IN, INFORMED NO WOC ORDERS FOR ART ULCER LLE WOUND CARE, WRAPPED IN KERLEX. PT DENIES ANY WOUND CARE BEING PERFORMED.
--- NOTE | 2020-06-16 11:00 | NUR ---
WOC RN IN, ASSESSED, WOUND CARE PERFORMED, ORDERS TO BE WRITTEN.
[2020-06-16] MEDS: LORazepam 1 MG tablet PO PRN ×2 (11:14→19:05)
[2020-06-16 14:17] LABS: HEMATOCRIT 32.4 % (42.0-52.0); HEMOGLOBIN 9.8 g/dl (14.0-17.9); MEAN CORPUSCULAR HEMOGLOBIN 21.6 PG (27.0-31.0); MEAN CORPUSCULAR HGB CONC 30.2 g/dL (33.0-36.5); MEAN CORPUSCULAR VOLUME 71.6 FL (78-98); MEAN PLATELET VOLUME 8.2 FL (7.4-10.4); PLATELET COUNT 348 X10'3 (140-440); RED BLOOD COUNT 4.52 X10'6 (4.70-6.10); RED CELL DISTRIBUTION WIDTH 31.1 % (11.5-14.5); WHITE BLOOD COUNT 9.2 X10'3 (4.5-11.0)
[2020-06-16] MEDS ORDERED: methylnaltrexone br 12mg/0.6ml inj***SubQ only SQ ONE (14:20)
[2020-06-16] MEDS ORDERED: mag hydrox/Alum hydrox/simeth 30ml oral suspension PO ONE (14:20)
--- NOTE | 2020-06-16 15:10 | NUR ---
TO IR VIA BED, ACCOMPANIED BY RN X 3.
[2020-06-16] MEDS ORDERED: iohexol 300 MG/1 ML 50ml polymer ONE (15:15)
[2020-06-16] MEDS ORDERED: fentaNYL/PF 50MCG/1 ML 2ML syringe ONE (15:39)
[2020-06-16] MEDS ORDERED: midazolam 2 mg/2 ml injection ONE (15:39)
[2020-06-16] MEDS ORDERED: heparin 1,000 UNITS/NS 500ml 500 ML ONE (15:42)
[2020-06-16] MEDS ORDERED: iohexol 300mg/ml 100ml inj. ONE (15:42)
[2020-06-16] MEDS ORDERED: LIDOcaine 1%/PF 5ML 10 MG/ML VIAL ONE (15:59)
--- NOTE | 2020-06-16 16:33 | NUR ---
RETURNED FROM IR VIA BED. RIGHT GROIN SHEATH SITE ASX, WITHOPUT SX OF HEMATOMA OR HEMORRAGE. 04/23 PAIN LEFT GROIN, USING DIL CADD, BACLOFEN PO ADM. ASKED IF HEATING PAD WOULD HELP, DISCUSSED WITH PAULETTE CUNNINGHAM RN. HOT BLANKETS APPLIED TO LEFT GROIN. Addendum: 06/16/20 at 1736 by Jean White RN VS STABLE.
--- NOTE | 2020-06-16 17:46 | NUR ---
WHEN RETURNED, REPORT FROM JF RAY WAS THAT TPA TO RUN AT 0.5 MG/HOUR X 6 HOURS, THEN BACK TO 0.25 MG/HOUR. DO NOT SEE ANY ORDERS. DISCUSSED WITH PAULETTE CUNNINGHAM RN. CALL TO IR, NO ANSWER. CALL TO MATTY, NURSING MANUFACTURING QUALITY INSPECTOR TO PAGE ACCOUNT GENERAL MANAGER IR RN. STATES"i WILL PAGE CORY, SHE IS ACCOUNT GENERAL MANAGER, TO CALL YOU".
--- NOTE | 2020-06-16 17:50 | NUR ---
MATTY CALLED BACK, STATES"I LEFT A MESSAGE FOR HER TO CALL YOU BACK.IF NO CALL IN 115 MINUTES, CALL ME BACK".
--- NOTE | 2020-06-16 18:04 | NUR ---
Problems reprioritized. Patient report given, questions answered & plan of care reviewed with JF TRAVIS.
--- NOTE | 2020-06-16 18:05 | NUR ---
CALL TO MATTY, NURSING SALESPERSON HEARING AIDS, RE: NO TPA ORDER. ASTATES : Addendum: 06/16/20 at 1807 by Jean White RN STATES" I WILL CALL HER AGAIN, AND IF NO RESPONSE, WILL PAGE MARGUERITE" REPORT THIS TO JF TRAVIS, ASSUMING CARE.
[2020-06-16 21:12] LABS: HEMATOCRIT 31.5 % (42.0-52.0); HEMOGLOBIN 9.7 g/dl (14.0-17.9); MEAN CORPUSCULAR HGB CONC 30.6 g/dL (33.0-36.5); MEAN CORPUSCULAR VOLUME 71.8 FL (78-98); MEAN PLATELET VOLUME 8.2 FL (7.4-10.4); PLATELET COUNT 293 X10'3 (140-440); RED BLOOD COUNT 4.39 X10'6 (4.70-6.10); RED CELL DISTRIBUTION WIDTH 31.3 % (11.5-14.5); WHITE BLOOD COUNT 11.3 X10'3 (4.5-11.0)
--- NOTE | 2020-06-16 22:31 | NUR ---
TPA gtt titrated to 0.25mg/hr per order.
[2020-06-17] VITALS (19 sets, daily range): BP systolic 134–160; BP diastolic 82–98
[2020-06-17] MEDS: tPA-cathflo 2mg/2ml IV flush 4 MG in normal saline 100ml IV soln 100 ML ICATH SCH (00:43)
[2020-06-17] MEDS: HYDROmorphone/NS 1 mg/ml CADD 50 ML IV SCH ×10 (01:00→23:00)
[2020-06-17] MEDS: baclofen 10mg tablet PO PRN ×3 (02:21→18:23)
[2020-06-17 02:42] LABS: HEMATOCRIT 32.7 % (42.0-52.0); MEAN CORPUSCULAR HEMOGLOBIN 22.1 PG (27.0-31.0); MEAN CORPUSCULAR HGB CONC 30.6 g/dL (33.0-36.5); MEAN CORPUSCULAR VOLUME 72.5 FL (78-98); MEAN PLATELET VOLUME 8.1 FL (7.4-10.4); PLATELET COUNT 274 X10'3 (140-440); RED BLOOD COUNT 4.51 X10'6 (4.70-6.10); RED CELL DISTRIBUTION WIDTH 31.6 % (11.5-14.5); WHITE BLOOD COUNT 10.8 X10'3 (4.5-11.0)
[2020-06-17 03:07] LABS: ALANINE AMINOTRANSFERASE 115 U/L (12-78); ALBUMIN 2.7 G/DL (3.4-5.0); ALBUMIN/GLOBULIN RATIO 0.6 (1.1-1.5); ALKALINE PHOSPHATASE 283 IU/L (46-116); ANION GAP 8 (8-16); ASPARTATE AMINO TRANSFERASE 33 U/L (10-37); BILIRUBIN,TOTAL 0.4 MG/DL (0.1-1.0); BLOOD UREA NITROGEN 6 MG/DL (7-18); BUN/CREATININE RATIO 9.8 (5.4-32.0); CALCIUM 9.4 MG/DL (8.5-10.1); CHLORIDE 101 MMOL/L (99-107); CREATININE 0.61 MG/DL (0.60-1.10); GLUCOSE 106 MG/DL (70-104); POTASSIUM 3.7 MMOL/L (3.5-5.1); SODIUM 134 MMOL/L (135-145); TOTAL CARBON DIOXIDE 24.7 MMOL/L (24-32); TOTAL PROTEIN 7.4 G/DL (6.4-8.2); eGFR > 90 ML/MIN
--- NOTE | 2020-06-17 06:55 | NUR ---
Patient in room CICU 2014. I have received report from JF Cummings and had the opportunity to ask questions and assume patient care.
[2020-06-17] MEDS: K and/or MAG REPLACEMENT MC SCH ×2 (08:00→19:50)
[2020-06-17 08:57] LABS: MEAN CORPUSCULAR HEMOGLOBIN 21.6 PG (27.0-31.0); MEAN CORPUSCULAR VOLUME 71.9 FL (78-98); MEAN PLATELET VOLUME 8.3 FL (7.4-10.4); PLATELET COUNT 274 X10'3 (140-440); RED BLOOD COUNT 4.66 X10'6 (4.70-6.10); RED CELL DISTRIBUTION WIDTH 31.7 % (11.5-14.5); WHITE BLOOD COUNT 13.6 X10'3 (4.5-11.0)
[2020-06-17 09:30] LABS: HEMOGLOBIN 10.2 g/dl (14.0-17.9)
[2020-06-17] MEDS: sodium ferric gluc complex inj 125 MG in normal saline 100ml IV soln 90 ML IV SCH (09:30)
[2020-06-17 09:31] LABS: HEMATOCRIT 31.8 % (42.0-52.0)
[2020-06-17] MEDS: pantoprazole 40mg Tablet.DR PO SCH ×2 (09:32→20:00)
[2020-06-17 11:31] LABS: PARTIAL THROMBOPLASTIN TIME 44 SECONDS (22-32)
[2020-06-17 13:51] LABS: HEMATOCRIT 33.1 % (42.0-52.0); HEMOGLOBIN 9.8 g/dl (14.0-17.9); MEAN CORPUSCULAR HEMOGLOBIN 21.4 PG (27.0-31.0); MEAN CORPUSCULAR HGB CONC 29.6 g/dL (33.0-36.5); MEAN CORPUSCULAR VOLUME 72.3 FL (78-98); MEAN PLATELET VOLUME 8.1 FL (7.4-10.4); PLATELET COUNT 273 X10'3 (140-440); RED BLOOD COUNT 4.58 X10'6 (4.70-6.10); WHITE BLOOD COUNT 15.2 X10'3 (4.5-11.0)
[2020-06-17] MEDS ORDERED: iohexol 300 MG/1 ML 50ml polymer ONE (14:13)
[2020-06-17] MEDS ORDERED: iohexol 300mg/ml 100ml inj. ONE ×2 (14:25→16:23)
[2020-06-17] MEDS ORDERED: heparin 1,000 UNITS/NS 500ml 500 ML ONE ×2 (14:25→16:23)
[2020-06-17] MEDS ORDERED: LIDOcaine 1%/PF 5ML 10 MG/ML VIAL ONE (14:25)
[2020-06-17] MEDS ORDERED: fentaNYL/PF 50MCG/1 ML 2ML syringe ONE ×2 (14:31→16:13)
[2020-06-17] MEDS ORDERED: midazolam 2 mg/2 ml injection ONE ×2 (14:31→16:13)
[2020-06-17] MEDS ORDERED: heparin 1,000unit/ml 10ml vial 10 ML ONE (15:10)
--- NOTE | 2020-06-17 16:45 | NUR ---
Per Jayda pt place surgical transfer orders post removal sheath and d/c of tpa
[2020-06-17] MEDS: normal saline 1000ml 1,000 ML IV SCH (17:00)
--- NOTE | 2020-06-17 18:15 | NUR ---
Problems reprioritized. Patient report given, questions answered & plan of care reviewed with JF Cummings.
--- NOTE | 2020-06-17 18:30 | NUR ---
Patient in room CICU 2014. I have received report from JF Frazier and had the opportunity to ask questions and assume patient care. Phone call rec'd from Dr. Parsons. Orders rec'd to remove femstop at 2130 and start heparin gtt per DVT protocol. See orders for further information.
[2020-06-17] MEDS ORDERED: heparin 10,000 units/1 ML INJ IV PRN (18:35)
[2020-06-17] MEDS ORDERED: heparin 25,000 UNIT/250ml bag 250 ML IV SCH (18:35)
[2020-06-17] MEDS ORDERED: heparin 10,000 units/1 ML INJ IV ONE (18:35)
[2020-06-17 18:39] LABS: PARTIAL THROMBOPLASTIN TIME 29 SECONDS (22-32)
[2020-06-17 19:39] LABS: BASOPHILS # (AUTO) 0.1 X10'3 (0-0.2); BASOPHILS % (AUTO) 0.4 % (0-1); EOSINOPHILS % (AUTO) 0.2 % (0-6); HEMATOCRIT 32.6 % (42.0-52.0); HEMOGLOBIN 9.9 g/dl (14.0-17.9); LYMPHOCYTES # (AUTO) 0.9 X10'3 (1.1-4.8); MEAN CORPUSCULAR HEMOGLOBIN 22.1 PG (27.0-31.0); MEAN CORPUSCULAR HGB CONC 30.5 g/dL (33.0-36.5); MEAN CORPUSCULAR VOLUME 72.5 FL (78-98); MEAN PLATELET VOLUME 8.3 FL (7.4-10.4); MONOCYTES % (AUTO) 12.9 % (2-12); NEUTROPHILS # (AUTO) 12.5 X10'3 (1.8-7.7); NEUTROPHILS % (AUTO) 80.5 % (42-75); PLATELET COUNT 262 X10'3 (140-440); RED BLOOD COUNT 4.49 X10'6 (4.70-6.10); RED CELL DISTRIBUTION WIDTH 31.9 % (11.5-14.5); WHITE BLOOD COUNT 15.5 X10'3 (4.5-11.0)
[2020-06-17 20:04] LABS: ANISOCYTOSIS 3+; HYPOCHROMASIA 1+; PLATELET ESTIMATE NORMAL
--- NOTE | 2020-06-17 22:15 | NUR ---
Patient report given to Johanna RHOADES PCU. Sheath site WNL, no bleeding or redness noted. Vitals are stable at this time. Pt to room 3013b. Blood drawn for DVT PTT and sent to lab. Problems reprioritized. Patient report given, questions answered & plan of care reviewed with JF Spencer.
[2020-06-17 23:03] LABS: HEMATOCRIT 31.3 % (42.0-52.0); HEMOGLOBIN 9.3 g/dl (14.0-17.9); MEAN CORPUSCULAR HEMOGLOBIN 21.8 PG (27.0-31.0); MEAN CORPUSCULAR HGB CONC 29.8 g/dL (33.0-36.5); MEAN PLATELET VOLUME 8.3 FL (7.4-10.4); PLATELET COUNT 263 X10'3 (140-440); RED BLOOD COUNT 4.28 X10'6 (4.70-6.10); RED CELL DISTRIBUTION WIDTH 32.3 % (11.5-14.5); WHITE BLOOD COUNT 14.8 X10'3 (4.5-11.0)
[2020-06-18 01:00] VITALS: BP 141/79
[2020-06-18] MEDS: HYDROmorphone/NS 1 mg/ml CADD 50 ML IV SCH ×6 (01:00→11:00)
[2020-06-18 03:00] VITALS: BP 131/72
[2020-06-18] MEDS ORDERED: heparin 25,000 UNIT/250ml bag 250 ML IV SCH (03:20)
[2020-06-18] MEDS ORDERED: heparin 10,000 units/1 ML INJ IV ONE (03:20)
[2020-06-18] MEDS ORDERED: heparin 10,000 units/1 ML INJ IV PRN (03:20)
[2020-06-18 05:08] LABS: HEMATOCRIT 27.9 % (42.0-52.0); HEMOGLOBIN 8.5 g/dl (14.0-17.9); MEAN CORPUSCULAR HEMOGLOBIN 21.7 PG (27.0-31.0); MEAN CORPUSCULAR HGB CONC 30.3 g/dL (33.0-36.5); MEAN CORPUSCULAR VOLUME 71.6 FL (78-98); MEAN PLATELET VOLUME 8.5 FL (7.4-10.4); PLATELET COUNT 265 X10'3 (140-440); RED CELL DISTRIBUTION WIDTH 32.4 % (11.5-14.5); WHITE BLOOD COUNT 12.5 X10'3 (4.5-11.0)
[2020-06-18 05:15] LABS: ALANINE AMINOTRANSFERASE 65 U/L (12-78); ALBUMIN 2.2 G/DL (3.4-5.0); ALBUMIN/GLOBULIN RATIO 0.5 (1.1-1.5); ALKALINE PHOSPHATASE 217 IU/L (46-116); ANION GAP 8 (8-16); ASPARTATE AMINO TRANSFERASE 21 U/L (10-37); BILIRUBIN,TOTAL 0.6 MG/DL (0.1-1.0); BLOOD UREA NITROGEN 10 MG/DL (7-18); BUN/CREATININE RATIO 11.5 (5.4-32.0); CALCIUM 8.7 MG/DL (8.5-10.1); CHLORIDE 95 MMOL/L (99-107); CREATININE 0.87 MG/DL (0.60-1.10); GLUCOSE 107 MG/DL (70-104); POTASSIUM 3.6 MMOL/L (3.5-5.1); SODIUM 128 MMOL/L (135-145); TOTAL CARBON DIOXIDE 24.6 MMOL/L (24-32); TOTAL PROTEIN 6.4 G/DL (6.4-8.2); eGFR > 90 ML/MIN
[2020-06-18] MEDS: acetaminophen 325mg tablet PO PRN ×2 (05:58→16:06)
[2020-06-18 06:00] VITALS: BP 126/73
[2020-06-18] MEDS: normal saline 1000ml 1,000 ML IV SCH (06:20)
[2020-06-18] MEDS: pantoprazole 40mg Tablet.DR PO SCH ×2 (07:42→19:57)
[2020-06-18] MEDS: K and/or MAG REPLACEMENT MC SCH ×2 (08:00→19:58)
--- NOTE | 2020-06-18 08:52 | NUR ---
Pt's 7,000 unit bolus of heparin and 1,500 unit/hour heparin drip started on last shift but were never scanned. EMAR Says they were started and administered today at 0850 but were actually given and started on cook night around 0100.
[2020-06-18] MEDS: sodium ferric gluc complex inj 125 MG in normal saline 100ml IV soln 90 ML IV SCH (09:47)
[2020-06-18] MEDS ORDERED: HYDROcodone/acetaminophen 5mg/325mg tablet PO PRN (10:25)
--- NOTE | 2020-06-18 10:44 | NUR ---
Per Dr. George; We will administer Eliquis 5mg PO and then turn off and DC Heparin drip one hour after Eliquis has been given. CADD pump will be DC'd along with Heparin drip. Ewell 5 and 10, along with dilaudid .5mg IV Will be added after CADD pump DD'd.
[2020-06-18] MEDS: apixaban 5mg tablet PO SCH ×2 (10:51→19:57)
[2020-06-18 11:00] VITALS: BP 121/69
--- NOTE | 2020-06-18 11:49 | NUR ---
Pt's CADD, Heparin drip and NS will be discontinued.
[2020-06-18] MEDS: HYDROcodone/acetaminophen 10/325mg tab PO PRN (12:32)
[2020-06-18] MEDS ORDERED: CADD PCA waste documentation MC PRN (13:15)
[2020-06-18 15:00] VITALS: BP 142/62
--- NOTE | 2020-06-18 16:41 | NUR ---
PAGER ID: [phone] MESSAGE: Re: Merry Marvin. Room: 3013B. FYI, temp of 102.9,Tylenol administered. Blood Cultures drawn this AM. -[facility] #[id number] Dr. George paged concerning Pt's temp.
[2020-06-18 17:41] LABS: CLARITY,URINE SLIGHTLY CLOUDY (Clear); COLOR,URINE YELLOW (Yellow); GLUCOSE, URINE NEGATIVE (Neg); KETONES,URINE NEGATIVE (Neg); LEUKOCYTE ESTERASE ,URINE NEGATIVE (Neg); NITRITES, URINE NEGATIVE (Neg); OCCULT BLOOD,URINE LARGE (Neg); PH,URINE 5.5 (4.8-8.0); PROTEIN,URINE 30 mg/dl (Neg)
[2020-06-18 17:43] LABS: UA COLLECTION TYPE CLN CATCH MIDSTREAM
[2020-06-18 17:49] LABS: MUCUS STRANDS MANY /LPF (Neg); SQUAMOUS EPITHELIAL CELL,UR FEW /LPF (FEW)
[2020-06-18 17:50] LABS: AMMONIUM BIURATE CRYSTALS FEW /HPF (NEGATIVE); BACTERIA,URINE NONE SEEN /HPF (Neg); WBC,URINE 0-4 /HPF (0-4)
[2020-06-18 18:00] VITALS: BP 119/65
--- NOTE | 2020-06-18 18:38 | NUR ---
Problems reprioritized. Patient report given, questions answered & plan of care reviewed with Zulema RHOADES.
--- NOTE | 2020-06-18 18:50 | NUR ---
Patient in room PCU 3013. I have received report from Harvey RHOADES and had the opportunity to ask questions and assume patient care.
--- NOTE | 2020-06-18 23:54 | NUR ---
Page Sent TO CASEY promotional table spacer PAGER ID: [phone] MESSAGE: [email or web address] Elsi Palacios 54M - PT RECTAL TEMP 103.7 PT BEING ICED, SHIVERING FEELS VERY COLD, HOT TO TOUCH. [id number] ANIKA RHOADES Addendum: 06/18/20 at 2356 by Simon Ziegler RN Page Sent promotional table spacer PAGER ID: [phone] MESSAGE: [id number] ELSI PALACIOS - REQUESTING 1G IV TYLENOL FOR RECTAL FEVER 103.7 [id number] ANIKA / REJI. Addendum: 06/19/20 at 0018 by Simon Ziegler RN [facility]Y PREFERRED TO ADMIN ORAL 650MG TYLENOL AND TO CONTACT HER IF IT IS INEFFECTIVE WITH ICE. PASSED ON TO PRIMARY JF.
[2020-06-19] MEDS: acetaminophen 325mg tablet PO PRN (00:14)
--- NOTE | 2020-06-19 01:10 | NUR ---
notified that patient temperature went down to 102.8. Dr. Gallego notified, oredred Ibuprofen 400 mg x 1.
[2020-06-19] MEDS ORDERED: ibuprofen tablet 400 MG TABLET PO ONE (01:15)
[2020-06-19 02:00] VITALS: BP 111/63
[2020-06-19 06:00] VITALS: BP 123/69
--- NOTE | 2020-06-19 06:10 | NUR ---
Patient in room PCU 3013. I have received report from Zulema RHOADES and had the opportunity to ask questions and assume patient care.
--- NOTE | 2020-06-19 06:14 | NUR ---
Problems reprioritized. Patient report given, questions answered & plan of care reviewed with Harvey RHOADES.
[2020-06-19 07:08] LABS: HEMOGLOBIN 8.4 g/dl (14.0-17.9); MEAN CORPUSCULAR VOLUME 72.2 FL (78-98); MONOCYTES # (AUTO) 2.4 X10'3 (0-0.9)
[2020-06-19 07:11] LABS: BASOPHILS # (AUTO) 0.1 X10'3 (0-0.2); BASOPHILS % (AUTO) 0.6 % (0-1); EOSINOPHILS % (AUTO) 0.2 % (0-6); HEMATOCRIT 26.6 % (42.0-52.0); LYMPHOCYTES # (AUTO) 0.7 X10'3 (1.1-4.8); LYMPHOCYTES % (AUTO) 7.4 % (21-51); MEAN CORPUSCULAR HEMOGLOBIN 22.9 PG (27.0-31.0); MEAN CORPUSCULAR HGB CONC 31.7 g/dL (33.0-36.5); MEAN PLATELET VOLUME 8.5 FL (7.4-10.4); MONOCYTES % (AUTO) 24.9 % (2-12); NEUTROPHILS # (AUTO) 6.4 X10'3 (1.8-7.7); NEUTROPHILS % (AUTO) 66.9 % (42-75); PLATELET COUNT 301 X10'3 (140-440); RED BLOOD COUNT 3.68 X10'6 (4.70-6.10); RED CELL DISTRIBUTION WIDTH 31.7 % (11.5-14.5); WHITE BLOOD COUNT 9.6 X10'3 (4.5-11.0)
[2020-06-19 07:27] LABS: ALANINE AMINOTRANSFERASE 107 U/L (12-78); ALBUMIN 2.1 G/DL (3.4-5.0); ALBUMIN/GLOBULIN RATIO 0.5 (1.1-1.5); ALKALINE PHOSPHATASE 285 IU/L (46-116); ANION GAP 10 (8-16); ASPARTATE AMINO TRANSFERASE 73 U/L (10-37); BILIRUBIN,TOTAL 0.8 MG/DL (0.1-1.0); BLOOD UREA NITROGEN 9 MG/DL (7-18); CHLORIDE 96 MMOL/L (99-107); CREATININE 0.75 MG/DL (0.60-1.10); GLUCOSE 94 MG/DL (70-104); POTASSIUM 3.2 MMOL/L (3.5-5.1); SODIUM 129 MMOL/L (135-145); TOTAL CARBON DIOXIDE 23.5 MMOL/L (24-32); TOTAL PROTEIN 6.4 G/DL (6.4-8.2); eGFR > 90 ML/MIN
[2020-06-19] MEDS: apixaban 5mg tablet PO SCH ×2 (07:49→20:57)
[2020-06-19] MEDS: pantoprazole 40mg Tablet.DR PO SCH ×2 (07:49→20:56)
[2020-06-19 08:34] LABS: NUCLEATED RED BLOOD CELLS 1 /100WBC (0-0); TOTAL CELLS COUNTED 100
[2020-06-19 08:35] LABS: ANISOCYTOSIS 3+; HYPOCHROMASIA 1+; MICROCYTOSIS 1+; PLATELET ESTIMATE NORMAL; POLYCHROMASIA 2+; TOXIC GRANULATION 1+; TOXIC VACUOLATION 1+
[2020-06-19] MEDS ORDERED: potassium Cl 20 mEq SR tablet PO PRN (08:40)
[2020-06-19] MEDS ORDERED: potassium CL 10mEq/100ml bag 100 ML IV PRN (08:40)
[2020-06-19] MEDS ORDERED: magnesium Cl slow-release 64mg tablet PO PRN (08:40)
[2020-06-19] MEDS ORDERED: magnesium 4gm in 100ml NS 100 ML IV PRN (08:40)
[2020-06-19] MEDS: K and/or MAG REPLACEMENT MC SCH ×2 (08:48→20:00)
[2020-06-19] MEDS: sodium ferric gluc complex inj 125 MG in normal saline 100ml IV soln 90 ML IV SCH (08:55)
[2020-06-19] MEDS: potassium Cl 20 mEq SR tablet PO PRN ×3 (08:55→17:43)
[2020-06-19] MEDS: HYDROcodone/acetaminophen 10/325mg tab PO PRN ×2 (08:58→20:56)
[2020-06-19] MEDS: levoFLOXACIN-Levaquin 500mg/D5 100 ML IV SCH (10:35)
[2020-06-19 11:00] VITALS: BP_SYST 106; BP_SYST 180; BP_DIAS 61; BP_DIAS 71
--- NOTE | 2020-06-19 11:40 | NUR ---
Reassessment: eating well average PO Intake 75-100% Regular diet. Has necrotic, unstageable, blackened pressure ulcer to anterior left BKA and medial left BKA, pressure ulcer distal BKA and left lateral BKA. WOC is following. Has liquid stools likely r/t antibiotics, aware. Sodium low, also aware. Meeting increased protein needs with current PO intake. Possible home today per Ankle Patch Molder note. Rec: 1. continue regular diet 2. routine bowel care 3. wt per rx Addendum: 06/19/20 at [address] Amended: Links added.
--- NOTE | 2020-06-19 12:06 | NUR ---
PAGER ID: [phone] MESSAGE: Re: Boo Sousa. Room: 3013B. Pt has elevated AST and ALT. Do you want to switch [place]'s to OXY IR? -[facility] #[id number] Dr. George paged concerning Pt's elevated liver and meds
[2020-06-19] MEDS: HYDROmorphone inj. 0.5 MG/0.5 ML DISP.SYRIN IV PRN ×2 (13:56→17:58)
[2020-06-19 15:00] VITALS: BP 115/65
[2020-06-19 18:00] VITALS: BP 112/62
[2020-06-19 18:05] LABS: OCCULT BLOOD STOOL POSITIVE (Neg)
--- NOTE | 2020-06-19 18:40 | NUR ---
Problems reprioritized. Patient report given, questions answered & plan of care reviewed with Ally RHOADES.
--- NOTE | 2020-06-19 18:41 | NUR ---
Patient in room PCU 3013. I have received report from KAYLA RHOADES and had the opportunity to ask questions and assume patient care. Addendum: 06/19/20 at 1849 by Ally Zendejas RN Amended: Links added.
--- NOTE | 2020-06-19 20:45 | NUR ---
pt medicated for pain with po norco at this time along with hs medications.
[2020-06-19] MEDS: lactobacillus rhamnosus 10,000 MMU CELLS/CAPSULE PO SCH (20:56)
[2020-06-19 22:00] VITALS: BP 110/66
--- NOTE | 2020-06-20 01:20 | NUR ---
pt c/o pain and medicated with iv diladid for pain at this time.
--- NOTE | 2020-06-20 01:30 | NUR ---
pt medicated with po Benadryl for c/o itching
[2020-06-20] MEDS: diphenhydrAMINE 25mg capsule PO PRN (01:38)
[2020-06-20] MEDS: HYDROmorphone inj. 0.5 MG/0.5 ML DISP.SYRIN IV PRN ×3 (01:38→15:50)
[2020-06-20 02:00] VITALS: BP 108/64
--- NOTE | 2020-06-20 04:41 | NUR ---
resting without s&s of distress.
[2020-06-20 06:30] VITALS: BP 120/70
--- NOTE | 2020-06-20 06:38 | NUR ---
Problems reprioritized. Patient report given, questions answered & plan of care reviewed with EDE RHOADES. Addendum: 06/20/20 at 0639 by Ally Zendejas RN Amended: Links added.
--- NOTE | 2020-06-20 06:57 | NUR ---
Patient in room PCU 3013. I have received report from Ally RHOADES and had the opportunity to ask questions and assume patient care.
[2020-06-20] MEDS: K and/or MAG REPLACEMENT MC SCH ×4 (08:00→20:00)
[2020-06-20] MEDS: levoFLOXACIN-Levaquin 500mg/D5 100 ML IV SCH (10:02)
[2020-06-20] MEDS: lactobacillus rhamnosus 10,000 MMU CELLS/CAPSULE PO SCH ×2 (10:02→19:49)
[2020-06-20] MEDS: pantoprazole 40mg Tablet.DR PO SCH ×2 (10:02→19:50)
[2020-06-20] MEDS: apixaban 5mg tablet PO SCH ×2 (10:03→19:50)
[2020-06-20] MEDS: sodium ferric gluc complex inj 125 MG in normal saline 100ml IV soln 90 ML IV SCH (10:51)
[2020-06-20 11:00] VITALS: BP 101/59
[2020-06-20] MEDS ORDERED: metroNIDAZOLE-Flagyl 500mg/NS 100 ML IV SCH (11:05)
[2020-06-20] MEDS: HYDROcodone/acetaminophen 10/325mg tab PO PRN ×2 (12:50→19:51)
[2020-06-20 14:05] LABS: C DIFF ANTIGEN POSITIVE (NEGATIVE); C DIFF SPECIMEN=DIARRHEA? ACCEPTABLE
[2020-06-20 14:08] LABS: C DIFFICILE TOXINS A&B POSITIVE (Neg)
--- NOTE | 2020-06-20 14:45 | NUR ---
Paged Dr. George re: (+) C. diff PAGER ID: [phone] MESSAGE: RONEN Tolentino RN ext [phone]. RE: Marvin Sousa. Patient is (+) for C. diff. Would you like to start him on Vanco PO?
[2020-06-20] MEDS: vancomycin 125mg/5ml ORAL solution 5ml UD bottle PO SCH ×2 (15:50→19:51)
--- NOTE | 2020-06-20 15:50 | NUR ---
Patient was notified that he is (+) for c. diff. Vanco PO started. Patient educated about C. diff and Vanco as treatment.
[2020-06-20] MEDS: potassium Cl 20 mEq SR tablet PO PRN (17:59)
[2020-06-20 18:00] VITALS: BP 125/74
--- NOTE | 2020-06-20 18:52 | NUR ---
Problems reprioritized. Patient report given, questions answered & plan of care reviewed with Flor RHOADES.
--- NOTE | 2020-06-20 18:53 | NUR ---
Patient in room PCU 3013. I have received report from FRED RHOADES and had the opportunity to ask questions and assume patient care.
[2020-06-20] MEDS ORDERED: vancomycin 125mg/5ml ORAL solution 5ml UD bottle PO SCH (20:00)
[2020-06-20 22:00] VITALS: BP 103/69
[2020-06-21] MEDS: HYDROcodone/acetaminophen 10/325mg tab PO PRN ×2 (00:30→05:28)
[2020-06-21] MEDS: HYDROmorphone inj. 0.5 MG/0.5 ML DISP.SYRIN IV PRN ×4 (00:51→21:25)
[2020-06-21 02:00] VITALS: BP 119/71
[2020-06-21] MEDS: vancomycin 125mg/5ml ORAL solution 5ml UD bottle PO SCH ×4 (02:30→19:21)
[2020-06-21 06:00] VITALS: BP 107/54
[2020-06-21] MEDS: K and/or MAG REPLACEMENT MC SCH ×4 (08:00→18:56)
[2020-06-21] MEDS: sodium ferric gluc complex inj 125 MG in normal saline 100ml IV soln 90 ML IV SCH (09:32)
[2020-06-21] MEDS: pantoprazole 40mg Tablet.DR PO SCH ×2 (09:43→19:21)
[2020-06-21] MEDS: lactobacillus rhamnosus 10,000 MMU CELLS/CAPSULE PO SCH ×2 (09:43→19:21)
[2020-06-21] MEDS: apixaban 5mg tablet PO SCH ×2 (09:43→19:21)
[2020-06-21 11:00] VITALS: BP 108/66
[2020-06-21] MEDS ORDERED: VANC125C11 PO (11:40)
[2020-06-21] MEDS ORDERED: PANT40TA54 PO (11:40)
[2020-06-21] MEDS ORDERED: APIX5TAB3 PO (11:40)
[2020-06-21] MEDS ORDERED: BAC10T PO (11:40)
[2020-06-21] MEDS ORDERED: HYDR-4353 PO (11:40)
--- NOTE | 2020-06-21 13:03 | NUR ---
pt has not received labs since 06/19 no K+ labs run to document and pt is discharging . I was informed by JF MOJICA that K+ of 3.2 was replaced prior to my shift.
[2020-06-21 15:00] VITALS: BP 125/73
[2020-06-21 18:00] VITALS: BP 128/86
--- NOTE | 2020-06-21 18:40 | NUR ---
Patient in room PCU 3013B. I have received report from JF Wilson and had the opportunity to ask questions and assume patient care.
--- NOTE | 2020-06-21 19:28 | NUR ---
Problems reprioritized. Patient report given, questions answered & plan of care reviewed with Peter.
[2020-06-21 22:00] VITALS: BP 151/82
[2020-06-22] MEDS: HYDROmorphone inj. 0.5 MG/0.5 ML DISP.SYRIN IV PRN ×3 (01:26→14:34)
[2020-06-22] MEDS: vancomycin 125mg/5ml ORAL solution 5ml UD bottle PO SCH ×3 (01:26→14:25)
[2020-06-22 02:00] VITALS: BP 122/79
[2020-06-22 05:18] LABS: ANION GAP 9 (8-16); BLOOD UREA NITROGEN 4 MG/DL (7-18); CALCIUM 9.1 MG/DL (8.5-10.1); CHLORIDE 99 MMOL/L (99-107); CREATININE 0.67 MG/DL (0.60-1.10); GLUCOSE 103 MG/DL (70-104); SODIUM 133 MMOL/L (135-145); TOTAL CARBON DIOXIDE 24.7 MMOL/L (24-32); eGFR > 90 ML/MIN
[2020-06-22 05:21] LABS: BASOPHILS # (AUTO) 0.1 X10'3 (0-0.2); BASOPHILS % (AUTO) 0.7 % (0-1); EOSINOPHILS # (AUTO) 0.2 X10'3 (0-0.9); EOSINOPHILS % (AUTO) 1.5 % (0-6); HEMATOCRIT 29.2 % (42.0-52.0); HEMOGLOBIN 8.9 g/dl (14.0-17.9); LYMPHOCYTES # (AUTO) 1.7 X10'3 (1.1-4.8); LYMPHOCYTES % (AUTO) 11.4 % (21-51); MEAN CORPUSCULAR HEMOGLOBIN 21.8 PG (27.0-31.0); MEAN CORPUSCULAR HGB CONC 30.3 g/dL (33.0-36.5); MEAN CORPUSCULAR VOLUME 72.1 FL (78-98); MONOCYTES # (AUTO) 2.3 X10'3 (0-0.9); MONOCYTES % (AUTO) 15.7 % (2-12); NEUTROPHILS # (AUTO) 10.5 X10'3 (1.8-7.7); NEUTROPHILS % (AUTO) 70.7 % (42-75); PLATELET COUNT 715 X10'3 (140-440); RED BLOOD COUNT 4.06 X10'6 (4.70-6.10); WHITE BLOOD COUNT 14.8 X10'3 (4.5-11.0)
[2020-06-22 05:30] LABS: POTASSIUM 2.9 MMOL/L (3.5-5.1)
[2020-06-22 05:58] LABS: ANISOCYTOSIS 3+; MICROCYTOSIS 1+; NUCLEATED RED BLOOD CELLS 2 /100WBC (0-0); PLATELET ESTIMATE INCREASED; TOTAL CELLS COUNTED 100
[2020-06-22 05:59] LABS: HYPOCHROMASIA 1+; LARGE PLATELETS FEW; POLYCHROMASIA FEW; TOXIC GRANULATION 1+
--- NOTE | 2020-06-22 06:30 | NUR ---
Problems reprioritized. Patient report given, questions answered & plan of care reviewed with JF Wilson.
--- NOTE | 2020-06-22 07:08 | NUR ---
Patient in room PCU 3013. I have received report from Madelyn and had the opportunity to ask questions and assume patient care.
[2020-06-22] MEDS: potassium Cl 20 mEq SR tablet PO PRN (08:20)
[2020-06-22] MEDS: sodium ferric gluc complex inj 125 MG in normal saline 100ml IV soln 90 ML IV SCH (08:20)
[2020-06-22] MEDS: apixaban 5mg tablet PO SCH (08:20)
[2020-06-22] MEDS: lactobacillus rhamnosus 10,000 MMU CELLS/CAPSULE PO SCH (08:20)
[2020-06-22] MEDS: pantoprazole 40mg Tablet.DR PO SCH (08:20)
[2020-06-22] MEDS: K and/or MAG REPLACEMENT MC SCH ×2 (08:23)
--- NOTE | 2020-06-23 20:06 | NUR ---
pt discharged later in the afternoon at 1730 because he was a 10/10 on pain scale prior to discharge and requested pain medication at 1415. Prior to the med pass the pt said his ride was close and would not need much notice. I gave the pt 0.5mg of Dilaudid IV push at 1430 and after reassessing him for pain and taking out his midline he stated that he drove to the hospital and wanted. I explained he would not be able to drive home after receiving his medication and educated him on prescriptions, anemia, and PVD. He said no problem and made a phone call for a woman to pick him up after 1700. The patient left with a discharge plan, plan to contact a primary health care provider and a hard copy for pain med, a coupon for wilfredo and pt education, health summary, and additonal paperwork. Both the pt and I signed the discharge form and the copy was placed in his file.
== END 2020-06-22 17:20 | disposition home or self-care (01) | DRG 271 ==
LOC: ER 08:45 → ED HOLD 16:08 → MED 3N 18:45 → CICU 2S 06-15 12:50 → PCU 3S 06-17 22:30
PROVIDERS: ADMIT Family Medicine; ATTEND Family Medicine
PROC: 3E02340 Introduction of Influenza Vaccine into Muscle, Percutaneous Approach (ICD-10-PCS; principal; 2020-06-11)
PROC: 30233N1 Transfusion of Nonautologous Red Blood Cells into Peripheral Vein, Percutaneous Approach (ICD-10-PCS; 2020-06-12)
PROC: B41C1ZZ Fluoroscopy of Pelvic Arteries using Low Osmolar Contrast (ICD-10-PCS; 2020-06-15)
PROC: 04HJ33Z Insertion of Infusion Device into Left External Iliac Artery, Percutaneous Approach (ICD-10-PCS; 2020-06-15)
PROC: 3E05317 Introduction of Other Thrombolytic into Peripheral Artery, Percutaneous Approach (ICD-10-PCS; 2020-06-15)
PROC: B41F1ZZ Fluoroscopy of Right Lower Extremity Arteries using Low Osmolar Contrast (ICD-10-PCS; 2020-06-15)
PROC: B41G1ZZ Fluoroscopy of Left Lower Extremity Arteries using Low Osmolar Contrast (ICD-10-PCS; 2020-06-16)
PROC: 3E05317 Introduction of Other Thrombolytic into Peripheral Artery, Percutaneous Approach (ICD-10-PCS; 2020-06-16)
PROC: 04CL3ZZ Extirpation of Matter from Left Femoral Artery, Percutaneous Approach (ICD-10-PCS; 2020-06-17)
PROC: 047L3ZZ Dilation of Left Femoral Artery, Percutaneous Approach (ICD-10-PCS; 2020-06-17)
PROC: B41G1ZZ Fluoroscopy of Left Lower Extremity Arteries using Low Osmolar Contrast (ICD-10-PCS; 2020-06-17)
DX: I70.292 Other atherosclerosis of native arteries of extremities, left leg (principal); I74.5 Embolism and thrombosis of iliac artery; A04.72 Enterocolitis due to Clostridium difficile, not specified as recurrent; E87.1 Hypo-osmolality and hyponatremia; I74.3 Embolism and thrombosis of arteries of the lower extremities; D50.9 Iron deficiency anemia, unspecified; M54.9 Dorsalgia, unspecified; E87.6 Hypokalemia; F12.90 Cannabis use, unspecified, uncomplicated; Z79.01 Long term (current) use of anticoagulants; Z89.511 Acquired absence of right leg below knee; Z89.512 Acquired absence of left leg below knee; Z23 Encounter for immunization
CPT/HCPCS: 36160; 36245; 36415; 36430; 37211; 37213; 37214; 37224; 71045; 75625; 75736; 76937; 80048; 80053; 80061; 80305; 81001; 82272; 82728; 83036; 83540; 83550; 83605; 83735; 84100; 84145; 84443; 85007; 85008; 85025; 85027; 85384; 85610; 85730; 86885; 86900; 86901; 86920; 87040; 87081; 87088; 87324; 87449; 93925; 96365; 96375; 97161; 97530; 99152; 99153; 99285; C1725; C1729; C1751; C1760; C1769; C1894; C9113; G0378; J1170; J1644; J1956; J2212; J2250; J2270; J2405; J2765; J2916; J2997; J3010; J3490; J7030; P9016; Q0163; Q9967

== ENCOUNTER 2020-07-03 11:36 | Outpatient (CLI) | payer BC ==
[~2020-07-03 11:36] MED LIST changes: +APIX5TAB3 PO; -ASCO500C18 PO; +BAC10T PO; -HYDR-3972 PO; +HYDR-4353 PO; -MULT-933 PO; +PANT40TA54 PO; +VANC125C11 PO
[2020-07-03] MEDS ORDERED: LIDOcaine 2% 5ml jelly ONE (12:25)
== END 2020-07-03 23:59 | disposition home or self-care (01) ==
LOC: WOUND CARE 11:36
PROVIDERS: ATTEND Nurse Practitioner
DX: T87.89 Other complications of amputation stump (principal); L89.894 Pressure ulcer of other site, stage 4; L89.890 Pressure ulcer of other site, unstageable; I70.248 Atherosclerosis of native arteries of left leg with ulceration of other part of lower leg; L97.821 Non-pressure chronic ulcer of other part of left lower leg limited to breakdown of skin; E87.1 Hypo-osmolality and hyponatremia; F12.90 Cannabis use, unspecified, uncomplicated; Z89.512 Acquired absence of left leg below knee; Z79.899 Other long term (current) drug therapy; Z87.442 Personal history of urinary calculi; Z89.511 Acquired absence of right leg below knee; Z86.718 Personal history of other venous thrombosis and embolism; Z79.01 Long term (current) use of anticoagulants; Y83.5 Amputation of limb(s) as the cause of abnormal reaction of the patient, or of later complication, without mention of misadventure at the time of the procedure
CPT/HCPCS: G0463

== ENCOUNTER 2020-07-07 11:57 | Outpatient (CLI) | payer BC ==
[2020-07-07] MEDS ORDERED: LIDOcaine 2% 5ml jelly ONE ×2 (12:18→12:27)
[2020-07-07] MEDS ORDERED: LIDOcaine 1%/PF 5ML 10 MG/ML VIAL ONE (12:18)
== END 2020-07-07 23:59 | disposition home or self-care (01) ==
LOC: WOUND CARE 11:57
PROVIDERS: ATTEND Nurse Practitioner
DX: T87.89 Other complications of amputation stump (principal); L89.894 Pressure ulcer of other site, stage 4; L89.890 Pressure ulcer of other site, unstageable; I70.249 Atherosclerosis of native arteries of left leg with ulceration of unspecified site; L97.828 Non-pressure chronic ulcer of other part of left lower leg with other specified severity; E87.1 Hypo-osmolality and hyponatremia; M79.89 Other specified soft tissue disorders; F12.90 Cannabis use, unspecified, uncomplicated; Z89.512 Acquired absence of left leg below knee; Z79.899 Other long term (current) drug therapy; Z87.442 Personal history of urinary calculi; Z89.511 Acquired absence of right leg below knee; Z86.718 Personal history of other venous thrombosis and embolism; Z79.01 Long term (current) use of anticoagulants; Y83.5 Amputation of limb(s) as the cause of abnormal reaction of the patient, or of later complication, without mention of misadventure at the time of the procedure
CPT/HCPCS: 11042; 97597

== ENCOUNTER 2020-07-13 12:50 | Outpatient (CLI) | payer BC ==
[2020-07-13] MEDS ORDERED: LIDOcaine 2% 5ml jelly ONE (13:28)
== END 2020-07-13 23:59 | disposition home or self-care (01) ==
LOC: WOUND CARE 12:50
PROVIDERS: ATTEND Nurse Practitioner Family
DX: T87.89 Other complications of amputation stump (principal); L89.894 Pressure ulcer of other site, stage 4; L89.890 Pressure ulcer of other site, unstageable; I70.249 Atherosclerosis of native arteries of left leg with ulceration of unspecified site; L97.828 Non-pressure chronic ulcer of other part of left lower leg with other specified severity; E87.1 Hypo-osmolality and hyponatremia; M79.89 Other specified soft tissue disorders; F12.90 Cannabis use, unspecified, uncomplicated; Z89.512 Acquired absence of left leg below knee; Z79.899 Other long term (current) drug therapy; Z87.442 Personal history of urinary calculi; Z89.511 Acquired absence of right leg below knee; Z86.718 Personal history of other venous thrombosis and embolism; Z79.01 Long term (current) use of anticoagulants; Y83.5 Amputation of limb(s) as the cause of abnormal reaction of the patient, or of later complication, without mention of misadventure at the time of the procedure
CPT/HCPCS: 97597; 97598

== ENCOUNTER → 2020-07-20 | Outpatient (CLI) | payer BC ==
[~2020-07-20] MED LIST changes: +LIDOcaine 2% 5ml jelly ONE
== END | disposition home or self-care (01) ==
LOC: EDSTATUS 13:20 → WOUND CARE 13:39
PROVIDERS: ATTEND Nurse Practitioner Family
DX: T87.89 Other complications of amputation stump (principal); L89.894 Pressure ulcer of other site, stage 4; L89.890 Pressure ulcer of other site, unstageable; I70.249 Atherosclerosis of native arteries of left leg with ulceration of unspecified site; L97.828 Non-pressure chronic ulcer of other part of left lower leg with other specified severity; E87.1 Hypo-osmolality and hyponatremia; M79.89 Other specified soft tissue disorders; F12.90 Cannabis use, unspecified, uncomplicated; Z89.512 Acquired absence of left leg below knee; Z79.899 Other long term (current) drug therapy; Z87.442 Personal history of urinary calculi; Z89.511 Acquired absence of right leg below knee; Z86.718 Personal history of other venous thrombosis and embolism; Z79.01 Long term (current) use of anticoagulants; Y83.5 Amputation of limb(s) as the cause of abnormal reaction of the patient, or of later complication, without mention of misadventure at the time of the procedure
CPT/HCPCS: 97597

== ENCOUNTER 2020-07-27 13:11 | Outpatient (CLI) | payer BC ==
[~2020-07-27 13:11] MED LIST changes: -LIDOcaine 2% 5ml jelly ONE
[2020-07-27] MEDS ORDERED: LIDOcaine 2% 5ml jelly ONE (13:47)
== END 2020-07-27 23:59 | disposition home or self-care (01) ==
LOC: WOUND CARE 13:11
PROVIDERS: ATTEND Nurse Practitioner Family
DX: T87.89 Other complications of amputation stump (principal); L89.894 Pressure ulcer of other site, stage 4; L89.890 Pressure ulcer of other site, unstageable; I70.248 Atherosclerosis of native arteries of left leg with ulceration of other part of lower leg; L97.821 Non-pressure chronic ulcer of other part of left lower leg limited to breakdown of skin; E87.1 Hypo-osmolality and hyponatremia; M79.89 Other specified soft tissue disorders; F12.90 Cannabis use, unspecified, uncomplicated; Z89.512 Acquired absence of left leg below knee; Z79.899 Other long term (current) drug therapy; Z87.442 Personal history of urinary calculi; Z89.511 Acquired absence of right leg below knee; Z86.718 Personal history of other venous thrombosis and embolism; Z79.01 Long term (current) use of anticoagulants; Y83.5 Amputation of limb(s) as the cause of abnormal reaction of the patient, or of later complication, without mention of misadventure at the time of the procedure
CPT/HCPCS: 97597

== ENCOUNTER 2020-08-04 12:45 | Outpatient (CLI) | payer BC ==
[2020-08-04] MEDS ORDERED: LIDOcaine 2% 5ml jelly ONE (13:52)
== END 2020-08-04 23:59 | disposition home or self-care (01) ==
LOC: WOUND CARE 12:45
PROVIDERS: ATTEND Nurse Practitioner
DX: T87.89 Other complications of amputation stump (principal); L89.894 Pressure ulcer of other site, stage 4; L89.890 Pressure ulcer of other site, unstageable; I70.248 Atherosclerosis of native arteries of left leg with ulceration of other part of lower leg; L97.821 Non-pressure chronic ulcer of other part of left lower leg limited to breakdown of skin; E87.1 Hypo-osmolality and hyponatremia; M79.89 Other specified soft tissue disorders; F12.90 Cannabis use, unspecified, uncomplicated; Z89.512 Acquired absence of left leg below knee; Z79.899 Other long term (current) drug therapy; Z87.442 Personal history of urinary calculi; Z89.511 Acquired absence of right leg below knee; Z86.718 Personal history of other venous thrombosis and embolism; Z79.01 Long term (current) use of anticoagulants; Y83.5 Amputation of limb(s) as the cause of abnormal reaction of the patient, or of later complication, without mention of misadventure at the time of the procedure
CPT/HCPCS: G0463

== ENCOUNTER 2020-08-11 12:45 | Outpatient (CLI) | payer BC ==
[2020-08-11] MEDS ORDERED: LIDOcaine 2% 5ml jelly ONE ×2 (14:03)
== END 2020-08-11 23:59 | disposition home or self-care (01) ==
LOC: WOUND CARE 12:45
PROVIDERS: ATTEND Nurse Practitioner Family
DX: T87.89 Other complications of amputation stump (principal); L89.894 Pressure ulcer of other site, stage 4; L89.890 Pressure ulcer of other site, unstageable; I70.248 Atherosclerosis of native arteries of left leg with ulceration of other part of lower leg; L97.821 Non-pressure chronic ulcer of other part of left lower leg limited to breakdown of skin; E87.1 Hypo-osmolality and hyponatremia; E87.6 Hypokalemia; D50.9 Iron deficiency anemia, unspecified; Z79.899 Other long term (current) drug therapy; F12.90 Cannabis use, unspecified, uncomplicated; Z89.512 Acquired absence of left leg below knee; Z87.442 Personal history of urinary calculi; Z89.511 Acquired absence of right leg below knee; Z86.718 Personal history of other venous thrombosis and embolism; Z79.01 Long term (current) use of anticoagulants; Y83.5 Amputation of limb(s) as the cause of abnormal reaction of the patient, or of later complication, without mention of misadventure at the time of the procedure
CPT/HCPCS: 97597

== ENCOUNTER 2020-08-18 14:06 | Day surgery (SDC) | payer BC ==
[2020-08-18] MEDS ORDERED: LIDOcaine 2% 5ml jelly ONE (14:36)
== END 2020-09-13 15:00 | disposition home or self-care (01) ==
LOC: WOUND CARE 14:06
PROVIDERS: ATTEND Nurse Practitioner
DX: T87.89 Other complications of amputation stump (principal); L89.894 Pressure ulcer of other site, stage 4; L89.890 Pressure ulcer of other site, unstageable; I70.248 Atherosclerosis of native arteries of left leg with ulceration of other part of lower leg; L97.821 Non-pressure chronic ulcer of other part of left lower leg limited to breakdown of skin; E87.1 Hypo-osmolality and hyponatremia; E87.6 Hypokalemia; D50.9 Iron deficiency anemia, unspecified; Z79.899 Other long term (current) drug therapy; F12.90 Cannabis use, unspecified, uncomplicated; Z89.512 Acquired absence of left leg below knee; Z87.442 Personal history of urinary calculi; Z89.511 Acquired absence of right leg below knee; Z86.718 Personal history of other venous thrombosis and embolism; Z79.01 Long term (current) use of anticoagulants; Y83.5 Amputation of limb(s) as the cause of abnormal reaction of the patient, or of later complication, without mention of misadventure at the time of the procedure
CPT/HCPCS: G0463

== ENCOUNTER → 2020-10-13 | Outpatient (CLI) | payer BC ==
[~2020-10-13] MED LIST changes: +LIDOcaine 2% 5ml jelly ONE
== END | disposition home or self-care (01) ==
LOC: WOUND CARE 10:36
PROVIDERS: ATTEND Nurse Practitioner
DX: T87.89 Other complications of amputation stump (principal); L89.890 Pressure ulcer of other site, unstageable; I70.248 Atherosclerosis of native arteries of left leg with ulceration of other part of lower leg; L97.821 Non-pressure chronic ulcer of other part of left lower leg limited to breakdown of skin; E87.1 Hypo-osmolality and hyponatremia; E87.6 Hypokalemia; D50.9 Iron deficiency anemia, unspecified; F12.90 Cannabis use, unspecified, uncomplicated; Z79.899 Other long term (current) drug therapy; Z89.512 Acquired absence of left leg below knee; Z87.442 Personal history of urinary calculi; Z89.511 Acquired absence of right leg below knee; Z86.718 Personal history of other venous thrombosis and embolism; Z79.01 Long term (current) use of anticoagulants; Y83.5 Amputation of limb(s) as the cause of abnormal reaction of the patient, or of later complication, without mention of misadventure at the time of the procedure
CPT/HCPCS: 11042

== ENCOUNTER 2023-05-23 22:13 | Inpatient (IN) | payer MEDICAID ==
[~2023-05-23] VITALS: Ht 165.1 cm; Wt 81.7 kg
[~2023-05-23 22:13] MED LIST changes: -APIX5TAB3 PO; +ASPI-1071 PO; -BAC10T PO; -HYDR-4353 PO; +HYDR28CR14 TP; +LACT1CAP26 PO; -LIDOcaine 2% 5ml jelly ONE; +NYST15CR36 TP; +OXYC-150 PO; -PANT40TA54 PO; -VANC125C11 PO; +WARF-55 PO
[2023-05-23 22:44] LABS: BASOPHILS # (AUTO) 0.1 X10'3 (0-0.2)
[2023-05-23 22:46] LABS: BASOPHILS % (AUTO) 0.4 % (0-1); EOSINOPHILS % (AUTO) 0.2 % (0-6); HEMATOCRIT 34.7 % (42.0-52.0); HEMOGLOBIN 11.2 g/dl (14.0-17.9); LYMPHOCYTES # (AUTO) 1.9 X10'3 (1.1-4.8); MEAN CORPUSCULAR HEMOGLOBIN 30.7 PG (27.0-31.0); MEAN CORPUSCULAR HGB CONC 32.4 g/dL (33.0-36.5); MEAN CORPUSCULAR VOLUME 94.8 FL (78-98); MEAN PLATELET VOLUME 7.4 FL (7.4-10.4); MONOCYTES # (AUTO) 1.2 X10'3 (0-0.9); MONOCYTES % (AUTO) 8.7 % (2-12); NEUTROPHILS # (AUTO) 10.4 X10'3 (1.8-7.7); NEUTROPHILS % (AUTO) 76.7 % (42-75); PLATELET COUNT 803 X10'3 (140-440); RED BLOOD COUNT 3.66 X10'6 (4.70-6.10); RED CELL DISTRIBUTION WIDTH 15.2 % (11.5-14.5); WHITE BLOOD COUNT 13.6 X10'3 (4.5-11.0)
[2023-05-23 22:53] LABS: ALANINE AMINOTRANSFERASE 19 U/L (12-78); ALBUMIN 2.5 G/DL (3.4-5.0); ALBUMIN/GLOBULIN RATIO 0.5 (1.1-1.5); ALKALINE PHOSPHATASE 179 IU/L (46-116); ANION GAP 17 (8-16); ASPARTATE AMINO TRANSFERASE 11 U/L (10-37); BILIRUBIN,TOTAL 0.4 MG/DL (0.1-1.0); BLOOD UREA NITROGEN 8 MG/DL (7-18); BUN/CREATININE RATIO 12.1 (10.0-20.0); CALCIUM 9.7 MG/DL (8.5-10.1); CHLORIDE 98 MMOL/L (99-107); CREATININE 0.66 MG/DL (0.60-1.10); GLUCOSE 126 MG/DL (70-104); POTASSIUM 3.1 MMOL/L (3.5-5.1); SODIUM 136 MMOL/L (135-145); TOTAL CARBON DIOXIDE 20.8 MMOL/L (24-32); TOTAL PROTEIN 7.8 G/DL (6.4-8.2); eCRCL 106 ML/MIN; eGFR > 90 ML/MIN
[2023-05-23] MEDS ORDERED: morphine 4 MG/ML inj SYRINge IV ONE ×2 (22:55→23:50)
[2023-05-23] MEDS ORDERED: ondansetron/PF 4mg/2ml inj IV ONE (22:55)
[2023-05-23] MEDS ORDERED: LORazepam 2 mg/ml vial IV ONE (23:00)
[2023-05-23 23:02] LABS: PRO BRAIN NATRIURETIC PEPTIDE 374 PG/ML (0-125)
[2023-05-23] MEDS ORDERED: iohexol 350MG/ML 100ml bottle IV ONE (23:07)
[2023-05-23 23:57] LABS: BILIRUBIN,URINE NEGATIVE (Neg); CLARITY,URINE CLEAR (Clear); COLOR,URINE YELLOW (Yellow); GLUCOSE, URINE NEGATIVE (Neg); KETONES,URINE 15 mg/dl (Neg); LEUKOCYTE ESTERASE ,URINE NEGATIVE (Neg); NITRITES, URINE NEGATIVE (Neg); OCCULT BLOOD,URINE MODERATE (Neg); PROTEIN,URINE TRACE mg/dl (Neg); UROBILINOGEN,URINE 0.2 E.U/dL (0.2-1.0)
[2023-05-24 00:16] LABS: UA COLLECTION TYPE CLN CATCH MIDSTREAM
[2023-05-24 00:21] LABS: MUCUS STRANDS MODERATE /LPF (Neg); SQUAMOUS EPITHELIAL CELL,UR FEW /LPF (FEW)
[2023-05-24 00:23] LABS: BACTERIA,URINE FEW /HPF (Neg); WBC,URINE 0-4 /HPF (0-4)
[2023-05-24] MEDS ORDERED: HYDROmorphone inj. 0.5 MG/0.5 ML DISP.SYRIN IV ONE ×2 (02:20→06:50)
[2023-05-24] MEDS ORDERED: potassium Cl 20 mEq SR tablet PO PRN (02:55)
[2023-05-24] MEDS: CefTRIAXone/D5W-Rocephin 1gm 50 ML IV SCH ×2 (02:55→07:17)
[2023-05-24] MEDS ORDERED: potassium Cl 40MEQ/1/2NS 520ml 520 ML IV PRN (02:55)
[2023-05-24] MEDS ORDERED: magnesium Cl slow-release 64mg tablet PO PRN (02:55)
[2023-05-24] MEDS ORDERED: ondansetron/PF 4mg/2ml inj IV PRN (02:55)
[2023-05-24] MEDS ORDERED: magnesium 4gm in 100ml NS 100 ML IV PRN (02:55)
[2023-05-24] MEDS ORDERED: magnesium 2GM in 50ml NS 50 ML IV PRN (02:55)
[2023-05-24] MEDS ORDERED: mag hydrox/Alum hydrox/simeth 30ml oral suspension PO PRN (02:55)
[2023-05-24] MEDS ORDERED: magnesium hydroxide 30ml (MOM) UD suspension PO PRN (02:55)
[2023-05-24] MEDS ORDERED: acetaminophen 325mg tablet PO PRN (02:55)
[2023-05-24] MEDS ORDERED: HYDROmorphone/PF 0.2 MG/ML SYRINGE IV PRN (02:55)
[2023-05-24] MEDS ORDERED: HYDROmorphone inj. 0.5 MG/0.5 ML DISP.SYRIN IV PRN (02:55)
--- NOTE | 2023-05-24 06:04 | NUR ---
Report received from Marisol RHOADES. Pt arrived on unit at 0558. Pt placed in bed, Tele monitor placed. Pt stable but in pain at time of transfer.
--- NOTE | 2023-05-24 06:27 | NUR ---
Problems reprioritized. Patient report given, questions answered & plan of care reviewed with Mary RHOADES.
--- NOTE | 2023-05-24 06:28 | NUR ---
Patient in room PCU 3015. I have received report from kezia gerard and had the opportunity to ask questions and assume patient care.
[2023-05-24] MEDS ORDERED: HYDROmorphone inj. 0.5 MG/0.5 ML DISP.SYRIN IM ONE (06:50)
--- NOTE | 2023-05-24 06:56 | NUR ---
During hourly rounding, patient was seated in [place]'s position c/o abdomen and chest pain. Patient requested an increased dose of Dilauidid -- nurse called MD for request. Addendum: 05/24/23 at 0659 by Kati ELLISON-KARSON Amended: Links added.
[2023-05-24 07:19] LABS: MAGNESIUM 2.1 MG/DL (1.5-2.4); POTASSIUM 3.4 MMOL/L (3.5-5.1)
[2023-05-24] MEDS: potassium Cl 20 mEq SR tablet PO PRN ×2 (07:29→21:03)
[2023-05-24] MEDS: docusate sod 100mg capsule PO SCH ×2 (07:33→20:00)
[2023-05-24] MEDS: K and/or MAG REPLACEMENT MC SCH ×2 (07:34→20:00)
[2023-05-24] MEDS ORDERED: furosemide 10 MG/1 ML 10ml inj IV SCH (08:00)
[2023-05-24] MEDS: HYDROmorphone 1 mg/ml syringe IV PRN ×4 (09:50→22:24)
[2023-05-24 10:15] LABS: PROTHROMBIN TIME 10.8 SECONDS (9.0-12.0)
[2023-05-24] MEDS ORDERED: APIX5TAB3 PO (10:56)
[2023-05-24] MEDS ORDERED: HYDR-3972 PO (10:56)
[2023-05-24 11:00] VITALS: BP 115/86; PULSE 116; RESP 24; TEMP 96.8; O2SAT 94
[2023-05-24 13:05] LABS: HEMOGLOBIN 10.5 g/dl (14.0-17.9)
[2023-05-24 13:08] LABS: BASOPHILS # (AUTO) 0.1 X10'3 (0-0.2); BASOPHILS % (AUTO) 0.8 % (0-1); EOSINOPHILS % (AUTO) 0.2 % (0-6); HEMATOCRIT 31.8 % (42.0-52.0); LYMPHOCYTES # (AUTO) 1.1 X10'3 (1.1-4.8); LYMPHOCYTES % (AUTO) 9.8 % (21-51); MEAN CORPUSCULAR HEMOGLOBIN 31.6 PG (27.0-31.0); MEAN CORPUSCULAR HGB CONC 33.2 g/dL (33.0-36.5); MEAN CORPUSCULAR VOLUME 95.3 FL (78-98); MEAN PLATELET VOLUME 7.3 FL (7.4-10.4); MONOCYTES # (AUTO) 1.2 X10'3 (0-0.9); MONOCYTES % (AUTO) 11.3 % (2-12); NEUTROPHILS # (AUTO) 8.5 X10'3 (1.8-7.7); NEUTROPHILS % (AUTO) 77.9 % (42-75); PLATELET COUNT 759 X10'3 (140-440); RED BLOOD COUNT 3.34 X10'6 (4.70-6.10); RED CELL DISTRIBUTION WIDTH 15.4 % (11.5-14.5); WHITE BLOOD COUNT 10.9 X10'3 (4.5-11.0)
[2023-05-24 15:00] VITALS: BP 128/85; PULSE 118; RESP 16; TEMP 98.4; O2SAT 98
[2023-05-24 18:00] VITALS: BP 117/75; PULSE 115; RESP 20; TEMP 97.6; O2SAT 96
--- NOTE | 2023-05-24 18:37 | NUR ---
Problems reprioritized. Patient report given, questions answered & plan of care reviewed with .
--- NOTE | 2023-05-24 19:30 | NUR ---
Resident Jennifer VILLASEÑOR called about pt possible surgery. Will not be tonight. Resident ordered to make pt NPO at midnight. Orders read back and placed per
[2023-05-24 20:00] VITALS: RESP 20; O2SAT 96
[2023-05-24] MEDS ORDERED: enoxaparin 40mg/0.4ml syringe SQ SCH (20:00)
[2023-05-24 22:00] VITALS: BP 128/78; PULSE 112; RESP 18; TEMP 97.1; O2SAT 94
[2023-05-25] VITALS (17 sets, daily range): BP systolic 16–157; BP diastolic 58–94; PULSE 100–127; RESP 15–36; TEMP 97–98; O2SAT 90–96
[2023-05-25] MEDS: HYDROmorphone 1 mg/ml syringe IV PRN ×6 (02:28→22:04)
[2023-05-25] MEDS: potassium Cl 20 mEq SR tablet PO PRN (02:31)
--- NOTE | 2023-05-25 04:19 | NUR ---
I was present at time of physical assessment and agree with all findings from Eral ARMSTRONG
--- NOTE | 2023-05-25 06:24 | NUR ---
Problems reprioritized. Patient report given to Darrel RHOADES questions answered & plan of care reviewed with .
[2023-05-25] MEDS: K and/or MAG REPLACEMENT MC SCH ×2 (06:58→20:07)
[2023-05-25] MEDS: docusate sod 100mg capsule PO SCH ×2 (06:58→20:00)
[2023-05-25 07:23] LABS: BASOPHILS # (AUTO) 0.1 X10'3 (0-0.2); EOSINOPHILS # (AUTO) 0.1 X10'3 (0-0.9); EOSINOPHILS % (AUTO) 0.8 % (0-6); HEMOGLOBIN 10.7 g/dl (14.0-17.9); MEAN PLATELET VOLUME 7.4 FL (7.4-10.4); RED CELL DISTRIBUTION WIDTH 15.5 % (11.5-14.5)
[2023-05-25 07:25] LABS: BASOPHILS % (AUTO) 1.1 % (0-1); HEMATOCRIT 31.5 % (42.0-52.0); LYMPHOCYTES # (AUTO) 1.1 X10'3 (1.1-4.8); LYMPHOCYTES % (AUTO) 12.7 % (21-51); MEAN CORPUSCULAR HEMOGLOBIN 32.4 PG (27.0-31.0); MEAN CORPUSCULAR VOLUME 95.3 FL (78-98); MONOCYTES % (AUTO) 11.6 % (2-12); NEUTROPHILS # (AUTO) 6.2 X10'3 (1.8-7.7); NEUTROPHILS % (AUTO) 73.8 % (42-75); PLATELET COUNT 719 X10'3 (140-440); WHITE BLOOD COUNT 8.3 X10'3 (4.5-11.0)
[2023-05-25] MEDS ORDERED: fentaNYL/PF 50MCG/1 ML 2ML syringe ONE (07:28)
[2023-05-25] MEDS ORDERED: midazolam 1 mg/ML 2ml injection ONE (07:28)
[2023-05-25] MEDS ORDERED: LIDOcaine 1% (10mg/ml)w/preservative inj. 20ml MDV ONE (07:29)
[2023-05-25 07:46] LABS: ALANINE AMINOTRANSFERASE 18 U/L (12-78); ALBUMIN 2.2 G/DL (3.4-5.0); ALBUMIN/GLOBULIN RATIO 0.4 (1.1-1.5); ALKALINE PHOSPHATASE 198 IU/L (46-116); ANION GAP 7 (8-16); ASPARTATE AMINO TRANSFERASE 19 U/L (10-37); BILIRUBIN,TOTAL 0.5 MG/DL (0.1-1.0); BLOOD UREA NITROGEN 10 MG/DL (7-18); BUN/CREATININE RATIO 16.7 (10.0-20.0); CALCIUM 10.1 MG/DL (8.5-10.1); CHLORIDE 99 MMOL/L (99-107); GLUCOSE 112 MG/DL (70-104); MAGNESIUM 1.9 MG/DL (1.5-2.4); POTASSIUM 3.9 MMOL/L (3.5-5.1); PRO BRAIN NATRIURETIC PEPTIDE 325 PG/ML (0-125); SODIUM 133 MMOL/L (135-145); TOTAL CARBON DIOXIDE 26.8 MMOL/L (24-32); TOTAL PROTEIN 7.5 G/DL (6.4-8.2); eCRCL 117 ML/MIN; eGFR > 90 ML/MIN
[2023-05-25 07:54] LABS: % IRON SATURATION 4 % (11-46); IRON 16 UG/DL (53-167); TOTAL IRON BINDING CAPACITY 428 UG/DL (259-388)
[2023-05-25] MEDS: furosemide 40mg/4ml inj IV SCH (08:00)
--- NOTE | 2023-05-25 10:15 | NUR ---
Patient in room ICU 2041. I have received report from Darrel RHOADES PCU and had the opportunity to ask questions and assume patient care. Pt brought from [employer] with monitor. O2 sats in upper 80s but O2 was not provided during transport. Pt moved to ICU bed x 4 RNs without incident. Pt positioned to comfort with HOB elevated.
[2023-05-25 10:27] LABS: TOTAL PROTEIN,BODY FLUID 5.7 G/DL
--- NOTE | 2023-05-25 10:30 | NUR ---
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 He has a large abdominal hernia with the pericardial drain over that hernia connected to a chest tube atrium which was to gravity suction only. There was some serosanguineous drainage in the tubing but nothing had reached the atrium at that point. Dressing had a small amt of oozing around it be non leaking out of the none occlusive dressing. Pt was aware of his need to not dislodge the tube. He was positioned to comfort, his persona items placed at the foot of his bed. He wanted food and a tray was orders, delivered and he ate it all. Lunch followed
[2023-05-25] MEDS ORDERED: HYDROmorphone 1 mg/ml syringe IV PRN (10:50)
--- NOTE | 2023-05-25 11:00 | NUR ---
MD visit Dr. Oro to see pt w/two residents. Pt examined and plan clarified and pain control discussed. Pt did state his pain was controlled pretty well. Pt, on arrival to unit, was c/o hunger. Food ordered and eventually provided which improved his mood. He did request to talk to Dr. Streeter as he has an appt with him for reconnection of his ileostomy. I let him know Dr. Streeter was in the OR right now so contacting him would not be possible until later.
[2023-05-25] MEDS: CefTRIAXone/D5W-Rocephin 1gm 50 ML IV SCH (11:23)
--- NOTE | 2023-05-25 11:24 | NUR ---
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 Plan is to resume schedule.
[2023-05-25] MEDS: morphine ER 15mg tablet PO SCH ×2 (16:05→23:50)
--- NOTE | 2023-05-25 19:14 | NUR ---
MD visit Dr. Streeter stopped in to see pt briefly about a plan for his hernia & reconnection. Pt indicates pain in better. Family to see pt earlier today. Eating & drinking well. Dressing remains intact with dressing unchanged.
--- NOTE | 2023-05-25 23:12 | NUR ---
Problems reprioritized. Patient report given, questions answered & plan of care reviewed with Hayder RHOADES.
[2023-05-26] VITALS (23 sets, daily range): BP systolic 111–158; BP diastolic 77–90; PULSE 12–126; RESP 14–24; O2SAT 94–96
[2023-05-26] MEDS ORDERED: HYDROmorphone inj. 0.5 MG/0.5 ML DISP.SYRIN ONE (01:58)
[2023-05-26] MEDS: HYDROmorphone 1 mg/ml syringe IV PRN ×6 (06:04→22:55)
--- NOTE | 2023-05-26 06:11 | NUR ---
Problems reprioritized. Patient report given, questions answered & plan of care reviewed with JF Metcalf.
--- NOTE | 2023-05-26 06:30 | NUR ---
Report received from Henry RHOADES,
[2023-05-26 06:41] LABS: BASOPHILS % (AUTO) 0.3 % (0-1); EOSINOPHILS # (AUTO) 0.1 X10'3 (0-0.9); EOSINOPHILS % (AUTO) 1.1 % (0-6); HEMATOCRIT 33.1 % (42.0-52.0); LYMPHOCYTES # (AUTO) 1.5 X10'3 (1.1-4.8); LYMPHOCYTES % (AUTO) 20.9 % (21-51); MEAN CORPUSCULAR HEMOGLOBIN 31.7 PG (27.0-31.0); MEAN CORPUSCULAR HGB CONC 33.3 g/dL (33.0-36.5); MEAN CORPUSCULAR VOLUME 95.4 FL (78-98); MEAN PLATELET VOLUME 7.3 FL (7.4-10.4); MONOCYTES # (AUTO) 0.9 X10'3 (0-0.9); MONOCYTES % (AUTO) 12.5 % (2-12); NEUTROPHILS # (AUTO) 4.7 X10'3 (1.8-7.7); NEUTROPHILS % (AUTO) 65.2 % (42-75); PLATELET COUNT 742 X10'3 (140-440); RED BLOOD COUNT 3.47 X10'6 (4.70-6.10); RED CELL DISTRIBUTION WIDTH 15.2 % (11.5-14.5); WHITE BLOOD COUNT 7.1 X10'3 (4.5-11.0)
[2023-05-26 06:43] LABS: ALANINE AMINOTRANSFERASE 33 U/L (12-78); ALBUMIN 2.2 G/DL (3.4-5.0); ALBUMIN/GLOBULIN RATIO 0.4 (1.1-1.5); ALKALINE PHOSPHATASE 310 IU/L (46-116); ANION GAP 5 (8-16); ASPARTATE AMINO TRANSFERASE 23 U/L (10-37); BILIRUBIN,TOTAL 0.5 MG/DL (0.1-1.0); BLOOD UREA NITROGEN 9 MG/DL (7-18); BUN/CREATININE RATIO 14.5 (10.0-20.0); CALCIUM 10.2 MG/DL (8.5-10.1); CHLORIDE 95 MMOL/L (99-107); CREATININE 0.62 MG/DL (0.60-1.10); GLUCOSE 104 MG/DL (70-104); MAGNESIUM 2.1 MG/DL (1.5-2.4); POTASSIUM 3.8 MMOL/L (3.5-5.1); PRO BRAIN NATRIURETIC PEPTIDE 522 PG/ML (0-125); SODIUM 133 MMOL/L (135-145); TOTAL CARBON DIOXIDE 33.2 MMOL/L (24-32); TOTAL PROTEIN 7.4 G/DL (6.4-8.2); eCRCL 113 ML/MIN; eGFR > 90 ML/MIN
[2023-05-26] MEDS ORDERED: ferrous sulfate ER tablet 140 MG TABLET.ER PO SCH (08:00)
[2023-05-26] MEDS: K and/or MAG REPLACEMENT MC SCH ×2 (08:00→20:23)
[2023-05-26] MEDS: morphine ER 15mg tablet PO SCH ×3 (08:05→23:50)
[2023-05-26] MEDS: docusate sod 100mg capsule PO SCH ×2 (08:05→20:36)
[2023-05-26] MEDS: furosemide 40mg/4ml inj IV SCH (08:05)
[2023-05-26] MEDS: CefTRIAXone/D5W-Rocephin 1gm 50 ML IV SCH (08:06)
--- NOTE | 2023-05-26 08:15 | NUR ---
Echo done at bedside. AM meds given to pt including MS Contin. Pt repositions himself.
[2023-05-26 08:26] LABS: LACTATE DEHYDROGENASE 136 U/L (85-227)
[2023-05-26] MEDS: FERROUS SULFATE 142 MG TABLET.ER (45mg elemental) PO SCH ×2 (10:40→20:36)
[2023-05-26 11:37] LABS: ALANINE AMINOTRANSFERASE 40 U/L (12-78); ALBUMIN 2.2 G/DL (3.4-5.0); ALBUMIN/GLOBULIN RATIO 0.4 (1.1-1.5); ALKALINE PHOSPHATASE 394 IU/L (46-116); ASPARTATE AMINO TRANSFERASE 57 U/L (10-37); BILIRUBIN,DIRECT 0.3 MG/DL (0-0.3); BILIRUBIN,TOTAL 0.6 MG/DL (0.1-1.0); C-REACTIVE PROTEIN 20.73 MG/DL (0.0-0.5); TOTAL PROTEIN 7.7 G/DL (6.4-8.2)
--- NOTE | 2023-05-26 11:56 | NUR ---
Dr. Carbone at bedside to flush pericardial tube to loosen the fluids. Pt has been changing position q 10 min x 2.
[2023-05-26 12:09] LABS: APTT 29 SECONDS (22-32); PROTHROMBIN TIME 10.7 SECONDS (9.0-12.0)
--- NOTE | 2023-05-26 14:20 | NUR ---
Pt medicated for lower chest/ upper abd pain.
--- NOTE | 2023-05-26 16:10 | NUR ---
Pt medicated w/ routine MS Contin po.
--- NOTE | 2023-05-26 18:35 | NUR ---
I have received report and assumed care of a 57 year old male admitted with a pericardial effusion, pt has a relevant history of CAD, vascular surgery including BKA and AKA, and ulcerative colitis. He has a pericardial drain in place pending cytology report. his EF is 60%, Pt speaks in complete sentences without difficulties, no crepitus noted. Pt repositions self without difficulties.
[2023-05-26] MEDS: apixaban 5mg tablet PO SCH (20:36)
[2023-05-27] VITALS (17 sets, daily range): BP systolic 119–156; BP diastolic 76–93; PULSE 111–127; RESP 14–24; O2SAT 91–98
--- NOTE | 2023-05-27 01:25 | NUR ---
report given to rec rn plan of care reviewed
--- NOTE | 2023-05-27 01:25 | NUR ---
Patient in room ICU 2041. I have received report from Elva Casarez RN and had the opportunity to ask questions and assume patient care.
[2023-05-27] MEDS: HYDROmorphone 1 mg/ml syringe IV PRN ×6 (02:55→22:51)
--- NOTE | 2023-05-27 06:25 | NUR ---
Problems reprioritized. Patient report given, questions answered & plan of care reviewed with Paola RHOADES.
[2023-05-27] MEDS: pantoprazole 40mg Tablet.DR PO SCH (07:03)
[2023-05-27] MEDS: K and/or MAG REPLACEMENT MC SCH ×2 (08:00→20:00)
[2023-05-27] MEDS: FERROUS SULFATE 142 MG TABLET.ER (45mg elemental) PO SCH ×2 (08:33→19:55)
[2023-05-27] MEDS: morphine ER 15mg tablet PO SCH ×3 (08:33→23:56)
[2023-05-27] MEDS: docusate sod 100mg capsule PO SCH ×2 (08:34→19:56)
[2023-05-27] MEDS: furosemide 40mg/4ml inj IV SCH (08:34)
[2023-05-27] MEDS: apixaban 5mg tablet PO SCH ×2 (08:34→19:55)
[2023-05-27] MEDS: CefTRIAXone/D5W-Rocephin 1gm 50 ML IV SCH (08:38)
[2023-05-27 12:08] LABS: EOSINOPHILS # (AUTO) 0.1 X10'3 (0-0.9); MEAN CORPUSCULAR VOLUME 93.1 FL (78-98); MEAN PLATELET VOLUME 6.9 FL (7.4-10.4)
[2023-05-27 12:09] LABS: BASOPHILS % (AUTO) 0.5 % (0-1); EOSINOPHILS % (AUTO) 0.5 % (0-6); HEMATOCRIT 31.2 % (42.0-52.0); HEMOGLOBIN 10.5 g/dl (14.0-17.9); LYMPHOCYTES # (AUTO) 0.7 X10'3 (1.1-4.8); LYMPHOCYTES % (AUTO) 6.9 % (21-51); MEAN CORPUSCULAR HEMOGLOBIN 31.2 PG (27.0-31.0); MEAN CORPUSCULAR HGB CONC 33.5 g/dL (33.0-36.5); MONOCYTES # (AUTO) 1.3 X10'3 (0-0.9); MONOCYTES % (AUTO) 12.8 % (2-12); NEUTROPHILS # (AUTO) 7.7 X10'3 (1.8-7.7); NEUTROPHILS % (AUTO) 79.3 % (42-75); PLATELET COUNT 722 X10'3 (140-440); RED BLOOD COUNT 3.35 X10'6 (4.70-6.10); RED CELL DISTRIBUTION WIDTH 15.7 % (11.5-14.5); WHITE BLOOD COUNT 9.8 X10'3 (4.5-11.0)
[2023-05-27 12:41] LABS: ALANINE AMINOTRANSFERASE 113 U/L (12-78); ALBUMIN 2.2 G/DL (3.4-5.0); ALBUMIN/GLOBULIN RATIO 0.4 (1.1-1.5); ALKALINE PHOSPHATASE 756 IU/L (46-116); ANION GAP 6 (8-16); ASPARTATE AMINO TRANSFERASE 176 U/L (10-37); BILIRUBIN,TOTAL 0.9 MG/DL (0.1-1.0); BLOOD UREA NITROGEN 7 MG/DL (7-18); BUN/CREATININE RATIO 11.9 (10.0-20.0); CALCIUM 9.8 MG/DL (8.5-10.1); CHLORIDE 91 MMOL/L (99-107); CREATININE 0.59 MG/DL (0.60-1.10); GLUCOSE 128 MG/DL (70-104); PRO BRAIN NATRIURETIC PEPTIDE 250 PG/ML (0-125); SODIUM 128 MMOL/L (135-145); TOTAL CARBON DIOXIDE 31.3 MMOL/L (24-32); TOTAL PROTEIN 7.8 G/DL (6.4-8.2); eCRCL 119 ML/MIN; eGFR > 90 ML/MIN
[2023-05-27] MEDS ORDERED: normal saline 1000ml 1,000 ML IV ONE (13:25)
[2023-05-27] MEDS ORDERED: metoprolol tartrate 1mg/ml inj IV ONE (15:55)
--- NOTE | 2023-05-27 18:25 | NUR ---
Patient in room ICU 2041. I have received report from Paola RHOADES and had the opportunity to ask questions and assume patient care.
[2023-05-27] MEDS: metoprolol tartrate 25mg tablet PO SCH (19:54)
[2023-05-28] VITALS (8 sets, daily range): BP systolic 111–130; BP diastolic 60–76; PULSE 108–114; RESP 14–22; O2SAT 91–95
[2023-05-28 02:11] LABS: BASOPHILS # (AUTO) 0.1 X10'3 (0-0.2); EOSINOPHILS # (AUTO) 0.1 X10'3 (0-0.9); MEAN PLATELET VOLUME 7.2 FL (7.4-10.4); NEUTROPHILS # (AUTO) 5.9 X10'3 (1.8-7.7)
[2023-05-28 02:15] LABS: BASOPHILS % (AUTO) 0.9 % (0-1); EOSINOPHILS % (AUTO) 1.2 % (0-6); HEMATOCRIT 31.7 % (42.0-52.0); HEMOGLOBIN 10.6 g/dl (14.0-17.9); LYMPHOCYTES # (AUTO) 1.2 X10'3 (1.1-4.8); LYMPHOCYTES % (AUTO) 14.1 % (21-51); MEAN CORPUSCULAR HEMOGLOBIN 31.1 PG (27.0-31.0); MEAN CORPUSCULAR HGB CONC 33.4 g/dL (33.0-36.5); MEAN CORPUSCULAR VOLUME 93.3 FL (78-98); MONOCYTES # (AUTO) 1.4 X10'3 (0-0.9); MONOCYTES % (AUTO) 16.2 % (2-12); NEUTROPHILS % (AUTO) 67.6 % (42-75); PLATELET COUNT 740 X10'3 (140-440); RED BLOOD COUNT 3.39 X10'6 (4.70-6.10); RED CELL DISTRIBUTION WIDTH 15.2 % (11.5-14.5); WHITE BLOOD COUNT 8.8 X10'3 (4.5-11.0)
[2023-05-28 02:24] LABS: ALANINE AMINOTRANSFERASE 109 U/L (12-78); ALBUMIN 2.1 G/DL (3.4-5.0); ALKALINE PHOSPHATASE 714 IU/L (46-116); ANION GAP 4 (8-16); ASPARTATE AMINO TRANSFERASE 83 U/L (10-37); BILIRUBIN,TOTAL 0.6 MG/DL (0.1-1.0); BLOOD UREA NITROGEN 9 MG/DL (7-18); BUN/CREATININE RATIO 14.1 (10.0-20.0); CHLORIDE 94 MMOL/L (99-107); CREATININE 0.64 MG/DL (0.60-1.10); MAGNESIUM 2.2 MG/DL (1.5-2.4); POTASSIUM 4.2 MMOL/L (3.5-5.1); SODIUM 130 MMOL/L (135-145); TOTAL CARBON DIOXIDE 32.1 MMOL/L (24-32); eCRCL 109 ML/MIN; eGFR > 90 ML/MIN
[2023-05-28 02:25] LABS: ALBUMIN/GLOBULIN RATIO 0.4 (1.1-1.5); GLUCOSE 126 MG/DL (70-104); TOTAL PROTEIN 7.8 G/DL (6.4-8.2)
[2023-05-28] MEDS: HYDROmorphone 1 mg/ml syringe IV PRN ×2 (03:04→07:10)
--- NOTE | 2023-05-28 06:19 | NUR ---
Problems reprioritized. Patient report given, questions answered & plan of care reviewed with Paola RHOADES.
[2023-05-28] MEDS: pantoprazole 40mg Tablet.DR PO SCH (07:10)
[2023-05-28] MEDS: K and/or MAG REPLACEMENT MC SCH (08:00)
[2023-05-28] MEDS: docusate sod 100mg capsule PO SCH ×2 (08:00→08:10)
[2023-05-28] MEDS: FERROUS SULFATE 142 MG TABLET.ER (45mg elemental) PO SCH (08:09)
[2023-05-28] MEDS: metoprolol tartrate 25mg tablet PO SCH (08:10)
[2023-05-28] MEDS: morphine ER 15mg tablet PO SCH (08:10)
[2023-05-28] MEDS: CefTRIAXone/D5W-Rocephin 1gm 50 ML IV SCH (08:14)
[2023-05-28] MEDS: furosemide 40mg/4ml inj IV SCH (08:14)
[2023-05-28] MEDS: apixaban 5mg tablet PO SCH (09:06)
[2023-05-28] MEDS: HYDROmorphone inj. 0.5 MG/0.5 ML DISP.SYRIN IV PRN ×2 (11:04→14:48)
[2023-05-28] MEDS ORDERED: MSC15T PO (11:23)
[2023-05-28] MEDS ORDERED: FURO-150 PO (11:23)
[2023-05-28] MEDS ORDERED: PANT40TA54 PO (11:23)
[2023-05-28] MEDS ORDERED: POTA-197 PO (11:23)
[2023-05-28] MEDS ORDERED: LOP25T PO (11:23)
[2023-05-28] MEDS ORDERED: LOSA50TA64 PO (11:23)
[2023-05-28] MEDS ORDERED: magnesium citrate 296ml oral solution PO ONE (12:50)
--- NOTE | 2023-05-28 15:09 | NUR ---
Went over discharge instructions with patient, and home medications, patient verbalized understanding of all instructions. Discussed signs/ symptoms of infection and education on pericardial effusion. Discussed alert symptoms and reasons to call the doctor. Patient verbalized understanding of all instructions and education. PIV on right forearm removed, catheter intact patient tolerated removal, hemostasis achieved. Patient discharged home with family members, left in wheelchair
[2023-05-28 18:16] LABS: PT 10.2 sec (9.1-12.0); PT 1:1NP 9.9 sec (9.1-12.0)
[2023-05-30 09:56] LABS: PROTEIN S, FREE 117 % (61-136); PROTEIN S, TOTAL 141 % (60-150)
== END 2023-05-28 15:30 | disposition home or self-care (01) | DRG 207 ==
LOC: ER 22:14 → ED HOLD 05-24 03:01 → PCU 3S 05-24 05:55 → ICU 2S 05-25 10:01
PROVIDERS: ADMIT Internal Medicine; ATTEND Internal Medicine
PROC: B32T1ZZ Computerized Tomography (CT Scan) of Left Pulmonary Artery using Low Osmolar Contrast (ICD-10-PCS; 2023-05-24)
PROC: B3201ZZ Computerized Tomography (CT Scan) of Thoracic Aorta using Low Osmolar Contrast (ICD-10-PCS; 2023-05-24)
PROC: B32S1ZZ Computerized Tomography (CT Scan) of Right Pulmonary Artery using Low Osmolar Contrast (ICD-10-PCS; 2023-05-24)
PROC: 0W9D30Z Drainage of Pericardial Cavity with Drainage Device, Percutaneous Approach (ICD-10-PCS; principal; 2023-05-25)
DX: I31.39 Other pericardial effusion (noninflammatory) (principal); Z89.611 Acquired absence of right leg above knee; M48.56XA Collapsed vertebra, not elsewhere classified, lumbar region, initial encounter for fracture; K43.9 Ventral hernia without obstruction or gangrene; N13.2 Hydronephrosis with renal and ureteral calculous obstruction; I73.9 Peripheral vascular disease, unspecified; D64.9 Anemia, unspecified; D72.829 Elevated white blood cell count, unspecified; E87.6 Hypokalemia; Z79.01 Long term (current) use of anticoagulants; Z79.82 Long term (current) use of aspirin; Z79.899 Other long term (current) drug therapy; Z86.718 Personal history of other venous thrombosis and embolism; Z86.711 Personal history of pulmonary embolism; Z90.49 Acquired absence of other specified parts of digestive tract; Z93.3 Colostomy status; Z89.512 Acquired absence of left leg below knee; Z80.42 Family history of malignant neoplasm of prostate
CPT/HCPCS: 33016; 36415; 71045; 71275; 74177; 76536; 80053; 80076; 81001; 81003; 81479; 82945; 83540; 83550; 83615; 83735; 83880; 83891; 83894; 83898; 84132; 84145; 84157; 84484; 85025; 85303; 85305; 85306; 85610; 85611; 85651; 85730; 86140; 86147; 87070; 87075; 87081; 87102; 93005; 93306; 93308; 99152; 99153; 99285; A4615; A6258; A6449; C1729; C1769; G0378; J0696; J1170; J1650; J1940; J2060; J2250; J2270; J2405; J3010; J3490; J7030; J7040; Q9967